=== PATIENT | female | born 1955 | race Caucasian/White ===

== ENCOUNTER → 2017-08-15 | Outpatient (CLI) | payer BC ==
[~2017-08-15] MED LIST: ALBU90OI INH; ALPR.25 PO; CHOLESTEROL MED?; CYCL10 PO; Cleocin HCl150 MG PO; ESOM20 PO; FURO20 PO; GABA100 PO; GABA300 PO; IBUP600 PO; LEVSOD100 PO; LEVSOD125 PO; LISI5 PO; METTREX2.5 PO; MONT10T PO; OMEP20ER PO; OXYACE5T PO; PARO20 PO; POTCHL20ER PO; PRAV20 PO; THEO200ERC PO; TRAM50 PO; VERAMYST NASAL SPRAY; [UNRECOGNIZED DRUG - REMARK]
== END ==
LOC: LAB 14:28
DX: L30.9 Dermatitis, unspecified (principal)
CPT/HCPCS: 87102; 87220

== ENCOUNTER → 2018-03-26 | Outpatient (CLI) | payer BC | END | disposition home or self-care (01) | LOC: LAB SHORT 13:45 → PLD 13:45 | DX: L30.8 Other specified dermatitis (principal) | CPT/HCPCS: 88305; 88312 ==

== ENCOUNTER → 2018-03-26 | Outpatient (CLI) | payer BC | END | disposition home or self-care (01) | LOC: LAB SHORT 10:05 → LAB 10:05 | DX: L08.0 Pyoderma (principal) | CPT/HCPCS: 87070; 87077; 87147; 87186; 87205 ==

== ENCOUNTER → 2019-05-12 | Outpatient (CLI) | payer BC, OTHER | END | disposition home or self-care (01) | LOC: LAB SHORT 15:30 → LAB 15:30 | DX: L08.0 Pyoderma (principal) | CPT/HCPCS: 87070; 87077; 87147; 87186; 87205 ==

== ENCOUNTER → 2019-09-11 | Outpatient (CLI) | payer BC, OTHER | LOC: LAB SHORT 15:15 → LAB EV 15:15 | DX: R32 Unspecified urinary incontinence (principal) | CPT/HCPCS: 87086 ==

== ENCOUNTER 2019-11-08 22:53 | Inpatient (IN) | payer BC, OTHER ==
[~2019-11-08] VITALS: Ht 157.5 cm; Wt 85.5 kg
[2019-11-09] MEDS ORDERED: XANAX0.25 MG PO (02:06)
[2019-11-09 03:09] LABS: BASOPHILS ABSOLUTE AUTO 0.05 K/mm3 (0.00-0.23); BASOPHILS PERCENT AUTO 0 % (0-2); EOSINOPHILS ABSOLUTE AUTO 0.15 K/mm3 (0.00-0.68); EOSINOPHILS PERCENT AUTO 1 % (0-6); Hematocrit 42.5 % (33.0-51.0); Hemoglobin 13.3 g/dL (11.5-16.0); IMMATURE GRAN ABSOLUTE AUTO 0.13 K/mm3 (0.00-0.10); IMMATURE GRAN PERCENT AUTO 1 % (0-1); LYMPHOCYTES ABSOLUTE AUTO 0.94 K/mm3 (0.84-5.20); LYMPHOCYTES PERCENT AUTO 8 % (21-46); MONOCYTES ABSOLUTE AUTO 1.05 K/mm3 (0.16-1.47); MONOCYTES PERCENT AUTO 9 % (4-13); Mean Corpuscular HGB Conc 31.3 g/dL (31.5-36.5); Mean Corpuscular Volume 83 fL (80-100); Mean Platelet Volume 11.2 fL (9.1-12.4); NEUTROPHILS ABSOLUTE AUTO 9.97 K/mm3 (1.96-9.15); NEUTROPHILS PERCENT AUTO 81 % (41-73); Platelet Count 214 K/mm3 (150-400); RDW Coefficient Variation 15.9 % (11.7-14.2); RDW Standard Deviation 47.9 fL (35.1-46.3); Red Blood Cell Count 5.12 M/mm3 (3.80-5.20); White Blood Cell Count 12.29 K/mm3 (4.00-11.30)
[2019-11-09 03:18] LABS: Albumin, Blood 3.9 g/dL (3.4-5.0); Anion Gap 8 mmol/L (6-16); Blood Urea Nitrogen 16 mg/dL (8-24); Bun/Creatinine Ratio 28.7 (12.0-20.0); CO2, Blood 26 mmol/L (21-32); Calcium, Blood 8.8 mg/dL (8.5-10.1); Chloride, Blood 105 mmol/L (98-108); Creatinine, Blood 0.56 mg/dL (0.40-1.00); Glomerular Filtration Rate >60 (60-); Glucose, Blood 139 mg/dL (70-99); Phosphorus, Blood 3.9 mg/dL (2.5-4.9); Potassium, Blood 4.1 mmol/L (3.5-5.5); Sodium, Blood 139 mmol/L (136-145)
--- NOTE | 2019-11-09 04:02 | NUR ---
ARRIVAL TO UNIT. PT ARRIVED TO UNIT VIA GURNEY, SLID TO BED WITH SLIDER SHEET. PT TOLERATED WELL, STATED INCREASE IN PAIN THAT SUBSIDED AFTER MOVING. REPORTS FULL SENSATION IN ALL EXTREMETIES. PPX3, UNABLE TO ASSESS IN R HAND R/T SPLINT. REPORTS PAIN IN R LEG AND HIP, WILL MEDICATE PER EMAR. 2L OR SATS AT 97% PT IS AA0X4, VSS TACHYCARDIC AT 114, PT HAS BEEN MOVING AROUND AND HAD AN INCREASE IN PAIN. CALL LIGHT IN REACH, PT ORIENTED TO UNIT. PT ABLE TO ROLL ONTO BEDPAN WITH ASSIST, TOLERATED WELL. NPO SINCE ARRIVAL TO UNIT. EDUCATED ON CONTINUED NPO STATUS
[2019-11-09 11:12] LABS: Source, Urine Voided
[2019-11-09 11:28] LABS: Bilirubin, Urine Neg (Neg); Blood, Urine Neg (Neg); Glucose Qualitative, Urine Neg (Neg); Ketones, Urine 2+ (Neg); Leukocyte Esterase, Urine Neg (Neg); Nitrite, Urine Neg (Neg); Protein, Urine Neg (Neg); Urobilinogen, Urine NORM (Normal)
[2019-11-09 11:29] LABS: Appearance, Urine Clear (Clear); Color, Urine Yellow (P-Yellow)
--- NOTE | 2019-11-09 17:49 | NUR ---
SHIFT SUMMARY PT A&OX4, VSS, WENT TO OR APPROX 1700 FOR REPAIR OF R HIP FX AND R WRIST FX (SPLINTED). PAIN MANAGED WELL WITH 0.5 MG DILAUDID AND 10 MG OXYCODONE. 18G SHERMAN AND 20G LFA. KWON PATENT & DRAINING YELLOW URINE, STAT LOCK ON, OFF FLOOR. WILL REPORT TO ONCOMING HIEN LÓPEZ.
--- NOTE | 2019-11-09 18:18 | NUR ---
11/09/191817 Mirella Rma IT WAS REPORTED THAT PT WAS ON SCHEDULED ROCEPHIN WHEN I TOOK OVER CASE. AFTER REVIEWING THE PT'S CHART PT HAS NOT RECEIVE, NOR WAS AN ORDER PUT IN FOR PT TO RECIEVE 1GM IV ROCEPHIN. DR. PRINCE ORDED IV 2G ANCEF, GIVEN AT 1746.
[2019-11-10 04:41] LABS: BASOPHILS ABSOLUTE AUTO 0.01 K/mm3 (0.00-0.23); BASOPHILS PERCENT AUTO 0 % (0-2); EOSINOPHILS PERCENT AUTO 0 % (0-6); Hematocrit 37.8 % (33.0-51.0); Hemoglobin 11.4 g/dL (11.5-16.0); IMMATURE GRAN ABSOLUTE AUTO 0.09 K/mm3 (0.00-0.10); IMMATURE GRAN PERCENT AUTO 1 % (0-1); LYMPHOCYTES ABSOLUTE AUTO 0.61 K/mm3 (0.84-5.20); LYMPHOCYTES PERCENT AUTO 6 % (21-46); MONOCYTES ABSOLUTE AUTO 0.82 K/mm3 (0.16-1.47); MONOCYTES PERCENT AUTO 8 % (4-13); Mean Corpuscular HGB 25.1 pg (26.0-34.0); Mean Corpuscular HGB Conc 30.2 g/dL (31.5-36.5); Mean Corpuscular Volume 83 fL (80-100); Mean Platelet Volume 10.2 fL (9.1-12.4); NEUTROPHILS ABSOLUTE AUTO 8.75 K/mm3 (1.96-9.15); NEUTROPHILS PERCENT AUTO 85 % (41-73); Platelet Count 187 K/mm3 (150-400); RDW Standard Deviation 48.6 fL (35.1-46.3); Red Blood Cell Count 4.54 M/mm3 (3.80-5.20); White Blood Cell Count 10.28 K/mm3 (4.00-11.30)
[2019-11-10 04:56] LABS: Anion Gap 5 mmol/L (6-16); Blood Urea Nitrogen 11 mg/dL (8-24); Bun/Creatinine Ratio 21.2 (12.0-20.0); CO2, Blood 28 mmol/L (21-32); Calcium, Blood 7.9 mg/dL (8.5-10.1); Chloride, Blood 102 mmol/L (98-108); Creatinine, Blood 0.52 mg/dL (0.40-1.00); Glomerular Filtration Rate >60 (60-); Glucose, Blood 130 mg/dL (70-99); Potassium, Blood 4.5 mmol/L (3.5-5.5); Sodium, Blood 135 mmol/L (136-145)
--- NOTE | 2019-11-10 06:19 | NUR ---
PATIENT RT HIP IS CLEAN AND DRY. SHE IS ABLE TO HELP US TURN HER TO GET ON THE BEDPAN. PAIN IS TREATED AND CONTROLED WITH PO NARCOTICS. NO NAUSEA. TAKING PO MEDS AND FLUIDS. RT ARM HAS BEEN ELEVATED ON PILLOWS ALL NIGHT. FINGERS ARE WARM WITH < 2SEC CAP REFILL. CALL LIGHT IN REACH.
--- NOTE | 2019-11-10 17:56 | NUR ---
SHIFT SUMMARY PT A&OX4, VSS, POD1 R WRIST ORIF AND R HIP PINNING, AQUACEL. AMBULATES WITH FWW & GB; UP TO CHAIR T/O SHIFT. PAIN MANAGED WITH 10 MG OXYCODONE. MAGNOLIA PO, DENIES N&V. WILL REPORT TO ONCOMING HIEN RN.
[2019-11-11 04:28] LABS: BASOPHILS ABSOLUTE AUTO 0.02 K/mm3 (0.00-0.23); BASOPHILS PERCENT AUTO 0 % (0-2); EOSINOPHILS ABSOLUTE AUTO 0.24 K/mm3 (0.00-0.68); EOSINOPHILS PERCENT AUTO 3 % (0-6); Hematocrit 34.8 % (33.0-51.0); Hemoglobin 10.7 g/dL (11.5-16.0); IMMATURE GRAN ABSOLUTE AUTO 0.03 K/mm3 (0.00-0.10); IMMATURE GRAN PERCENT AUTO 0 % (0-1); LYMPHOCYTES PERCENT AUTO 17 % (21-46); MONOCYTES ABSOLUTE AUTO 1.13 K/mm3 (0.16-1.47); MONOCYTES PERCENT AUTO 13 % (4-13); Mean Corpuscular HGB Conc 30.7 g/dL (31.5-36.5); Mean Corpuscular Volume 85 fL (80-100); Mean Platelet Volume 9.9 fL (9.1-12.4); NEUTROPHILS ABSOLUTE AUTO 5.65 K/mm3 (1.96-9.15); NEUTROPHILS PERCENT AUTO 67 % (41-73); Platelet Count 171 K/mm3 (150-400); RDW Coefficient Variation 16.5 % (11.7-14.2); RDW Standard Deviation 51.2 fL (35.1-46.3); Red Blood Cell Count 4.11 M/mm3 (3.80-5.20); White Blood Cell Count 8.47 K/mm3 (4.00-11.30)
[2019-11-11 04:43] LABS: Anion Gap 4 mmol/L (6-16); Blood Urea Nitrogen 16 mg/dL (8-24); Bun/Creatinine Ratio 27.8 (12.0-20.0); CO2, Blood 31 mmol/L (21-32); Calcium, Blood 7.8 mg/dL (8.5-10.1); Chloride, Blood 103 mmol/L (98-108); Creatinine, Blood 0.58 mg/dL (0.40-1.00); Glomerular Filtration Rate >60 (60-); Glucose, Blood 85 mg/dL (70-99); Sodium, Blood 138 mmol/L (136-145)
--- NOTE | 2019-11-11 04:47 | NUR ---
SHIFT SUMMARY POD 2 RIGHT HIP PINNIN AND RIGHT WRIST ORIF. AQUACEL TO HIP APPEARS C/D/I. CAST/WRAP TO RUE C/D/I. PT A/OX4 W/VSS. PAIN MANAGED WITH REPOSITIONING, ICE THERAPY, AND Q4 PO MEDICATION. TOLERATING REGULAR DIET. VOIDING WITHOUT DIFFICULTY. ABLE TO ASSIST SOME WITH REPOSITIONING. APPEARS TO HAVE SLEPT WELL T/O SHIFT. PLAN TO CONT WORKING WITH THERAPY TODAY. WILL CONT TO MONITOR AND GIVE REPORT TO ONCOMING RN.
--- NOTE | 2019-11-11 10:16 | NUR ---
TURNING OVER CARE TO ARTHUR Schmitz RN
--- NOTE | 2019-11-11 10:40 | NUR ---
assumed care of pt, recvd report from previous RN Abimbola, pt sitting up in chair watching television
--- NOTE | 2019-11-11 11:00 | NUR ---
dr bonds rounding on pt
--- NOTE | 2019-11-11 14:41 | NUR ---
Late Entry. Spiritual care note for 11/10/19. Spiritual care visit conducted. Patient tells me about her fall, her medical issues, her family unit complications, the of her in July of this year and the recent of the 25 year old nephew that she helped raise. Patient tells me about the personal, mental and emotional struggles she has been dealing with. She also explains about how grateful she is for the life that she has been able to have and the love she has been able to give and receive. I listen empathically, establish therapeutic alliance, reinforce helpful attitudes and practices and provide grief support, pastoral care and prayer. Patient responds well and shows signs of restored jv and catharsis. I will continue to remain available to patient and family.
--- NOTE | 2019-11-11 16:20 | NUR ---
Patient is sitting on chair and resting. Patient talks about her personal issues and fears. I listen empathically and provide companionship, pastoral consumer credit counselor and prayer. Patient responds well and voices appreciation for the visit. I will continue to remain available to patient and family.
--- NOTE | 2019-11-11 17:37 | NUR ---
shift summary: vss, no acute changes, pt remained a/o x 4, pleasant/cooperative t/o shift. pt tolerated PO intake with no n/v. Urine output >400 ml this shift, no BM this shift. Pt worked with PT/OT this shift, tolerated well. pt rates pain at 3-5/10, medicated per mar with 2-4/10 on reassessments. pt up in chair for lunch/dinner, able to transfer with michael walker, gait belt and one person assist. lungs remain slightly course upper lobes, occasional congested sounding cough that pt states is just "a little phlegm". 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 good capillary refill R sided extremities, pulses palpable and strong R foot, difficulty palpating R wrist r/t bulky dressing. No draining from dressings.
--- NOTE | 2019-11-11 23:46 | NUR ---
PT WAS UP IN CHAIR FOR BEGINNING OF SHIFT AND SLEEPING. WHEN AWAKE,STEPPED TO BSC THEN BACK TO BED. PT REQUIRED 3 ASSIST AND GAIT BELT WITH FREQ REDIRECT. PT APPEARING WEAK. PT WAS UNABLE TO URINATE. IN/OUT CATH REQUIRED WITH 500 ML RETURN.PT REPORTS PRE EXISTING URINARY ISSUES. REPOSITIONED PT ON R SIDE WHEN CATH COMPLETED.
[2019-11-12 04:28] LABS: BASOPHILS ABSOLUTE AUTO 0.04 K/mm3 (0.00-0.23); BASOPHILS PERCENT AUTO 0 % (0-2); EOSINOPHILS ABSOLUTE AUTO 0.36 K/mm3 (0.00-0.68); EOSINOPHILS PERCENT AUTO 4 % (0-6); Hematocrit 34.3 % (33.0-51.0); Hemoglobin 10.7 g/dL (11.5-16.0); IMMATURE GRAN ABSOLUTE AUTO 0.02 K/mm3 (0.00-0.10); IMMATURE GRAN PERCENT AUTO 0 % (0-1); LYMPHOCYTES ABSOLUTE AUTO 1.59 K/mm3 (0.84-5.20); LYMPHOCYTES PERCENT AUTO 16 % (21-46); MONOCYTES ABSOLUTE AUTO 1.33 K/mm3 (0.16-1.47); MONOCYTES PERCENT AUTO 14 % (4-13); Mean Corpuscular HGB Conc 31.2 g/dL (31.5-36.5); Mean Corpuscular Volume 84 fL (80-100); Mean Platelet Volume 10.3 fL (9.1-12.4); NEUTROPHILS ABSOLUTE AUTO 6.36 K/mm3 (1.96-9.15); NEUTROPHILS PERCENT AUTO 66 % (41-73); Platelet Count 177 K/mm3 (150-400); RDW Coefficient Variation 16.2 % (11.7-14.2); RDW Standard Deviation 49.7 fL (35.1-46.3); Red Blood Cell Count 4.11 M/mm3 (3.80-5.20)
[2019-11-12 04:46] LABS: Anion Gap 5 mmol/L (6-16); Blood Urea Nitrogen 18 mg/dL (8-24); Bun/Creatinine Ratio 34.2 (12.0-20.0); CO2, Blood 31 mmol/L (21-32); Chloride, Blood 101 mmol/L (98-108); Creatinine, Blood 0.53 mg/dL (0.40-1.00); Glomerular Filtration Rate >60 (60-); Glucose, Blood 89 mg/dL (70-99); Sodium, Blood 137 mmol/L (136-145)
--- NOTE | 2019-11-12 07:44 | NUR ---
SUMMARY AFEBRILE TONIGHT, PT REPORTS ADEQUATE PAIN CONTROL.
--- NOTE | 2019-11-12 15:57 | NUR ---
SUMMARY: PT IS POD3 R HIP PINNING AND R WRIST FX REPAIR. NO ACUTE CHANGE TODAY. VSS, PT HAS BEEN SLEEPY, AWAKENS EASILY, ORIENTED. ABLE TO TO WORK WITH PT/OT, SEE ASSESSMENT NOTES. CSM INTACT TO R ARM AND LEG. PT UNABLE TO VOID AND STRAIGHT CATHED AT 1530. DRAINED 600ML. PAIN SEEMS TO BE WELL MANAGED WITH 1-2 ROXICODONE. PLAN IS FOR SNF. NO SAFETY CONCERNS AT THIS TIME, WILL REPORT TO NOC RN
[2019-11-13 04:02] LABS: BASOPHILS ABSOLUTE AUTO 0.04 K/mm3 (0.00-0.23); BASOPHILS PERCENT AUTO 0 % (0-2); EOSINOPHILS ABSOLUTE AUTO 0.42 K/mm3 (0.00-0.68); EOSINOPHILS PERCENT AUTO 5 % (0-6); Hematocrit 34.7 % (33.0-51.0); Hemoglobin 10.8 g/dL (11.5-16.0); IMMATURE GRAN ABSOLUTE AUTO 0.04 K/mm3 (0.00-0.10); IMMATURE GRAN PERCENT AUTO 0 % (0-1); LYMPHOCYTES ABSOLUTE AUTO 1.48 K/mm3 (0.84-5.20); LYMPHOCYTES PERCENT AUTO 16 % (21-46); MONOCYTES ABSOLUTE AUTO 1.29 K/mm3 (0.16-1.47); MONOCYTES PERCENT AUTO 14 % (4-13); Mean Corpuscular HGB 26.7 pg (26.0-34.0); Mean Corpuscular HGB Conc 31.1 g/dL (31.5-36.5); Mean Corpuscular Volume 86 fL (80-100); NEUTROPHILS ABSOLUTE AUTO 5.98 K/mm3 (1.96-9.15); NEUTROPHILS PERCENT AUTO 65 % (41-73); RDW Coefficient Variation 15.9 % (11.7-14.2); RDW Standard Deviation 49.8 fL (35.1-46.3); Red Blood Cell Count 4.05 M/mm3 (3.80-5.20); White Blood Cell Count 9.25 K/mm3 (4.00-11.30)
[2019-11-13 04:58] LABS: Mean Platelet Volume 11.2 fL (9.1-12.4); Platelet Count 154 K/mm3 (150-400)
--- NOTE | 2019-11-13 06:48 | NUR ---
SUMMARY PT WTIH NO VOIDING AND CONTINUES WITH BLADDER SCANS REQUIRING CATH, INSTRUCTOR NURSE MINERVA SPOKE WITH MAXIMINO AND ADVISED ? IF TO LEAVE KWON IN OR U/A? PT HAS NOTED SOME REMOTE HX OF URINARY ISSUES PER HER VERB.MAXIMINO ADVISED FOR THIS TO BE REVISITED THIS AM PER DAY PHYSICIANS.PT HAS BEEN AFEBRIL TONIGHT.
[2019-11-13 13:17] LABS: Source, Urine Catheter
[2019-11-13 14:17] LABS: Bilirubin, Urine Neg (Neg); Blood, Urine 1+ (Neg); Glucose Qualitative, Urine Neg (Neg); Ketones, Urine Neg (Neg); Leukocyte Esterase, Urine Neg (Neg); Nitrite, Urine Neg (Neg); Protein, Urine Neg (Neg); Urobilinogen, Urine NORM (Normal)
[2019-11-13 14:27] LABS: Appearance, Urine Clear (Clear); Color, Urine Yellow (P-Yellow)
[2019-11-13 14:29] LABS: Bacteria Few /hpf; Squamous Epithelial Cells Rare /hpf (Few)
--- NOTE | 2019-11-13 15:16 | NUR ---
PT UNABLE TO VOID, BLADDER SCAN SHOWED OVER 400ML. PT STRAIGHT CATHED AT 1230, 500ML OF URINE DRAINED. DR. SEALS MADE AWARE OF THIS. WILL CTM
--- NOTE | 2019-11-13 17:47 | NUR ---
DISCHARGE/TRANSPORT TO [facility]: REPORT GIVEN TO RN AT [facility]. [facility] HERE FOR PT AT ABOUT 1700. TRANSPORTED OUT VIA WHEELCHAIR
== END 2019-11-13 17:20 | DRG 481 ==
LOC: ER 22:53 → SURS 11-09 03:22
PROVIDERS: Family Medicine; Orthopaedic Surgery; ADMIT Family Medicine
PROC: 0QS634Z Reposition Right Upper Femur with Internal Fixation Device, Percutaneous Approach (ICD-10-PCS; principal; 2019-11-09 19:30)
PROC: 0PSH04Z Reposition Right Radius with Internal Fixation Device, Open Approach (ICD-10-PCS; 2019-11-09 19:30)
DX: S72.091A Other fracture of head and neck of right femur, initial encounter for closed fracture (principal); S52.501A Unspecified fracture of the lower end of right radius, initial encounter for closed fracture; W19.XXXA Unspecified fall, initial encounter; J45.909 Unspecified asthma, uncomplicated; E03.9 Hypothyroidism, unspecified; E78.5 Hyperlipidemia, unspecified; K21.9 Gastro-esophageal reflux disease without esophagitis
CPT/HCPCS: 29125; 36415; 71045; 73100; 73110; 73502; 73610; 73700; 80048; 80069; 81001; 81003; 85025; 96374; 96375; 96376; 97110; 97116; 97162; 97166; 97530; 97535; 99285-25; A9270; A9270-GY; C1713; C1769; J0690; J1100; J1170; J2250; J2405; J2704; J3010; J7030

== ENCOUNTER → 2020-09-05 | Outpatient (CLI) | payer MEDICARE, BC ==
[~2020-09-05] MED LIST changes: +XANAX0.25 MG PO
== END | disposition home or self-care (01) ==
LOC: LAB 11:00 → LAB SHORT 11:00
DX: L08.0 Pyoderma (principal)
CPT/HCPCS: 87070; 87205

== ENCOUNTER → 2020-09-07 | Outpatient (CLI) | payer MEDICARE, BC | END | disposition home or self-care (01) | LOC: LAB 18:24 → LAB SHORT 18:24 | DX: M54.9 Dorsalgia, unspecified (principal) | CPT/HCPCS: 87077; 87086; 87186 ==

== ENCOUNTER → 2020-10-24 | Outpatient (CLI) | payer MEDICARE, BC | END | disposition home or self-care (01) | LOC: LAB SHORT 07:26 | DX: L30.8 Other specified dermatitis (principal) | CPT/HCPCS: 88305; 88312; 88313 ==

== ENCOUNTER → 2020-10-24 | Outpatient (CLI) | payer MEDICARE, BC ==
[2020-10-24 16:39] LABS: Source, Urine Clean Catch
[2020-10-24 18:38] LABS: Appearance, Urine Clear (Clear); Bilirubin, Urine Neg (Neg); Blood, Urine 1+ (Neg); Color, Urine Yellow (P-Yellow); Glucose Qualitative, Urine Neg (Neg); Ketones, Urine 1+ (Neg); Leukocyte Esterase, Urine 3+ (Neg); Nitrite, Urine Neg (Neg); Protein, Urine Neg (Neg); Urobilinogen, Urine NORM (Normal)
[2020-10-24 19:10] LABS: Bacteria Many /hpf; Squamous Epithelial Cells Few /hpf (Few)
[2020-10-24 19:11] LABS: Amorphous Light (0-Heavy); Mucus Light (0-Heavy); Renal Epithelial Rare /hpf (0-Rare); Transitional Epithelial Cells Rare /hpf (0-Rare)
== END | disposition home or self-care (01) ==
LOC: OLS 16:38 → LAB SHORT 16:38 → LAB 16:38
PROVIDERS: Dermatology
DX: L08.0 Pyoderma (principal)
CPT/HCPCS: 81001; 87070; 87077; 87086; 87147; 87186; 87205

== ENCOUNTER → 2020-12-13 | Outpatient (CLI) | payer MEDICARE, BC | END | disposition home or self-care (01) | LOC: LAB 13:43 → LAB SHORT 13:43 | DX: R30.9 Painful micturition, unspecified (principal) | CPT/HCPCS: 87077; 87086; 87186 ==

== ENCOUNTER → 2020-12-22 | Outpatient (CLI) | payer MEDICARE, BC ==
[2020-12-22 15:59] LABS: BASOPHILS ABSOLUTE AUTO 0.02 K/mm3 (0.00-0.23); BASOPHILS PERCENT AUTO 0 % (0-2); EOSINOPHILS ABSOLUTE AUTO 0.25 K/mm3 (0.00-0.68); EOSINOPHILS PERCENT AUTO 4 % (0-6); Hematocrit 37.2 % (33.0-51.0); Hemoglobin 11.9 g/dL (11.5-16.0); IMMATURE GRAN ABSOLUTE AUTO 0.03 K/mm3 (0.00-0.10); IMMATURE GRAN PERCENT AUTO 1 % (0-1); LYMPHOCYTES ABSOLUTE AUTO 0.98 K/mm3 (0.84-5.20); LYMPHOCYTES PERCENT AUTO 17 % (21-46); MONOCYTES ABSOLUTE AUTO 0.71 K/mm3 (0.16-1.47); MONOCYTES PERCENT AUTO 12 % (4-13); Mean Corpuscular HGB 25.9 pg (26.0-34.0); Mean Corpuscular Volume 81 fL (80-100); Mean Platelet Volume 9.8 fL (9.1-12.4); NEUTROPHILS ABSOLUTE AUTO 3.89 K/mm3 (1.96-9.15); NEUTROPHILS PERCENT AUTO 66 % (41-73); Platelet Count 215 K/mm3 (150-400); RDW Coefficient Variation 17.9 % (11.7-14.2); RDW Standard Deviation 51.7 fL (35.1-46.3); Red Blood Cell Count 4.59 M/mm3 (3.80-5.20); White Blood Cell Count 5.88 K/mm3 (4.00-11.30)
[2020-12-22 16:02] LABS: Alanine Aminotransfer (ALT/SGP 25 U/L (12-78); Albumin, Blood 3.4 g/dL (3.4-5.0); Alk Phos 73 U/L (40-126); Anion Gap 7 mmol/L (6-16); Aspartate Aminotrans (AST/SGOT 27 U/L (12-37); Bilirubin, Total 0.3 mg/dL (0.1-1.0); Blood Urea Nitrogen 20 mg/dL (8-24); Bun/Creatinine Ratio 31.3 (12.0-20.0); CO2, Blood 28 mmol/L (21-32); Calcium, Blood 8.4 mg/dL (8.5-10.1); Chloride, Blood 101 mmol/L (98-108); Creatinine, Blood 0.64 mg/dL (0.40-1.00); Globulin, Blood 3.5 g/dL (2.2-4.0); Glomerular Filtration Rate >60 (60-); Glucose, Blood 86 mg/dL (70-99); Potassium, Blood 4.2 mmol/L (3.5-5.5); Sodium, Blood 136 mmol/L (136-145); Total Protein, Blood 6.9 g/dL (6.4-8.2)
== END | disposition home or self-care (01) ==
LOC: LAB SHORT 15:49 → LAB 15:49
PROVIDERS: Physician Assistant
DX: N39.0 Urinary tract infection, site not specified (principal)
CPT/HCPCS: 80053; 85025; 87077; 87086; 87186

== ENCOUNTER → 2021-02-07 | Outpatient (CLI) | payer MEDICARE, BC | END | disposition home or self-care (01) | LOC: LAB SHORT 15:24 → LAB 15:24 | DX: R30.9 Painful micturition, unspecified (principal) | CPT/HCPCS: 87077; 87086; 87186 ==

== ENCOUNTER 2021-08-22 19:45 | Emergency (ER) | payer MEDICARE, BC ==
[~2021-08-22] VITALS: Ht 160 cm; Wt 74.4 kg
[2021-08-22 20:31] LABS: BASOPHILS ABSOLUTE AUTO 0.02 K/mm3 (0.00-0.23); BASOPHILS PERCENT AUTO 0 % (0-2); EOSINOPHILS ABSOLUTE AUTO 0.29 K/mm3 (0.00-0.68); EOSINOPHILS PERCENT AUTO 4 % (0-6); Hematocrit 41.7 % (33.0-51.0); Hemoglobin 12.8 g/dL (11.5-16.0); IMMATURE GRAN ABSOLUTE AUTO 0.01 K/mm3 (0.00-0.10); IMMATURE GRAN PERCENT AUTO 0 % (0-1); LYMPHOCYTES ABSOLUTE AUTO 1.18 K/mm3 (0.84-5.20); LYMPHOCYTES PERCENT AUTO 17 % (21-46); MONOCYTES ABSOLUTE AUTO 0.83 K/mm3 (0.16-1.47); MONOCYTES PERCENT AUTO 12 % (4-13); Mean Corpuscular HGB 24.9 pg (26.0-34.0); Mean Corpuscular HGB Conc 30.7 g/dL (31.5-36.5); Mean Corpuscular Volume 81 fL (80-100); Mean Platelet Volume 9.7 fL (9.1-12.4); NEUTROPHILS ABSOLUTE AUTO 4.82 K/mm3 (1.96-9.15); NEUTROPHILS PERCENT AUTO 67 % (41-73); Platelet Count 250 K/mm3 (150-400); RDW Coefficient Variation 15.8 % (11.7-14.2); RDW Standard Deviation 46.5 fL (35.1-46.3); Red Blood Cell Count 5.14 M/mm3 (3.80-5.20); White Blood Cell Count 7.15 K/mm3 (4.00-11.30)
[2021-08-22 20:34] LABS: Source, Urine Clean Catch
[2021-08-22 20:40] LABS: Bilirubin, Urine Neg (Neg); Blood, Urine 1+ (Neg); Glucose Qualitative, Urine Neg (Neg); Ketones, Urine Neg (Neg); Leukocyte Esterase, Urine 3+ (Neg); Nitrite, Urine Neg (Neg); Protein, Urine 1+ (Neg); Specific Gravity, Urine 1.015 (1.003-1.022); Urobilinogen, Urine NORM (Normal)
[2021-08-22 20:56] LABS: Appearance, Urine Hazy (Clear); Color, Urine Yellow (P-Yellow)
[2021-08-22 20:59] LABS: Bacteria Mod /hpf; Red Blood Cells, Urine 0-2 /hpf (0-2); Squamous Epithelial Cells Rare /hpf (Few); White Blood Cells, Urine 25-50 /hpf (0-5)
[2021-08-22 21:00] LABS: Mucus Light (0-Heavy)
[2021-08-22 21:12] LABS: Alanine Aminotransfer (ALT/SGP 35 U/L (12-78); Albumin, Blood 3.7 g/dL (3.4-5.0); Alk Phos 88 U/L (50-136); Anion Gap 7 mmol/L (6-16); Aspartate Aminotrans (AST/SGOT 26 U/L (12-37); Bilirubin, Total 0.3 mg/dL (0.1-1.0); Blood Urea Nitrogen 19 mg/dL (8-24); Bun/Creatinine Ratio 33.9 (12.0-20.0); CO2, Blood 28 mmol/L (21-32); Calcium, Blood 8.8 mg/dL (8.5-10.1); Chloride, Blood 104 mmol/L (98-108); Creatinine, Blood 0.56 mg/dL (0.40-1.00); Globulin, Blood 3.7 g/dL (2.2-4.0); Glomerular Filtration Rate >60 (60-); Glucose, Blood 74 mg/dL (70-99); Potassium, Blood 4.4 mmol/L (3.5-5.5); Sodium, Blood 139 mmol/L (136-145); Total Protein, Blood 7.4 g/dL (6.4-8.2)
[2021-08-22] MEDS ORDERED: AUGMENTIN XR 11 EACH PO (21:50)
[2021-08-22] MEDS ORDERED: Prozac40 MG PO (22:10)
[2021-08-22] MEDS ORDERED: LAMO100 PO ×2 (22:11)
[2021-08-22] MEDS ORDERED: PROP10 PO (22:13)
[2021-08-22] MEDS ORDERED: HYDPAM25 PO (22:13)
== END 2021-08-22 23:20 | disposition home or self-care (01) ==
LOC: ER 19:45
PROVIDERS: Physician Assistant
DX: K57.32 Diverticulitis of large intestine without perforation or abscess without bleeding (principal); N39.0 Urinary tract infection, site not specified; Z79.2 Long term (current) use of antibiotics; Z79.899 Other long term (current) drug therapy; Z88.5 Allergy status to narcotic agent; Z91.040 Latex allergy status
CPT/HCPCS: 36415; 74177; 80053; 81001; 83690; 85025; 87077; 87086; 87186; 93005; 93010; 99284-25; A9270; J7030; Q9967

== ENCOUNTER 2021-09-14 09:50 | Emergency (ER) | payer MEDICARE, BC ==
[~2021-09-14] VITALS: Ht 157.5 cm; Wt 71.2 kg
[~2021-09-14 09:50] MED LIST changes: +AUGMENTIN XR 11 EACH PO; +HYDPAM25 PO; +LAMO100 PO; +PROP10 PO; +Prozac40 MG PO
[2021-09-14] MEDS ORDERED: AMOX-CLAV 500-1 EAC5 (10:11)
[2021-09-14] MEDS ORDERED: TROSPIUM CHLORI20 M1 PO (10:12)
[2021-09-14 11:00] LABS: Source, Urine Clean Catch
[2021-09-14 11:03] LABS: BASOPHILS ABSOLUTE AUTO 0.03 K/mm3 (0.00-0.23); BASOPHILS PERCENT AUTO 0 % (0-2); EOSINOPHILS ABSOLUTE AUTO 0.23 K/mm3 (0.00-0.68); EOSINOPHILS PERCENT AUTO 3 % (0-6); Hematocrit 41.3 % (33.0-51.0); Hemoglobin 12.7 g/dL (11.5-16.0); IMMATURE GRAN ABSOLUTE AUTO 0.02 K/mm3 (0.00-0.10); IMMATURE GRAN PERCENT AUTO 0 % (0-1); LYMPHOCYTES ABSOLUTE AUTO 0.94 K/mm3 (0.84-5.20); LYMPHOCYTES PERCENT AUTO 14 % (21-46); MONOCYTES ABSOLUTE AUTO 0.69 K/mm3 (0.16-1.47); MONOCYTES PERCENT AUTO 10 % (4-13); Mean Corpuscular HGB 24.6 pg (26.0-34.0); Mean Corpuscular HGB Conc 30.8 g/dL (31.5-36.5); Mean Corpuscular Volume 80 fL (80-100); Mean Platelet Volume 9.8 fL (9.1-12.4); NEUTROPHILS ABSOLUTE AUTO 4.91 K/mm3 (1.96-9.15); NEUTROPHILS PERCENT AUTO 72 % (41-73); Platelet Count 204 K/mm3 (150-400); RDW Coefficient Variation 15.8 % (11.7-14.2); RDW Standard Deviation 45.9 fL (35.1-46.3); Red Blood Cell Count 5.16 M/mm3 (3.80-5.20); White Blood Cell Count 6.82 K/mm3 (4.00-11.30)
[2021-09-14 11:05] LABS: Appearance, Urine Cloudy (Clear); Bilirubin, Urine Neg (Neg); Blood, Urine 4+ (Neg); Color, Urine Yellow (P-Yellow); Glucose Qualitative, Urine Neg (Neg); Ketones, Urine Neg (Neg); Leukocyte Esterase, Urine 3+ (Neg); Nitrite, Urine Pos (Neg); Protein, Urine 2+ (Neg); Urobilinogen, Urine NORM (Normal); pH, Urine 6.5 (5.0-8.0)
[2021-09-14 11:24] LABS: Alanine Aminotransfer (ALT/SGP 33 U/L (12-78); Albumin, Blood 3.5 g/dL (3.4-5.0); Albumin/Globulin Ratio 0.9 (0.8-1.8); Alk Phos 91 U/L (50-136); Anion Gap 6 mmol/L (6-16); Aspartate Aminotrans (AST/SGOT 27 U/L (12-37); Bilirubin, Total 0.3 mg/dL (0.1-1.0); Blood Urea Nitrogen 14 mg/dL (8-24); Bun/Creatinine Ratio 28.2 (12.0-20.0); CO2, Blood 28 mmol/L (21-32); Calcium, Blood 8.9 mg/dL (8.5-10.1); Chloride, Blood 105 mmol/L (98-108); Globulin, Blood 3.8 g/dL (2.2-4.0); Glomerular Filtration Rate >60 (60-); Glucose, Blood 95 mg/dL (70-99); Sodium, Blood 139 mmol/L (136-145); Total Protein, Blood 7.3 g/dL (6.4-8.2)
[2021-09-14 11:27] LABS: Bacteria Many /hpf; Mucus Mod (0-Heavy); Squamous Epithelial Cells Rare /hpf (Few); White Blood Cells, Urine 25-50 /hpf (0-5)
[2021-09-14 11:28] LABS: Amorphous Light (0-Heavy)
[2021-09-14] MEDS ORDERED: Diflucan200 MG PO (13:49)
[2021-09-14] MEDS ORDERED: ONDA4ODT MM (13:50)
[2021-09-14] MEDS ORDERED: CITRATE OF MAG296 M4 PO (13:50)
== END 2021-09-14 14:25 | disposition home or self-care (01) ==
LOC: ER 09:50
PROVIDERS: Student in an Organized Health Care Education/Training Program
DX: K59.00 Constipation, unspecified (principal); B37.9 Candidiasis, unspecified; E03.9 Hypothyroidism, unspecified; K21.9 Gastro-esophageal reflux disease without esophagitis; E78.5 Hyperlipidemia, unspecified; Z79.899 Other long term (current) drug therapy
CPT/HCPCS: 36415; 51702; 74177; 80053; 81001; 83690; 85025; 87086; 93005; 93010; 96374; 96375; 99284-25; A9270; C9113; J2405; J2765; J7030; Q9967

== ENCOUNTER → 2021-09-20 | Outpatient (CLI) | payer MEDICARE, BC ==
[~2021-09-20] MED LIST changes: +AMOX-CLAV 500-1 EAC5; +CITRATE OF MAG296 M4 PO; +Diflucan200 MG PO; +ONDA4ODT MM; +TROSPIUM CHLORI20 M1 PO
== END | disposition home or self-care (01) ==
LOC: LAB SHORT 08:55
DX: R30.9 Painful micturition, unspecified (principal)
CPT/HCPCS: 87086

== ENCOUNTER → 2021-11-02 | Outpatient (CLI) | payer MEDICARE, BC | END | disposition home or self-care (01) | LOC: LAB SHORT 06:30 → LAB 06:30 → LAB FUT 10-25 16:00 | DX: N20.0 Calculus of kidney (principal) | CPT/HCPCS: 81050 ==

== ENCOUNTER → 2021-11-16 | Outpatient (CLI) | payer MEDICARE, BC ==
[2021-11-16 16:55] LABS: Source, Urine Clean Catch
[2021-11-16 19:31] LABS: Appearance, Urine Hazy (Clear); Bilirubin, Urine Neg (Neg); Blood, Urine 1+ (Neg); Glucose Qualitative, Urine Neg (Neg); Ketones, Urine Neg (Neg); Leukocyte Esterase, Urine 1+ (Neg); Nitrite, Urine Neg (Neg); Protein, Urine Neg (Neg); Urobilinogen, Urine NORM (Normal)
[2021-11-16 19:54] LABS: Color, Urine Pale Yellow (P-Yellow)
[2021-11-16 19:57] LABS: Bacteria Many /hpf; Red Blood Cells, Urine Rare /hpf (0-2); Squamous Epithelial Cells Rare /hpf (Few)
== END | disposition home or self-care (01) ==
LOC: LAB 16:50 → LAB SHORT 16:50 → EDSTATUS 11-16 13:05 → LAB FUT 11-16 13:05
PROVIDERS: Urology
DX: N39.0 Urinary tract infection, site not specified (principal)
CPT/HCPCS: 81001

== ENCOUNTER → 2022-06-05 | Outpatient (CLI) | payer MEDICARE, BC ==
[2022-06-05 14:31] LABS: Source, Urine Clean Catch
[2022-06-05 18:09] LABS: Appearance, Urine Hazy (Clear); Bilirubin, Urine Neg (Neg); Blood, Urine 1+ (Neg); Color, Urine Yellow (P-Yellow); Glucose Qualitative, Urine Neg (Neg); Ketones, Urine Neg (Neg); Leukocyte Esterase, Urine 3+ (Neg); Nitrite, Urine Neg (Neg); Protein, Urine 1+ (Neg); Urobilinogen, Urine NORM (Normal)
[2022-06-05 18:32] LABS: White Blood Cells, Urine 25-50 /hpf (0-5)
[2022-06-05 18:33] LABS: Bacteria Mod /hpf; Mucus Light (0-Heavy); Renal Epithelial Few /hpf (0-Rare); Squamous Epithelial Cells Few /hpf (Few); Transitional Epithelial Cells Rare /hpf (0-Rare)
== END | disposition home or self-care (01) ==
LOC: LAB SHORT 14:30 → LAB 14:30
PROVIDERS: Internal Medicine
DX: R30.9 Painful micturition, unspecified (principal)
CPT/HCPCS: 81001; 87077; 87086; 87186

== ENCOUNTER 2022-10-05 15:00 | Emergency (ER) | payer MEDICARE, BC ==
[~2022-10-05] VITALS: Ht 157.5 cm; Wt 83.5 kg
[2022-10-05] MEDS ORDERED: Amitriptyline H10 MG PO (15:25)
[2022-10-05] MEDS ORDERED: HYDROCODONE-AC1 EA19 PO (15:26)
[2022-10-05] MEDS ORDERED: ESOMEPRAZOLE MA20 MG PO (15:26)
[2022-10-05] MEDS ORDERED: DOCUZEN 8.6-501 EACH PO (15:26)
[2022-10-05] MEDS ORDERED: PAXIL2010 PO (15:26)
[2022-10-05 18:42] LABS: Source, Urine Clean Catch
[2022-10-05 18:48] LABS: Bilirubin, Urine Neg (Neg); Blood, Urine Neg (Neg); Glucose Qualitative, Urine Neg (Neg); Ketones, Urine Neg (Neg); Leukocyte Esterase, Urine 2+ (Neg); Nitrite, Urine Neg (Neg); Protein, Urine Neg (Neg); Specific Gravity, Urine 1.015 (1.003-1.022); Urobilinogen, Urine NORM (Normal)
[2022-10-05 18:56] LABS: Color, Urine Pale Yellow (P-Yellow)
[2022-10-05 18:57] LABS: Appearance, Urine Hazy (Clear)
[2022-10-05 18:58] LABS: Red Blood Cells, Urine 0-2 /hpf (0-2)
[2022-10-05 18:59] LABS: Bacteria Many /hpf; Squamous Epithelial Cells Few /hpf (Few)
[2022-10-05 19:12] LABS: BASOPHILS ABSOLUTE AUTO 0.02 K/mm3 (0.00-0.23); BASOPHILS PERCENT AUTO 0 % (0-2); EOSINOPHILS ABSOLUTE AUTO 0.11 K/mm3 (0.00-0.68); EOSINOPHILS PERCENT AUTO 1 % (0-6); Hematocrit 38.9 % (33.0-51.0); Hemoglobin 11.9 g/dL (11.5-16.0); IMMATURE GRAN ABSOLUTE AUTO 0.03 K/mm3 (0.00-0.10); IMMATURE GRAN PERCENT AUTO 0 % (0-1); LYMPHOCYTES PERCENT AUTO 10 % (21-46); MONOCYTES ABSOLUTE AUTO 0.57 K/mm3 (0.16-1.47); MONOCYTES PERCENT AUTO 7 % (4-13); Mean Corpuscular HGB 23.6 pg (26.0-34.0); Mean Corpuscular HGB Conc 30.6 g/dL (31.5-36.5); Mean Corpuscular Volume 77 fL (80-100); Mean Platelet Volume 10.1 fL (9.1-12.4); NEUTROPHILS ABSOLUTE AUTO 6.38 K/mm3 (1.96-9.15); NEUTROPHILS PERCENT AUTO 81 % (41-73); Platelet Count 222 K/mm3 (150-400); RDW Coefficient Variation 15.7 % (11.7-14.2); RDW Standard Deviation 43.2 fL (35.1-46.3); Red Blood Cell Count 5.05 M/mm3 (3.80-5.20); White Blood Cell Count 7.91 K/mm3 (4.00-11.30)
[2022-10-05 19:33] LABS: Bun/Creatinine Ratio 17.5 (12.0-20.0); Calcium, Blood 8.8 mg/dL (8.5-10.1); Creatinine, Blood 0.63 mg/dL (0.40-1.00); Potassium, Blood 4.1 mmol/L (3.5-5.5)
[2022-10-05] MEDS ORDERED: CEFD300 PO (21:05)
== END 2022-10-05 21:51 | disposition home or self-care (01) ==
LOC: ER 15:00
PROVIDERS: Physician Assistant; Student in an Organized Health Care Education/Training Program
DX: N39.0 Urinary tract infection, site not specified (principal); E78.5 Hyperlipidemia, unspecified; K21.9 Gastro-esophageal reflux disease without esophagitis; Z79.899 Other long term (current) drug therapy; Z88.5 Allergy status to narcotic agent; Z91.040 Latex allergy status; Z87.891 Personal history of nicotine dependence
CPT/HCPCS: 36415; 80048; 81001; 85025; 87077; 87086; 87186; 99283; A9270

== ENCOUNTER → 2022-10-17 | Outpatient (CLI) | payer MEDICARE, BC ==
[~2022-10-17] MED LIST changes: +Amitriptyline H10 MG PO; +CEFD300 PO; +DOCUZEN 8.6-501 EACH PO; +ESOMEPRAZOLE MA20 MG PO; +HYDROCODONE-AC1 EA19 PO; +LEVFLO500 PO; +PAXIL2010 PO
[2022-10-19 08:34] LABS: Stool Occult Bld Immuno 1 Negative (NEGATIVE)
== END | disposition home or self-care (01) ==
LOC: LAB SHORT 16:45 → LAB 16:45
PROVIDERS: Internal Medicine
DX: E61.1 Iron deficiency (principal)
CPT/HCPCS: 82274

== ENCOUNTER 2022-10-25 13:19 | Emergency (ER) | payer MEDICARE, BC ==
[~2022-10-25] VITALS: Ht 157.5 cm; Wt 81.7 kg
[~2022-10-25 13:19] MED LIST changes: +AMIT25 PO; -Amitriptyline H10 MG PO; -LEVFLO500 PO
[2022-10-25 14:19] LABS: BASOPHILS ABSOLUTE AUTO 0.04 K/mm3 (0.00-0.23); BASOPHILS PERCENT AUTO 0 % (0-2); EOSINOPHILS ABSOLUTE AUTO 0.19 K/mm3 (0.00-0.68); EOSINOPHILS PERCENT AUTO 2 % (0-6); Hematocrit 41.6 % (33.0-51.0); Hemoglobin 12.8 g/dL (11.5-16.0); IMMATURE GRAN ABSOLUTE AUTO 0.04 K/mm3 (0.00-0.10); IMMATURE GRAN PERCENT AUTO 0 % (0-1); LYMPHOCYTES ABSOLUTE AUTO 0.56 K/mm3 (0.84-5.20); LYMPHOCYTES PERCENT AUTO 6 % (21-46); MONOCYTES ABSOLUTE AUTO 0.69 K/mm3 (0.16-1.47); MONOCYTES PERCENT AUTO 7 % (4-13); Mean Corpuscular HGB 24.1 pg (26.0-34.0); Mean Corpuscular HGB Conc 30.8 g/dL (31.5-36.5); Mean Corpuscular Volume 78 fL (80-100); Mean Platelet Volume 10.4 fL (9.1-12.4); NEUTROPHILS ABSOLUTE AUTO 8.45 K/mm3 (1.96-9.15); NEUTROPHILS PERCENT AUTO 85 % (41-73); Platelet Count 230 K/mm3 (150-400); RDW Coefficient Variation 16.6 % (11.7-14.2); RDW Standard Deviation 46.5 fL (35.1-46.3); Red Blood Cell Count 5.31 M/mm3 (3.80-5.20); White Blood Cell Count 9.97 K/mm3 (4.00-11.30)
[2022-10-25 14:21] LABS: Albumin, Blood 3.6 g/dL (3.4-5.0); Albumin/Globulin Ratio 1.1 (0.8-1.8); Bilirubin, Total 0.2 mg/dL (0.1-1.0); Bun/Creatinine Ratio 29.8 (12.0-20.0); Calcium, Blood 8.8 mg/dL (8.5-10.1); Creatinine, Blood 0.5 mg/dL (0.40-1.00); Globulin, Blood 3.3 g/dL (2.2-4.0); Potassium, Blood 4.2 mmol/L (3.5-5.5); Total Protein, Blood 6.9 g/dL (6.4-8.2)
[2022-10-25 19:10] VITALS: BP 131/70
[2022-10-25 19:37] LABS: Source, Urine Clean Catch
[2022-10-25 19:40] LABS: Appearance, Urine Hazy (Clear); Bilirubin, Urine Neg (Neg); Blood, Urine 3+ (Neg); Glucose Qualitative, Urine Neg (Neg); Ketones, Urine Neg (Neg); Leukocyte Esterase, Urine 2+ (Neg); Nitrite, Urine Pos (Neg); Protein, Urine 1+ (Neg); Urobilinogen, Urine NORM (Normal)
[2022-10-25 19:51] LABS: Color, Urine Pale Yellow (P-Yellow)
[2022-10-25 19:53] LABS: Bacteria Many /hpf; Squamous Epithelial Cells Rare /hpf (Few); White Blood Cells, Urine 25-50 /hpf (0-5)
[2022-10-25] MEDS ORDERED: LEVFLO500 PO (20:10)
== END 2022-10-25 21:15 | disposition home or self-care (01) ==
LOC: ER 13:19
PROVIDERS: Physician Assistant
DX: N39.0 Urinary tract infection, site not specified (principal); B35.4 Tinea corporis; Z88.5 Allergy status to narcotic agent; Z91.040 Latex allergy status; Z79.899 Other long term (current) drug therapy; E03.9 Hypothyroidism, unspecified; K21.9 Gastro-esophageal reflux disease without esophagitis; J45.909 Unspecified asthma, uncomplicated; Z87.891 Personal history of nicotine dependence
CPT/HCPCS: 74177; 80053; 81001; 85025; 87077; 87086; 87186; 96365-59; 96366; 96375; 99284-25; A9270; J1956; J3010; J7030; Q9967

== ENCOUNTER 2022-10-28 20:12 | Inpatient (IN) | payer MEDICARE, BC ==
[~2022-10-28] VITALS: Ht 157.5 cm; Wt 81.7 kg
[~2022-10-28 20:12] MED LIST changes: +LEVFLO500 PO
[2022-10-28] MEDS ORDERED: MONT10T PO (21:32)
[2022-10-28] MEDS ORDERED: PRED5 PO (21:32)
[2022-10-28 21:34] LABS: BASOPHILS ABSOLUTE AUTO 0.03 K/mm3 (0.00-0.23); BASOPHILS PERCENT AUTO 0 % (0-2); EOSINOPHILS ABSOLUTE AUTO 0.24 K/mm3 (0.00-0.68); EOSINOPHILS PERCENT AUTO 3 % (0-6); Hematocrit 36.7 % (33.0-51.0); Hemoglobin 11.2 g/dL (11.5-16.0); IMMATURE GRAN ABSOLUTE AUTO 0.03 K/mm3 (0.00-0.10); IMMATURE GRAN PERCENT AUTO 0 % (0-1); LYMPHOCYTES ABSOLUTE AUTO 0.84 K/mm3 (0.84-5.20); LYMPHOCYTES PERCENT AUTO 9 % (21-46); MONOCYTES ABSOLUTE AUTO 0.85 K/mm3 (0.16-1.47); MONOCYTES PERCENT AUTO 9 % (4-13); Mean Corpuscular HGB 23.7 pg (26.0-34.0); Mean Corpuscular HGB Conc 30.5 g/dL (31.5-36.5); Mean Corpuscular Volume 78 fL (80-100); Mean Platelet Volume 10.8 fL (9.1-12.4); NEUTROPHILS ABSOLUTE AUTO 7.35 K/mm3 (1.96-9.15); NEUTROPHILS PERCENT AUTO 79 % (41-73); Platelet Count 229 K/mm3 (150-400); RDW Coefficient Variation 16.3 % (11.7-14.2); RDW Standard Deviation 45.9 fL (35.1-46.3); Red Blood Cell Count 4.73 M/mm3 (3.80-5.20); White Blood Cell Count 9.34 K/mm3 (4.00-11.30)
[2022-10-28 21:54] LABS: Albumin, Blood 3.3 g/dL (3.4-5.0); Bilirubin, Total 0.3 mg/dL (0.1-1.0); Bun/Creatinine Ratio 38.1 (12.0-20.0); Calcium, Blood 8.4 mg/dL (8.5-10.1); Creatinine, Blood 0.42 mg/dL (0.40-1.00); Globulin, Blood 3.4 g/dL (2.2-4.0); Potassium, Blood 4.9 mmol/L (3.5-5.5); Total Protein, Blood 6.7 g/dL (6.4-8.2)
[2022-10-28 22:52] LABS: Source, Urine Foley catheter
[2022-10-28 22:55] LABS: Bilirubin, Urine Neg (Neg); Blood, Urine 4+ (Neg); Glucose Qualitative, Urine Neg (Neg); Ketones, Urine Neg (Neg); Leukocyte Esterase, Urine 1+ (Neg); Nitrite, Urine Neg (Neg); Protein, Urine 2+ (Neg); Urobilinogen, Urine NORM (Normal)
[2022-10-28 23:01] LABS: Appearance, Urine Clear (Clear); Bacteria Few /hpf; Color, Urine Yellow (P-Yellow); Mucus Light (0-Heavy); Red Blood Cells, Urine 50-100 /hpf (0-2); Squamous Epithelial Cells Not Seen /hpf (Few)
[2022-10-29] MEDS ORDERED: Ventolin/Prove6.7 GM INH (01:00)
[2022-10-29] MEDS ORDERED: PEPCID40 MG PO (01:00)
[2022-10-29] MEDS ORDERED: SYNTHROID150 MC1 PO (01:04)
[2022-10-29] MEDS ORDERED: AUGMENTIN 500-1 EACH PO (01:06)
[2022-10-29] MEDS ORDERED: DOCU100 PO (01:08)
[2022-10-29] MEDS ORDERED: Acetaminophen650 M1 PO (01:08)
[2022-10-29] MEDS ORDERED: MIRALAX17 GM PO (01:09)
[2022-10-29 02:01] VITALS: BP 128/66
--- NOTE | 2022-10-29 03:04 | NUR ---
PT ARRIVED TO THE UNIT. ORIENTED TO THE ROOM. WATER PROVIDED.
[2022-10-29 05:09] LABS: BASOPHILS ABSOLUTE AUTO 0.03 K/mm3 (0.00-0.23); BASOPHILS PERCENT AUTO 0 % (0-2); EOSINOPHILS ABSOLUTE AUTO 0.31 K/mm3 (0.00-0.68); EOSINOPHILS PERCENT AUTO 4 % (0-6); Hematocrit 34.2 % (33.0-51.0); Hemoglobin 10.4 g/dL (11.5-16.0); IMMATURE GRAN ABSOLUTE AUTO 0.02 K/mm3 (0.00-0.10); IMMATURE GRAN PERCENT AUTO 0 % (0-1); LYMPHOCYTES ABSOLUTE AUTO 1.12 K/mm3 (0.84-5.20); LYMPHOCYTES PERCENT AUTO 14 % (21-46); MONOCYTES ABSOLUTE AUTO 0.96 K/mm3 (0.16-1.47); MONOCYTES PERCENT AUTO 12 % (4-13); Mean Corpuscular HGB 24.1 pg (26.0-34.0); Mean Corpuscular HGB Conc 30.4 g/dL (31.5-36.5); Mean Corpuscular Volume 79 fL (80-100); Mean Platelet Volume 10.9 fL (9.1-12.4); NEUTROPHILS PERCENT AUTO 69 % (41-73); Platelet Count 205 K/mm3 (150-400); RDW Coefficient Variation 16.3 % (11.7-14.2); RDW Standard Deviation 46.8 fL (35.1-46.3); Red Blood Cell Count 4.32 M/mm3 (3.80-5.20); White Blood Cell Count 7.94 K/mm3 (4.00-11.30)
[2022-10-29 05:30] LABS: Albumin, Blood 2.9 g/dL (3.4-5.0); Albumin/Globulin Ratio 1.1 (0.8-1.8); Bilirubin, Total 0.2 mg/dL (0.1-1.0); Calcium, Blood 8.3 mg/dL (8.5-10.1); Creatinine, Blood 0.58 mg/dL (0.40-1.00); Globulin, Blood 2.7 g/dL (2.2-4.0); Potassium, Blood 3.9 mmol/L (3.5-5.5); Total Protein, Blood 5.6 g/dL (6.4-8.2)
[2022-10-29 07:41] VITALS: BP 125/58
[2022-10-29 16:36] VITALS: BP 120/66
[2022-10-29 19:05] VITALS: BP 119/69
--- NOTE | 2022-10-29 19:18 | NUR ---
PT QUITE PLEASANT TODAY. SHE 1 SBA ASST TO BATHROOM. WE ARE STILL WAITING FOR HER HOME MED, MICROFINOLATE. SISTER BROUGHT IN A PILL MINDER BOX WITH UNLABLED MEDS. I SENT HER BACK HOME FOR THE ORIGINAL BOTTLE. SHE TO COME IN THIS AFT. NOT HERE YET. PT STILL HAS SOME FLANK BACK PAIN. MED PER EMAR. SETTING HER UP TO BE DISCHARGED TOMORROW AND CONTINUE 5 DAYS ABX THROUGH THE [facility]. SHE STATES THIS SHOULD BE OKAY. FIRST APPT SET SATURDAY, 930. AGRICULTURAL EQUIPMENT TEST ENGINEER NOTIFIED NEED POWERGLIDE. NOT PLACED AT THIS TIME. BED IN LOW POSITIOIN, CALL LITE IN REACH, CALLS APPROP
[2022-10-30 04:42] VITALS: BP 136/60
[2022-10-30 05:15] LABS: BASOPHILS ABSOLUTE AUTO 0.03 K/mm3 (0.00-0.23); BASOPHILS PERCENT AUTO 0 % (0-2); EOSINOPHILS ABSOLUTE AUTO 0.23 K/mm3 (0.00-0.68); EOSINOPHILS PERCENT AUTO 3 % (0-6); Hematocrit 33.6 % (33.0-51.0); Hemoglobin 10.5 g/dL (11.5-16.0); IMMATURE GRAN ABSOLUTE AUTO 0.03 K/mm3 (0.00-0.10); IMMATURE GRAN PERCENT AUTO 0 % (0-1); LYMPHOCYTES ABSOLUTE AUTO 1.33 K/mm3 (0.84-5.20); LYMPHOCYTES PERCENT AUTO 18 % (21-46); MONOCYTES ABSOLUTE AUTO 0.67 K/mm3 (0.16-1.47); MONOCYTES PERCENT AUTO 9 % (4-13); Mean Corpuscular HGB 24.5 pg (26.0-34.0); Mean Corpuscular HGB Conc 31.3 g/dL (31.5-36.5); Mean Corpuscular Volume 78 fL (80-100); Mean Platelet Volume 10.4 fL (9.1-12.4); NEUTROPHILS ABSOLUTE AUTO 5.26 K/mm3 (1.96-9.15); NEUTROPHILS PERCENT AUTO 70 % (41-73); Platelet Count 206 K/mm3 (150-400); RDW Coefficient Variation 16.2 % (11.7-14.2); RDW Standard Deviation 45.9 fL (35.1-46.3); Red Blood Cell Count 4.29 M/mm3 (3.80-5.20); White Blood Cell Count 7.55 K/mm3 (4.00-11.30)
--- NOTE | 2022-10-30 05:23 | NUR ---
SUMMARY: NO ACUTE EVENTS OVERNIGHT. PATIENT AOX4. VSS. IV ABX GIVEN. PATIENT NEEDS POWERGLIDE PLACED TODAY THEN POSSIBLE DC WITH PUT PT IV ANTIBIOTICS. PATIENT HAS VERY EXCORIATED GROIN AND FOLDS. PERFORMED CATH CARE, CLEANED ALL FOLDS. LOOSE STOOL OVERNIGHT. CALL LIGHT IN REACH. PATIENT AMBULATES WITH WALKER SBA.
[2022-10-30 05:48] LABS: Albumin, Blood 2.9 g/dL (3.4-5.0); Bilirubin, Total 0.3 mg/dL (0.1-1.0); Bun/Creatinine Ratio 22.9 (12.0-20.0); Calcium, Blood 8.4 mg/dL (8.5-10.1); Creatinine, Blood 0.57 mg/dL (0.40-1.00); Potassium, Blood 3.5 mmol/L (3.5-5.5); Total Protein, Blood 5.9 g/dL (6.4-8.2)
[2022-10-30 07:28] VITALS: BP 145/72
[2022-10-30] MEDS ORDERED: NALOXONE HCL4 MG (11:33)
[2022-10-30] MEDS ORDERED: MYCO250 PO (11:33)
[2022-10-30] MEDS ORDERED: PRAV20 PO (11:34)
[2022-10-30] MEDS ORDERED: Sanctura20 MG PO (11:34)
[2022-10-30] MEDS ORDERED: LACT PO (11:35)
--- NOTE | 2022-10-30 12:18 | NUR ---
IV ACCESS [facility] NURSE AT BEDSIDE PLACING IV LINE FOR OUTPT ANTIBIOTIC TREATMENT. CONTINUE POC.
[2022-10-30 15:19] VITALS: BP 129/70
--- NOTE | 2022-10-30 18:01 | NUR ---
DISCHARGE HOME PT DISCHARGED HOME. EDUCATION GIVEN TO SISTER. KACEY ALLEN RIGHT UE. DRESSING CD@I. TRANSPORTED TO VEHICLE BY W/C ACCOMPANIED BY RN. CONTINUE POC.
== END 2022-10-30 17:56 | disposition home or self-care (01) | DRG 690 ==
LOC: ER 20:12 → MEDS 20:13 → ENPENDDIS 10-30 14:32 → MEDS 10-30 17:56
PROVIDERS: Emergency Medicine; Internal Medicine; Student in an Organized Health Care Education/Training Program; ADMIT Internal Medicine
PROC: 02HV33Z Insertion of Infusion Device into Superior Vena Cava, Percutaneous Approach (ICD-10-PCS; principal; 2022-10-28)
DX: N39.0 Urinary tract infection, site not specified (principal); M33.20 Polymyositis, organ involvement unspecified; Z16.29 Resistance to other single specified antibiotic; J45.909 Unspecified asthma, uncomplicated; M54.9 Dorsalgia, unspecified; G89.29 Other chronic pain; E78.5 Hyperlipidemia, unspecified; F32.A Depression, unspecified; K21.9 Gastro-esophageal reflux disease without esophagitis; B96.1 Klebsiella pneumoniae [K. pneumoniae] as the cause of diseases classified elsewhere; E03.9 Hypothyroidism, unspecified; I10 Essential (primary) hypertension; R33.9 Retention of urine, unspecified; Z87.891 Personal history of nicotine dependence; Z90.49 Acquired absence of other specified parts of digestive tract; Z98.890 Other specified postprocedural states; Z88.5 Allergy status to narcotic agent; Z91.040 Latex allergy status; Z79.899 Other long term (current) drug therapy; Z79.891 Long term (current) use of opiate analgesic; Z79.52 Long term (current) use of systemic steroids
CPT/HCPCS: 36415; 80053; 81001; 83605; 85025; 87086; 94760; 96365; 96366; 96372; 96375; 99284-25; A9270; G0378; J1170; J1650; J2185; J2405; J7030; J7512

== ENCOUNTER 2022-10-31 02:37 | Day surgery (SDC) | payer MEDICARE, BC ==
[~2022-10-31 02:37] MED LIST changes: +AUGMENTIN 500-1 EACH PO; +Acetaminophen650 M1 PO; +DOCU100 PO; +LACT PO; +MIRALAX17 GM PO; +MYCO250 PO; +NALOXONE HCL4 MG; +PEPCID40 MG PO; +PRED5 PO; +SYNTHROID150 MC1 PO; +Sanctura20 MG PO; +Ventolin/Prove6.7 GM INH
[2022-10-31 09:51] VITALS: BP 123/75
[2022-10-31 10:05] LABS: BASOPHILS ABSOLUTE AUTO 0.04 K/mm3 (0.00-0.23); BASOPHILS PERCENT AUTO 0 % (0-2); EOSINOPHILS ABSOLUTE AUTO 0.29 K/mm3 (0.00-0.68); EOSINOPHILS PERCENT AUTO 3 % (0-6); Hematocrit 40.4 % (33.0-51.0); Hemoglobin 12.3 g/dL (11.5-16.0); IMMATURE GRAN ABSOLUTE AUTO 0.04 K/mm3 (0.00-0.10); IMMATURE GRAN PERCENT AUTO 0 % (0-1); LYMPHOCYTES PERCENT AUTO 11 % (21-46); MONOCYTES PERCENT AUTO 11 % (4-13); Mean Corpuscular HGB 23.7 pg (26.0-34.0); Mean Corpuscular HGB Conc 30.4 g/dL (31.5-36.5); Mean Corpuscular Volume 78 fL (80-100); NEUTROPHILS ABSOLUTE AUTO 7.57 K/mm3 (1.96-9.15); NEUTROPHILS PERCENT AUTO 75 % (41-73); Platelet Count 264 K/mm3 (150-400); RDW Coefficient Variation 16.3 % (11.7-14.2); RDW Standard Deviation 45.2 fL (35.1-46.3); Red Blood Cell Count 5.18 M/mm3 (3.80-5.20); White Blood Cell Count 10.14 K/mm3 (4.00-11.30)
[2022-10-31 10:21] LABS: Albumin, Blood 3.4 g/dL (3.4-5.0); Bilirubin, Total 0.2 mg/dL (0.1-1.0); Bun/Creatinine Ratio 29.7 (12.0-20.0); Calcium, Blood 8.6 mg/dL (8.5-10.1); Creatinine, Blood 0.54 mg/dL (0.40-1.00); Globulin, Blood 3.3 g/dL (2.2-4.0); Potassium, Blood 3.8 mmol/L (3.5-5.5); Total Protein, Blood 6.7 g/dL (6.4-8.2)
== END 2022-10-31 10:30 | disposition home or self-care (01) ==
LOC: ATC 02:37
PROVIDERS: Internal Medicine
DX: N39.0 Urinary tract infection, site not specified (principal); B96.1 Klebsiella pneumoniae [K. pneumoniae] as the cause of diseases classified elsewhere; Z16.12 Extended spectrum beta lactamase (ESBL) resistance; R32 Unspecified urinary incontinence; M54.9 Dorsalgia, unspecified; G89.29 Other chronic pain; E03.9 Hypothyroidism, unspecified; K21.9 Gastro-esophageal reflux disease without esophagitis; E78.5 Hyperlipidemia, unspecified; J45.909 Unspecified asthma, uncomplicated; Z87.891 Personal history of nicotine dependence; Z88.5 Allergy status to narcotic agent; Z91.040 Latex allergy status; Z79.899 Other long term (current) drug therapy
CPT/HCPCS: 80053; 85025; 96365; J1335

== ENCOUNTER 2022-11-01 02:46 | Day surgery (SDC) | payer MEDICARE, BC ==
[2022-11-01 09:44] VITALS: BP 125/70
== END 2022-11-01 10:05 | disposition home or self-care (01) ==
LOC: ATC 02:46
DX: N39.0 Urinary tract infection, site not specified (principal); B96.1 Klebsiella pneumoniae [K. pneumoniae] as the cause of diseases classified elsewhere; Z16.12 Extended spectrum beta lactamase (ESBL) resistance; R32 Unspecified urinary incontinence; G89.29 Other chronic pain; E03.9 Hypothyroidism, unspecified; K21.9 Gastro-esophageal reflux disease without esophagitis; J45.909 Unspecified asthma, uncomplicated; E78.5 Hyperlipidemia, unspecified; Z87.891 Personal history of nicotine dependence; Z88.5 Allergy status to narcotic agent; Z91.040 Latex allergy status; Z79.899 Other long term (current) drug therapy
CPT/HCPCS: 96365; J1335

== ENCOUNTER 2022-11-02 03:42 | Day surgery (SDC) | payer MEDICARE, BC ==
[2022-11-02 09:39] VITALS: BP 119/74
== END 2022-11-02 16:13 | disposition home or self-care (01) ==
LOC: ATC 03:42
DX: N39.0 Urinary tract infection, site not specified (principal); B96.1 Klebsiella pneumoniae [K. pneumoniae] as the cause of diseases classified elsewhere; Z16.12 Extended spectrum beta lactamase (ESBL) resistance; R32 Unspecified urinary incontinence; G89.29 Other chronic pain; E03.9 Hypothyroidism, unspecified; K21.9 Gastro-esophageal reflux disease without esophagitis; E78.5 Hyperlipidemia, unspecified; J45.909 Unspecified asthma, uncomplicated; Z87.891 Personal history of nicotine dependence; Z88.5 Allergy status to narcotic agent; Z91.040 Latex allergy status; Z79.899 Other long term (current) drug therapy
CPT/HCPCS: 96365; J1335

== ENCOUNTER 2022-11-03 00:10 | Day surgery (SDC) | payer MEDICARE, BC ==
[2022-11-03 09:44] VITALS: BP 127/71
== END 2022-11-03 10:00 | disposition home or self-care (01) ==
LOC: ATC 00:10
DX: N39.0 Urinary tract infection, site not specified (principal); B96.1 Klebsiella pneumoniae [K. pneumoniae] as the cause of diseases classified elsewhere; Z16.12 Extended spectrum beta lactamase (ESBL) resistance; R32 Unspecified urinary incontinence; E03.9 Hypothyroidism, unspecified; K21.9 Gastro-esophageal reflux disease without esophagitis; E78.5 Hyperlipidemia, unspecified; J45.909 Unspecified asthma, uncomplicated; F32.9 Major depressive disorder, single episode, unspecified; M54.9 Dorsalgia, unspecified; G89.29 Other chronic pain; Z87.891 Personal history of nicotine dependence; Z88.5 Allergy status to narcotic agent; Z91.040 Latex allergy status; Z79.899 Other long term (current) drug therapy
CPT/HCPCS: 96365; J1335

== ENCOUNTER 2022-11-04 04:08 | Day surgery (SDC) | payer MEDICARE, BC ==
[2022-11-04 09:42] VITALS: BP 111/59
== END 2022-11-04 10:05 | disposition home or self-care (01) ==
LOC: ATC 04:08
DX: N39.0 Urinary tract infection, site not specified (principal); B96.1 Klebsiella pneumoniae [K. pneumoniae] as the cause of diseases classified elsewhere; Z16.12 Extended spectrum beta lactamase (ESBL) resistance; R32 Unspecified urinary incontinence; E03.9 Hypothyroidism, unspecified; K21.9 Gastro-esophageal reflux disease without esophagitis; E78.5 Hyperlipidemia, unspecified; J45.909 Unspecified asthma, uncomplicated; Z87.891 Personal history of nicotine dependence; Z88.5 Allergy status to narcotic agent; Z91.040 Latex allergy status; Z79.899 Other long term (current) drug therapy
CPT/HCPCS: 96365; J1335

== ENCOUNTER → 2023-02-01 | Outpatient (CLI) | payer MEDICARE, BC ==
[~2023-02-01] MED LIST changes: +PRED1
== END | disposition home or self-care (01) ==
LOC: LAB 16:45 → LAB SHORT 16:45
DX: R30.0 Dysuria (principal)
CPT/HCPCS: 87077; 87086; 87186

== ENCOUNTER → 2023-02-01 | Outpatient (CLI) | payer MEDICARE, BC ==
[~2023-02-01] MED LIST changes: -PRED1
== END | disposition home or self-care (01) ==
LOC: LAB SHORT 08:40 → LAB 08:40 → LAB FUT 01-01 15:45
DX: N20.0 Calculus of kidney (principal)
CPT/HCPCS: 81050

== ENCOUNTER 2023-02-07 16:56 | Emergency (ER) | payer MEDICARE, BC ==
[~2023-02-07] VITALS: Ht 157.5 cm; Wt 79.4 kg
[2023-02-07 17:33] LABS: BASOPHILS ABSOLUTE AUTO 0.04 K/mm3 (0.00-0.23); BASOPHILS PERCENT AUTO 1 % (0-2); EOSINOPHILS ABSOLUTE AUTO 0.21 K/mm3 (0.00-0.68); EOSINOPHILS PERCENT AUTO 3 % (0-6); Hematocrit 37.8 % (33.0-51.0); Hemoglobin 11.6 g/dL (11.5-16.0); IMMATURE GRAN ABSOLUTE AUTO 0.02 K/mm3 (0.00-0.10); IMMATURE GRAN PERCENT AUTO 0 % (0-1); LYMPHOCYTES ABSOLUTE AUTO 1.08 K/mm3 (0.84-5.20); LYMPHOCYTES PERCENT AUTO 14 % (21-46); MONOCYTES ABSOLUTE AUTO 0.94 K/mm3 (0.16-1.47); MONOCYTES PERCENT AUTO 13 % (4-13); Mean Corpuscular HGB 24.1 pg (26.0-34.0); Mean Corpuscular HGB Conc 30.7 g/dL (31.5-36.5); Mean Corpuscular Volume 79 fL (80-100); Mean Platelet Volume 10.9 fL (9.1-12.4); NEUTROPHILS ABSOLUTE AUTO 5.22 K/mm3 (1.96-9.15); NEUTROPHILS PERCENT AUTO 70 % (41-73); Platelet Count 264 K/mm3 (150-400); RDW Coefficient Variation 15.4 % (11.7-14.2); RDW Standard Deviation 43.4 fL (35.1-46.3); Red Blood Cell Count 4.81 M/mm3 (3.80-5.20); White Blood Cell Count 7.51 K/mm3 (4.00-11.30)
[2023-02-07 18:44] LABS: Albumin, Blood 3.7 g/dL (3.4-5.0); Albumin/Globulin Ratio 1.3 (0.8-1.8); Bilirubin, Total 0.3 mg/dL (0.1-1.0); Bun/Creatinine Ratio 26.3 (12.0-20.0); Calcium, Blood 8.6 mg/dL (8.5-10.1); Creatinine, Blood 0.49 mg/dL (0.40-1.00); Globulin, Blood 2.8 g/dL (2.2-4.0); Potassium, Blood 4.1 mmol/L (3.5-5.5); Total Protein, Blood 6.5 g/dL (6.4-8.2)
[2023-02-07 18:52] LABS: Source, Urine Straight Cath
[2023-02-07 19:32] LABS: Appearance, Urine Clear (Clear); Bilirubin, Urine Neg (Neg); Blood, Urine 2+ (Neg); Color, Urine Yellow (P-Yellow); Glucose Qualitative, Urine Neg (Neg); Ketones, Urine Neg (Neg); Leukocyte Esterase, Urine Neg (Neg); Nitrite, Urine Neg (Neg); Protein, Urine Neg (Neg); Specific Gravity, Urine 1.015 (1.003-1.022); Urobilinogen, Urine NORM (Normal)
[2023-02-07 19:45] LABS: Bacteria Few /hpf; Squamous Epithelial Cells Rare /hpf (Few)
[2023-02-07] MEDS ORDERED: MONT10T PO (20:24)
[2023-02-07] MEDS ORDERED: PRED1 (20:27)
[2023-02-07 22:00] VITALS: BP 150/83
== END 2023-02-07 22:29 | disposition home or self-care (01) ==
LOC: ER 16:56
PROVIDERS: Physician Assistant
DX: R10.9 Unspecified abdominal pain (principal); E03.9 Hypothyroidism, unspecified; E78.5 Hyperlipidemia, unspecified; J45.909 Unspecified asthma, uncomplicated; K21.9 Gastro-esophageal reflux disease without esophagitis; Z88.5 Allergy status to narcotic agent; Z91.040 Latex allergy status; Z88.6 Allergy status to analgesic agent; Z79.52 Long term (current) use of systemic steroids; Z79.899 Other long term (current) drug therapy; Z87.891 Personal history of nicotine dependence
CPT/HCPCS: 51701; 74177; 80053; 81001; 85025; 96374-59; 96375-59; 99284-25; J2405; J3010; Q9967

== ENCOUNTER 2023-05-20 13:16 | Inpatient (IN) | payer MEDICARE, BC ==
[~2023-05-20] VITALS: Ht 157.5 cm; Wt 73.6 kg
[~2023-05-20 13:16] MED LIST changes: +PRED1
[2023-05-20 13:58] LABS: BASOPHILS ABSOLUTE AUTO 0.03 K/mm3 (0.00-0.23); BASOPHILS PERCENT AUTO 0 % (0-2); EOSINOPHILS ABSOLUTE AUTO 0.31 K/mm3 (0.00-0.68); EOSINOPHILS PERCENT AUTO 4 % (0-6); Hematocrit 40.3 % (33.0-51.0); Hemoglobin 12.5 g/dL (11.5-16.0); IMMATURE GRAN ABSOLUTE AUTO 0.04 K/mm3 (0.00-0.10); IMMATURE GRAN PERCENT AUTO 1 % (0-1); LYMPHOCYTES ABSOLUTE AUTO 1.11 K/mm3 (0.84-5.20); LYMPHOCYTES PERCENT AUTO 16 % (21-46); MONOCYTES ABSOLUTE AUTO 0.88 K/mm3 (0.16-1.47); MONOCYTES PERCENT AUTO 12 % (4-13); Mean Corpuscular HGB 23.6 pg (26.0-34.0); Mean Corpuscular Volume 76 fL (80-100); NEUTROPHILS ABSOLUTE AUTO 4.76 K/mm3 (1.96-9.15); NEUTROPHILS PERCENT AUTO 67 % (41-73); RDW Coefficient Variation 16.4 % (11.7-14.2); RDW Standard Deviation 44.1 fL (35.1-46.3); White Blood Cell Count 7.13 K/mm3 (4.00-11.30)
[2023-05-20 14:11] LABS: Albumin, Blood 3.5 g/dL (3.4-5.0); Albumin/Globulin Ratio 1.1 (0.8-1.8); Bilirubin, Total 0.2 mg/dL (0.1-1.0); Bun/Creatinine Ratio 25.6 (12.0-20.0); Calcium, Blood 8.7 mg/dL (8.5-10.1); Creatinine, Blood 0.55 mg/dL (0.40-1.00); Globulin, Blood 3.1 g/dL (2.2-4.0); Potassium, Blood 4.5 mmol/L (3.5-5.5); Total Protein, Blood 6.6 g/dL (6.4-8.2)
[2023-05-20 14:34] LABS: Mean Platelet Volume 10.9 fL (9.1-12.4); Platelet Count 172 K/mm3 (150-400)
[2023-05-20 17:30] VITALS: BP 121/55
[2023-05-20 19:23] VITALS: BP 131/65
[2023-05-21 03:12] VITALS: BP 111/55
--- NOTE | 2023-05-21 03:50 | NUR ---
SHIFT SUMMARY PATIENT IS ALERT AND ORIENTED. PATIENT HAS HAD NO ACUTE EVENTS THIS SHIFT. VITAL SIGNS REVIEWED. PATIENT HAS COMPLAINED OF PAIN, OF WHICH IS CHRONIC OF NATURE AND MEDICATED PER EMAR. PATIENT HAS NOT COMPLAINED OF SOB, NAUSEA, OR VOMITTING THIS SHIFT. BED IN LOCKED AND LOWEST POSITION. CALL LIGHT IN PLACE. WILL MONITOR UNTIL SHIFT CHANGE.
[2023-05-21 07:44] VITALS: BP 109/53
--- NOTE | 2023-05-21 09:00 | NUR ---
pt laying in bed awake, a/ox4, pleasant and cooperative with care, follows commands well, denies pain, states she feels about the same as when she came in. lungs clear t/o, resp even and unlabored, no cough noted, hrr, murmur noted, no edema noted, ppp+ 1, cap refill <3sec, vs stable, afebrile, iv to right fa, hurt when flushed, will replace, btx4, reports regular bm's, voids without diff via bsc, skin is pink, and very dry, no open areas, maew, hands are very weak, stephany, call light in reach.
[2023-05-21 15:00] VITALS: BP 107/63
--- NOTE | 2023-05-21 18:01 | NUR ---
Pt had an uneventful shift. was having a bit of abd pain this evening, medicated per orders, no acute changes in condition. call light in reach.
[2023-05-21 19:36] VITALS: BP 106/59
[2023-05-22 02:54] VITALS: BP 125/66
--- NOTE | 2023-05-22 04:54 | NUR ---
SHIFT SUMMARY NOC PT A/O X 4. PLEASANT AND COOPERATIVE WITH CARE. NO ACUTE CHANGES TO REPORT. PT HAD C/O OF GENERALIZED PAIN AND WAS MEDICATED PER EMAR. PT HAS HAD 2 BM. USING BSC WITH 1PA FWW. PT RECEIVING MERREM FOR POSSIBLE UTI THAT IS PENDING. IN CONTACT ISOLATION FOR HX OF ESBL IN URINE IN JANUARY. PT IS CURRENTLY RESTING WITH BED IN LOWEST POSITION, AND CALL LIGHT WITHIN REACH.
[2023-05-22 06:44] LABS: Albumin, Blood 3.1 g/dL (3.4-5.0); Anion Gap 3 mmol/L (6-16); Blood Urea Nitrogen 12 mg/dL (8-24); Bun/Creatinine Ratio 20.5 (12.0-20.0); CO2, Blood 30 mmol/L (21-32); Calcium, Blood 8.4 mg/dL (8.5-10.1); Chloride, Blood 108 mmol/L (98-108); Creatinine, Blood 0.59 mg/dL (0.40-1.00); Glomerular Filtration Rate 99 (60-); Glucose, Blood 114 mg/dL (70-99); Phosphorus, Blood 4.1 mg/dL (2.5-4.9); Sodium, Blood 141 mmol/L (136-145)
[2023-05-22 07:25] VITALS: BP 136/64
--- NOTE | 2023-05-22 07:38 | NUR ---
ASSUMED CARE: PT RESTING QUIETLY IN BED. CONCRETE TESTER AT BEDSIDE. NO ACUTE NEEDS OR CONCERNS AT THIS TIME.
[2023-05-22 08:14] LABS: BASOPHILS ABSOLUTE AUTO 0.02 K/mm3 (0.00-0.23); BASOPHILS PERCENT AUTO 0 % (0-2); EOSINOPHILS ABSOLUTE AUTO 0.31 K/mm3 (0.00-0.68); EOSINOPHILS PERCENT AUTO 5 % (0-6); Hematocrit 38.1 % (33.0-51.0); Hemoglobin 11.8 g/dL (11.5-16.0); IMMATURE GRAN ABSOLUTE AUTO 0.02 K/mm3 (0.00-0.10); IMMATURE GRAN PERCENT AUTO 0 % (0-1); LYMPHOCYTES ABSOLUTE AUTO 1.17 K/mm3 (0.84-5.20); LYMPHOCYTES PERCENT AUTO 18 % (21-46); MONOCYTES ABSOLUTE AUTO 1.06 K/mm3 (0.16-1.47); MONOCYTES PERCENT AUTO 16 % (4-13); Mean Corpuscular HGB 23.7 pg (26.0-34.0); Mean Corpuscular Volume 77 fL (80-100); Mean Platelet Volume 10.5 fL (9.1-12.4); NEUTROPHILS ABSOLUTE AUTO 4.06 K/mm3 (1.96-9.15); NEUTROPHILS PERCENT AUTO 61 % (41-73); Platelet Count 206 K/mm3 (150-400); RDW Coefficient Variation 16.3 % (11.7-14.2); RDW Standard Deviation 44.5 fL (35.1-46.3); Red Blood Cell Count 4.97 M/mm3 (3.80-5.20); White Blood Cell Count 6.64 K/mm3 (4.00-11.30)
[2023-05-22 16:00] VITALS: BP 129/64
--- NOTE | 2023-05-22 18:05 | NUR ---
SHIFT SUMMARY: PT HAS BEEN UP IN CHAIR TODAY. VISITORS OFF AND ON T/O DAY. PLAN IS FOR POWER GLIDE PLACEMENT TOMORROW FOR IV ABX AT FACILITY. MEDICATED X1 FOR PAIN. DENIES FURTHER NEEDS OR CONCERNS AT THIS TIME.
[2023-05-22 19:42] VITALS: BP 122/56
[2023-05-23 03:22] VITALS: BP 123/61
--- NOTE | 2023-05-23 05:57 | NUR ---
TEVIN MARTINEZ, PT RESTING IN BED AT THIS TIME. PT APPEARS TO BE SLEEPING WELL AND TO BE COMFORTABLE. PT UP SEVERAL TIMES TO VOID, HEALTH OUTREACH WORKER REPAORTED PT HAD SEVERAL INCONT URINES. PT MEDICATED FOR PAIN X 1. CALL LIGHT IN REACH.
[2023-05-23 07:47] VITALS: BP 117/59
[2023-05-23] MEDS ORDERED: MEROPENEM114 IV (11:57)
[2023-05-23] MEDS ORDERED: MICONAZOLE NITRATE TOP (12:01)
[2023-05-23 13:11] LABS: Influenza A, PCR NEGATIVE (NEGATIVE); Influenza B, PCR NEGATIVE (NEGATIVE); Resp Syncytial Virus, PCR NEGATIVE (NEGATIVE); SARS-Cov-2 (COVID-19) PCR, MMC NEGATIVE (NEGATIVE)
--- NOTE | 2023-05-23 15:59 | NUR ---
PT DISCHARGED TO [facility] VIA GURNY. PT AMBULATED TO SIT ON GURNY. WILL BE GOING TO FACILITY FOR ABX TX OF UTI. BELONGINGS SENT. NICHOLAS CALLED FOR REPORT AT 1530.
== END 2023-05-23 14:50 | DRG 690 ==
LOC: ER 13:16 → MEDS 16:41
PROVIDERS: Physician Assistant; ADMIT Family Medicine
DX: N39.0 Urinary tract infection, site not specified (principal); M54.9 Dorsalgia, unspecified; G89.29 Other chronic pain; E03.9 Hypothyroidism, unspecified; F32.A Depression, unspecified; K21.9 Gastro-esophageal reflux disease without esophagitis; E78.5 Hyperlipidemia, unspecified; B96.1 Klebsiella pneumoniae [K. pneumoniae] as the cause of diseases classified elsewhere; J45.909 Unspecified asthma, uncomplicated; R32 Unspecified urinary incontinence; B37.9 Candidiasis, unspecified; F41.9 Anxiety disorder, unspecified; N20.0 Calculus of kidney; Z90.49 Acquired absence of other specified parts of digestive tract; Z90.89 Acquired absence of other organs; Z88.5 Allergy status to narcotic agent; Z88.8 Allergy status to other drugs, medicaments and biological substances; Z91.040 Latex allergy status; Z79.52 Long term (current) use of systemic steroids; Z79.899 Other long term (current) drug therapy; Z79.891 Long term (current) use of opiate analgesic; Z79.890 Hormone replacement therapy; Z87.81 Personal history of (healed) traumatic fracture; Z91.81 History of falling; Z89.021 Acquired absence of right finger(s); Z87.891 Personal history of nicotine dependence
CPT/HCPCS: 0241U; 36415; 74176; 80053; 80069; 85025; 87086; 94760; 97110; 97116; 97161; 97165; 97530; 97535; 99284; A9270; J1650; J2185; J7050; J7517

== ENCOUNTER 2023-06-07 00:20 | Inpatient (IN) | payer MEDICARE, BC ==
[~2023-06-07] VITALS: Ht 157.5 cm; Wt 76.5 kg
[~2023-06-07 00:20] MED LIST changes: +MEROPENEM114 IV; +MICONAZOLE NITRATE TOP
[2023-06-07 01:12] LABS: BASOPHILS ABSOLUTE AUTO 0.04 K/mm3 (0.00-0.23); BASOPHILS PERCENT AUTO 0 % (0-2); EOSINOPHILS ABSOLUTE AUTO 0.54 K/mm3 (0.00-0.68); EOSINOPHILS PERCENT AUTO 5 % (0-6); Hematocrit 37.6 % (33.0-51.0); Hemoglobin 11.6 g/dL (11.5-16.0); IMMATURE GRAN ABSOLUTE AUTO 0.05 K/mm3 (0.00-0.10); IMMATURE GRAN PERCENT AUTO 1 % (0-1); LYMPHOCYTES ABSOLUTE AUTO 1.14 K/mm3 (0.84-5.20); LYMPHOCYTES PERCENT AUTO 11 % (21-46); MONOCYTES ABSOLUTE AUTO 1.54 K/mm3 (0.16-1.47); MONOCYTES PERCENT AUTO 14 % (4-13); Mean Corpuscular HGB 23.7 pg (26.0-34.0); Mean Corpuscular HGB Conc 30.9 g/dL (31.5-36.5); Mean Corpuscular Volume 77 fL (80-100); Mean Platelet Volume 10.1 fL (9.1-12.4); NEUTROPHILS ABSOLUTE AUTO 7.53 K/mm3 (1.96-9.15); NEUTROPHILS PERCENT AUTO 69 % (41-73); Platelet Count 212 K/mm3 (150-400); RDW Coefficient Variation 15.9 % (11.7-14.2); RDW Standard Deviation 43.6 fL (35.1-46.3); Red Blood Cell Count 4.89 M/mm3 (3.80-5.20); White Blood Cell Count 10.84 K/mm3 (4.00-11.30)
[2023-06-07 01:38] LABS: Albumin, Blood 2.8 g/dL (3.4-5.0); Albumin/Globulin Ratio 0.9 (0.8-1.8); Bilirubin, Total 0.4 mg/dL (0.1-1.0); Bun/Creatinine Ratio 46.4 (12.0-20.0); Calcium, Blood 8.1 mg/dL (8.5-10.1); Creatinine, Blood 0.39 mg/dL (0.40-1.00); Globulin, Blood 3.2 g/dL (2.2-4.0)
[2023-06-07 01:54] LABS: Source, Urine Clean Catch
[2023-06-07 01:56] LABS: Bilirubin, Urine Neg (Neg); Blood, Urine 5+ (Neg); Glucose Qualitative, Urine Neg (Neg); Ketones, Urine Neg (Neg); Leukocyte Esterase, Urine 3+ (Neg); Nitrite, Urine Pos (Neg); Protein, Urine 3+ (Neg); Specific Gravity, Urine 1.015 (1.003-1.022); Urobilinogen, Urine NORM (Normal)
[2023-06-07 02:04] LABS: Appearance, Urine Turbid (Clear); Color, Urine Yellow (P-Yellow)
[2023-06-07 02:05] LABS: Bacteria Many /hpf; Red Blood Cells, Urine 50-100 /hpf (0-2); Squamous Epithelial Cells Few /hpf (Few); White Blood Cells, Urine TNTC /hpf (0-5)
[2023-06-07 03:58] LABS: BASOPHILS ABSOLUTE AUTO 0.04 K/mm3 (0.00-0.23); BASOPHILS PERCENT AUTO 0 % (0-2); EOSINOPHILS PERCENT AUTO 5 % (0-6); Hematocrit 35.2 % (33.0-51.0); Hemoglobin 10.9 g/dL (11.5-16.0); IMMATURE GRAN ABSOLUTE AUTO 0.03 K/mm3 (0.00-0.10); IMMATURE GRAN PERCENT AUTO 0 % (0-1); LYMPHOCYTES ABSOLUTE AUTO 1.21 K/mm3 (0.84-5.20); LYMPHOCYTES PERCENT AUTO 12 % (21-46); MONOCYTES ABSOLUTE AUTO 1.46 K/mm3 (0.16-1.47); MONOCYTES PERCENT AUTO 14 % (4-13); Mean Corpuscular HGB 23.9 pg (26.0-34.0); Mean Corpuscular Volume 77 fL (80-100); Mean Platelet Volume 10.7 fL (9.1-12.4); NEUTROPHILS ABSOLUTE AUTO 7.08 K/mm3 (1.96-9.15); NEUTROPHILS PERCENT AUTO 69 % (41-73); Platelet Count 202 K/mm3 (150-400); RDW Coefficient Variation 16.1 % (11.7-14.2); RDW Standard Deviation 44.6 fL (35.1-46.3); Red Blood Cell Count 4.57 M/mm3 (3.80-5.20); White Blood Cell Count 10.32 K/mm3 (4.00-11.30)
--- NOTE | 2023-06-07 04:05 | NUR ---
NEW ADMIT. PATIENT ADMITTED TO ROOM 306 FROM THE ER. PATIENT TRANSFERED TO FLOOR VIA GURNEY AND ONE PERSON ASSIST. PATIENT TRANSFERED FROM GURNEY TO HOSPITAL BED WITH SLIDE SHEET AND 3 PERSON ASSIST. SHIFT SUMMARY. PATIENT IS A/O X4. RA. PATIENT AMBULATORY WITH FWW AT BASELINE. PATIENT IS ABLE TO MAKE HER NEEDS KNOWN. PATIENT REPORTS SHE LIVES WITH SISTER AND THAT SISTER HELPS TO CARE FOR HER AND MANAGES HER MEDICATIONS. PATIENT IS ABLE TO TAKE PILLS WHOLE WITH WATER WITH OUT DIFFICULTY. TELE IS ON AND LEADS IN PLACE-SINUS RHYTHM AT 76. PATIENT IS USING THE BED PAD AND ATTENDS FOR INCONTINENCE AT THIS TIME. PATIENT HAS NS RUNNING AT 75MLS/HR PER ORDERS. BED IS LOCKED IN THE LOWEST POSITION WITH CALL LIGHT IN REACH.
[2023-06-07 04:14] LABS: International Normalized Ratio 0.97; Prothrombin Time Results 10.2 Sec (9.7-11.5)
[2023-06-07 04:20] LABS: Albumin, Blood 2.7 g/dL (3.4-5.0); Albumin/Globulin Ratio 0.9 (0.8-1.8); Bilirubin, Total 0.4 mg/dL (0.1-1.0); Bun/Creatinine Ratio 36.5 (12.0-20.0); Calcium, Blood 8.1 mg/dL (8.5-10.1); Creatinine, Blood 0.47 mg/dL (0.40-1.00); Potassium, Blood 4.1 mmol/L (3.5-5.5); Total Protein, Blood 5.7 g/dL (6.4-8.2)
[2023-06-07 07:43] VITALS: BP 126/61
[2023-06-07 14:30] VITALS: BP 119/59
--- NOTE | 2023-06-07 16:27 | NUR ---
PATIENT WITH PAIN TODAY IN ABDOMEN / RELIVED TO 6/10 BREIFLY FOR AN HOUR OR -TWO AND THEN INCREASESE TO 7-8 PAIN SHARP AND ACHY WITH SOME NUMBNESS AROUND THE MIDDLE. DR ACOSTA NOTIFIED AND INCREASED FREQUENCY OF FENTANYL. RN TO RN HANDOFF GIVEN AT 1625
--- NOTE | 2023-06-07 18:20 | NUR ---
SHIFT SUMMARY- THIS RN ASSUMED CARE OF PT AROUND 1630. PT ALERT AND ORIENTED SITTING UP IN BED, SHE STATES 7/10 PAIN WITH A GOAL OF 5/10. SPOKE TO DR ACOSTA ABOUT NSAIDS, OR AN ORAL ALTERNATIVE TO THE IV FENTANYL THAT DOES SEEM TO WORK BUT DOES NOT LAST LONG ENOUGH. NEW ORDER FOR TRAMADOL RECIEVED. PT RECIEVED FIRST DOSE AT 1815. ORDER IS FOR Q6. PT IN BED, CALL LIGHT IN REACH MEDS WHOLE IN PUDDING. NO CURRENT S&S OF DISTRESS NOTED.
[2023-06-07 19:23] VITALS: BP 125/60
[2023-06-08 02:52] VITALS: BP 108/52
--- NOTE | 2023-06-08 04:41 | NUR ---
SHIFT SUMMARY. PATIENT SBA W/FWW TO THE BATHROOM. PATIENT C/O PAIN IN THE ABDOMEN-MEDICATED PER EMAR; PATIENT REPORTS THAT TORADOL MAKES HER FEEL OFF. PATIENT IS ABLE TO MAKE HER NEEDS KNOWN AND CALLS APPROPRIATELY. TELE IS ON W/ LEADS IN PLACE. PATIENT UP MOST OF NIGHT. TAKES PILLS WHOLE IN PUDDING OR YOGURT. PATIENT IS ABLE TO MAKE HER NEEDS KNOWN AND CALLS APPROPRIATELY.
--- NOTE | 2023-06-08 06:05 | NUR ---
SHIFT SUMMARY. NO ACUTE CHANGES. PATIENT SBA W/FWW. PATIENT C/O PAIN IN THE ABDOMEN-MEDICATED PER EMAR. PATIENT IS ABLE TO MAKE HER NEEDS KNOWN AND CALLS APPROPRIATELY. TELE IS ON W/LEAD IN PLACE. PATIENT UP MOST OF NIGHT. PATIENT TAKES PILLS WHOLE IN PUDDING OR YOGURT.
[2023-06-08 07:31] VITALS: BP 117/61
[2023-06-08 15:20] VITALS: BP 131/59
--- NOTE | 2023-06-08 18:37 | NUR ---
SHIFT SUMMARY; WORKED WITH PT TODAY. PATIENT IS INDEPENDANT TO THE BATHROOM. SHE IS ENCOURAGED TO USE BATHROOM AND CALL LIGHT TO LET STAFF KNOW WHEN SHE NEEDS TO GO TO BATHROOM. PATIENT IS AO X 4 TODAY. USES CALL LIGHT OFTEN. ASKS FOR SNACKS REPEATEDLY THROUGHOUT THE DAY. HER LUNG SOUNDS ARE CLEAR THROUGHOUT. SHE IS PLEASANT AND COOPERATIVE WITH CARE.
[2023-06-08 19:49] VITALS: BP 127/63
--- NOTE | 2023-06-09 07:20 | NUR ---
SHIFT SUMMARY PT LAYING IN BED DURING BEDSIDE REPORT- PT INCONTIENT OF URINE, PT KNOWS WHEN SHE URINATES- ENCOURAGED PT TO GET UP AND CHANGED BRIEF AND GET CLEANED UP ONCE SHE GOES TO DECREASE CHANCE OF BREAKDOWN , PT AGREES, PT HAS DOUBLE J STENT WITH STRING HANGING OUT OF URETHRA- PT TOOK MEDICATIONS IN PUDDING WITHOT PROBLEMS, BED LOW POSITION, CALL LIGHT WITHIN REACH
[2023-06-09 07:39] VITALS: BP 106/47
[2023-06-09 09:41] VITALS: BP 120/53
[2023-06-09 15:53] VITALS: BP 135/72
--- NOTE | 2023-06-09 16:25 | NUR ---
SHIFT SUMMARY MS CISSE IS OX4, C/O GENERALISED CHRONIC PAIN THAT IS HELPED BY TRAMADOL. UP TO BATHRROM WITH FWW AND STAND-BY ASSISTANCE WITH A STEADY GAIT. IV ABX CONTINUE. UP TO BATHROOM, INCONTINENT OF URINE WITH SOME CONTINENT EPISODES. STRINGS FROM STENTS VISUALISED. SR ON TELEMETRY, NO CALLS FROM DIE TRIPPER. BED LOW, CALL LIGHT IN REACH.
[2023-06-09 19:37] VITALS: BP 140/88
[2023-06-10 04:36] VITALS: BP 117/59
--- NOTE | 2023-06-10 05:15 | NUR ---
SUMMARY: PT A/OX4, CALLS APPROPRIATELY TO SPECIFY NEED AN IS PLEASANT AND COOPERATIVE W/CARE. SHE'S UP W/FWW AND SBA TO BATHROOM AND OCC CONTINENT EPISODES. BILAT URETER STENTS ARE IN PLACE PROVIDIING CONSTANT UO AND INCONTINENCE SO FREQ ATTENDS CHANGES ARE REQUIRED. SHE CAN PERFORM THIS ALONG W/KRYSTIN CARE INDEPENDENTLY BUT STAFF PROVIDED POWDER PER EMAR TO GROIN AND SKIN FOLDS FOR REDNESS/RASH FROM MOISTURE. IV ABX BEING RECIEVED AND PRN ULTRAM WAS PROVIDED FOR TOLERABLE RELIEF OF ABDO, FLANK AND BACK PAIN. NO ACUTE CHANGES, VSS/AFEBRILE. PT IS PROBABLE D/C TODAY TO [facility]. WCTM AND REPORT TO DAY RN.
[2023-06-10 07:45] VITALS: BP 136/67
[2023-06-10 17:08] VITALS: BP 127/65
--- NOTE | 2023-06-10 18:40 | NUR ---
SHIFT SUMMARY: PT A/O X 4, ONE ASSIST, PLEASANT AND COOPERATIVE WITH CARE. PT CONTINUES TO HAVE STENTS IN PLACE. CONTINUES TO LEAK URINE. PT TOLERATING ABX TX. PT SISTER MARTY IN TODAY AND WOULD APPRECIATE A CALL FOR AN UPDATE. PHONE NUMBER IS [phone].
[2023-06-10 19:44] VITALS: BP 114/54
[2023-06-11 05:00] VITALS: BP 143/72
[2023-06-11 05:20] LABS: BASOPHILS ABSOLUTE AUTO 0.03 K/mm3 (0.00-0.23); BASOPHILS PERCENT AUTO 0 % (0-2); EOSINOPHILS ABSOLUTE AUTO 0.79 K/mm3 (0.00-0.68); EOSINOPHILS PERCENT AUTO 11 % (0-6); Hematocrit 36.2 % (33.0-51.0); IMMATURE GRAN ABSOLUTE AUTO 0.03 K/mm3 (0.00-0.10); IMMATURE GRAN PERCENT AUTO 0 % (0-1); LYMPHOCYTES ABSOLUTE AUTO 1.39 K/mm3 (0.84-5.20); LYMPHOCYTES PERCENT AUTO 19 % (21-46); MONOCYTES ABSOLUTE AUTO 1.05 K/mm3 (0.16-1.47); MONOCYTES PERCENT AUTO 14 % (4-13); Mean Corpuscular HGB 23.9 pg (26.0-34.0); Mean Corpuscular HGB Conc 30.4 g/dL (31.5-36.5); Mean Corpuscular Volume 79 fL (80-100); Mean Platelet Volume 10.7 fL (9.1-12.4); NEUTROPHILS ABSOLUTE AUTO 4.16 K/mm3 (1.96-9.15); NEUTROPHILS PERCENT AUTO 56 % (41-73); Platelet Count 236 K/mm3 (150-400); RDW Coefficient Variation 15.9 % (11.7-14.2); RDW Standard Deviation 44.5 fL (35.1-46.3); White Blood Cell Count 7.45 K/mm3 (4.00-11.30)
[2023-06-11 05:39] LABS: Albumin, Blood 2.8 g/dL (3.4-5.0); Albumin/Globulin Ratio 0.9 (0.8-1.8); Bilirubin, Total 0.2 mg/dL (0.1-1.0); Bun/Creatinine Ratio 15.5 (12.0-20.0); Creatinine, Blood 0.52 mg/dL (0.40-1.00); Globulin, Blood 3.1 g/dL (2.2-4.0); Potassium, Blood 3.6 mmol/L (3.5-5.5); Total Protein, Blood 5.9 g/dL (6.4-8.2)
--- NOTE | 2023-06-11 06:06 | NUR ---
SUMMARY: PT A/OX4, IS PLEASANT AND COOPERATIVE W/CARE AND CALLS APPROPRIATE TO SPECIFY NEEDS. BILAT URETER STENTS ARE INTACT/DRAINING W/ATTENDS CHANGED PRN FOR CONSTANT UO AND DRAINAGE. CREAMS AND RX'D POWDER APPLIED TO REDDENED KRYSTIN AREA, SKIN FOLDS AND GROIN FOR SBD PREVENTION FROM FREQ MOISTURE. ULTRAM PROVIDED PRN FOR ABDO, FLANK AND BACK PAIN AND IV ABX RECIEVED PER EMAR. NO ACUTE CHANGES, VSS/AFEBRILE. WCTM AND REPORT TO DAY RN.
[2023-06-11 08:03] VITALS: BP 135/71
[2023-06-11 17:10] VITALS: BP 130/74
--- NOTE | 2023-06-11 18:24 | NUR ---
SHIFT SUMMARY: PT A/O X 4, STANDBY ASSIST TO BATHROOM WITH WALKER. PT CONTINUES TO LEAK URINE CONSTANTLY FROM STENTS. APPEARS TO BE CLEAR LIGHT YELLOW. PT DID REPORT AFTER WORKING WITH PT "I FEEL LIKE THE STRINGS GOT TUGGED AND MAYBE SOMETHING CAME OUT." PT GAVE VERBAL PERMISSION TO COMPLETE A VISUAL. NO SIGNS OF ANYTHING OUT OF VAGINA. BLACK STRINGS STILL ATTACHED AND CLEAR YELLOW URINE WAS STILL DRIBLING FROM AREA. PT DENIES PAIN IN THE AREA, NO REDNESS OR SWELLING NOTED TO VAGINA AREA. PT DID NOT HAVE ANY FURTHER COMPLAINTS. PT HAS GOOD ORAL INTAKE OF FOOD AND FLUIDS.
[2023-06-11 19:51] VITALS: BP 126/52
[2023-06-12 04:35] VITALS: BP 137/66
--- NOTE | 2023-06-12 05:01 | NUR ---
SHIFT SUMMARY 67 YR F ADMITTED ON 06/07/23 FOR UTI. FULL CODE. NO ACUTE CHANGES THIS SHIFT. PT STATES THAT SHE IS CONSTANTLY "DRIBBLING" AND SHE HAS HAD SEVERAL LARGE, INCONTINENT EPISODES OF CLEAR, YELLOW URINE. SHE CALLS FOR ASSISTANCE TO THE BEDSIDE COMMODE WHEN SHE CAN. SHE C/O WIDESPREAD PAIN AND WAS MEDICATED PER EMAR. SHE IS PLEASANT AND COOPERATIVE WITH CARE. BEDIN LOW POSITION AND CALL LIGHT IN REACH.
[2023-06-12 05:06] LABS: BASOPHILS ABSOLUTE AUTO 0.03 K/mm3 (0.00-0.23); BASOPHILS PERCENT AUTO 0 % (0-2); EOSINOPHILS ABSOLUTE AUTO 0.78 K/mm3 (0.00-0.68); EOSINOPHILS PERCENT AUTO 11 % (0-6); Hematocrit 35.3 % (33.0-51.0); IMMATURE GRAN ABSOLUTE AUTO 0.02 K/mm3 (0.00-0.10); IMMATURE GRAN PERCENT AUTO 0 % (0-1); LYMPHOCYTES ABSOLUTE AUTO 1.41 K/mm3 (0.84-5.20); LYMPHOCYTES PERCENT AUTO 19 % (21-46); MONOCYTES ABSOLUTE AUTO 0.93 K/mm3 (0.16-1.47); MONOCYTES PERCENT AUTO 13 % (4-13); Mean Corpuscular HGB 24.2 pg (26.0-34.0); Mean Corpuscular HGB Conc 31.2 g/dL (31.5-36.5); Mean Corpuscular Volume 78 fL (80-100); Mean Platelet Volume 10.4 fL (9.1-12.4); NEUTROPHILS ABSOLUTE AUTO 4.08 K/mm3 (1.96-9.15); NEUTROPHILS PERCENT AUTO 56 % (41-73); Platelet Count 247 K/mm3 (150-400); RDW Coefficient Variation 15.6 % (11.7-14.2); RDW Standard Deviation 43.6 fL (35.1-46.3); Red Blood Cell Count 4.55 M/mm3 (3.80-5.20); White Blood Cell Count 7.25 K/mm3 (4.00-11.30)
[2023-06-12 05:33] LABS: Bun/Creatinine Ratio 18.6 (12.0-20.0); Calcium, Blood 8.2 mg/dL (8.5-10.1); Creatinine, Blood 0.48 mg/dL (0.40-1.00); Potassium, Blood 3.9 mmol/L (3.5-5.5)
[2023-06-12 07:35] VITALS: BP 127/68
--- NOTE | 2023-06-12 16:06 | NUR ---
SHIFT SUMMARY PATIENT MEDICATED FOR PAIN X2. PATIENT DENIES NAUSEA AND SHORTNESS OF BREATH. PATIENT SBA WITH FWW. PATIENT A&O X4. PATIENT TAKES MEDICATIONS WHOLE WITH CHOCOLATE PUDDING. PATIENT HAS BLACK STRINGS FROM URETHRA DUE TO URETER STENTS. PATIENT IS EATING AND DRINKING WELL. PATIENT IS PLEASANT AND COOPERATIVE WITH CARE. PATIENT CALLS APPROPRIATELY. PATIENT IN ISOLATION FOR ESBL IN URINE. ISOLATION PRECAUTIONS MAINTAINED. PATIENT EDUCATED ABOUT FIRE SAFETY AND IGNITION RISK.
[2023-06-12 16:42] VITALS: BP 112/66
[2023-06-12 20:15] VITALS: BP 102/70
[2023-06-13 03:06] VITALS: BP 104/70
--- NOTE | 2023-06-13 05:33 | NUR ---
SHIFT SUMMARY 67 YR F ADMITTED ON 06/07/23 FOR UTI. FULL CODE. NO ACUTE CHANGES THIS SHIFT. PT AGREED TO TRY A PUREWIK AND IT IS WORKING WELL FOR HER. PT MEDICATED FOR PAIN PER EMAR AND HAS HAD NO OTHER C/O. SHE IS VERY PLEASANT AND COOPERATIVE. SHE APPEARS TO HAVE SLEPT WELL FOR MOST OF THIS SHIFT. BED IS IN LOW POSITION AND CALL LIGHT IN REACH.
[2023-06-13 05:35] LABS: BASOPHILS ABSOLUTE AUTO 0.03 K/mm3 (0.00-0.23); BASOPHILS PERCENT AUTO 0 % (0-2); EOSINOPHILS ABSOLUTE AUTO 0.76 K/mm3 (0.00-0.68); EOSINOPHILS PERCENT AUTO 11 % (0-6); Hematocrit 37.5 % (33.0-51.0); Hemoglobin 11.5 g/dL (11.5-16.0); IMMATURE GRAN ABSOLUTE AUTO 0.03 K/mm3 (0.00-0.10); IMMATURE GRAN PERCENT AUTO 0 % (0-1); LYMPHOCYTES PERCENT AUTO 18 % (21-46); MONOCYTES PERCENT AUTO 13 % (4-13); Mean Corpuscular HGB 23.9 pg (26.0-34.0); Mean Corpuscular HGB Conc 30.7 g/dL (31.5-36.5); Mean Corpuscular Volume 78 fL (80-100); Mean Platelet Volume 10.6 fL (9.1-12.4); NEUTROPHILS ABSOLUTE AUTO 4.07 K/mm3 (1.96-9.15); NEUTROPHILS PERCENT AUTO 58 % (41-73); Platelet Count 252 K/mm3 (150-400); RDW Coefficient Variation 15.7 % (11.7-14.2); RDW Standard Deviation 43.8 fL (35.1-46.3); Red Blood Cell Count 4.81 M/mm3 (3.80-5.20); White Blood Cell Count 7.09 K/mm3 (4.00-11.30)
[2023-06-13 06:33] LABS: Bun/Creatinine Ratio 16.1 (12.0-20.0); Calcium, Blood 8.6 mg/dL (8.5-10.1); Creatinine, Blood 0.5 mg/dL (0.40-1.00); Potassium, Blood 3.7 mmol/L (3.5-5.5)
[2023-06-13 08:18] VITALS: BP 127/60
--- NOTE | 2023-06-13 09:38 | NUR ---
DR NICHOLE AT BEDSIDE TO REMOVE STENTS.
[2023-06-13 16:19] VITALS: BP 124/71
[2023-06-13 19:44] VITALS: BP 131/66
[2023-06-14 02:53] VITALS: BP 136/64
--- NOTE | 2023-06-14 04:25 | NUR ---
SHIFT SUMMARY SINCE EMMIE URETAL STENTS WERE REMOVED ON DAY SHIFT, PT HAS BEEN AMBULATING TO THE BATHROOM AND HAS HAD NO EPISODES OF INCONTINENCE. SHE CALLS APPROPRIATELY FOR ASSISTANCE. SHE C/O PAIN IN HER BACK, HIPS, AND GROIN AREA AND WAS GIVEN PAIN MEDS PER EMAR. SHE HAS SLEPT OFF AND ON THROUGHOUT THE NIGHT. SHE IS PLEASANT AND COOPERATIVE WITH CARE. BED IN LOW POSITION AND CALL LIGHT IN REACH.
[2023-06-14 06:17] LABS: BASOPHILS ABSOLUTE AUTO 0.03 K/mm3 (0.00-0.23); BASOPHILS PERCENT AUTO 0 % (0-2); EOSINOPHILS ABSOLUTE AUTO 0.66 K/mm3 (0.00-0.68); EOSINOPHILS PERCENT AUTO 10 % (0-6); Hematocrit 35.8 % (33.0-51.0); Hemoglobin 11.2 g/dL (11.5-16.0); IMMATURE GRAN ABSOLUTE AUTO 0.03 K/mm3 (0.00-0.10); IMMATURE GRAN PERCENT AUTO 0 % (0-1); LYMPHOCYTES ABSOLUTE AUTO 1.23 K/mm3 (0.84-5.20); LYMPHOCYTES PERCENT AUTO 18 % (21-46); MONOCYTES PERCENT AUTO 13 % (4-13); Mean Corpuscular HGB 24.3 pg (26.0-34.0); Mean Corpuscular HGB Conc 31.3 g/dL (31.5-36.5); Mean Corpuscular Volume 78 fL (80-100); Mean Platelet Volume 10.2 fL (9.1-12.4); NEUTROPHILS ABSOLUTE AUTO 4.12 K/mm3 (1.96-9.15); NEUTROPHILS PERCENT AUTO 59 % (41-73); Platelet Count 241 K/mm3 (150-400); RDW Coefficient Variation 15.5 % (11.7-14.2); RDW Standard Deviation 43.1 fL (35.1-46.3); Red Blood Cell Count 4.61 M/mm3 (3.80-5.20); White Blood Cell Count 6.97 K/mm3 (4.00-11.30)
[2023-06-14 06:51] LABS: Albumin, Blood 2.8 g/dL (3.4-5.0); Albumin/Globulin Ratio 0.9 (0.8-1.8); Bilirubin, Total 0.2 mg/dL (0.1-1.0); Bun/Creatinine Ratio 15.2 (12.0-20.0); Calcium, Blood 8.5 mg/dL (8.5-10.1); Creatinine, Blood 0.46 mg/dL (0.40-1.00); Globulin, Blood 3.2 g/dL (2.2-4.0); Potassium, Blood 4.1 mmol/L (3.5-5.5)
[2023-06-14 07:25] VITALS: BP 136/70
--- NOTE | 2023-06-14 16:32 | NUR ---
DAYSHIFT SUMMARY Patient alert & oriented x3, plesant and cooperative with cares. Patient OOB for all meals. Worked with PT today. Tele in place no cardiac events this shift. Patient reports ABD pain d/t constipation. IV ABX adminsitred. VSS. Will continue plan of care.
[2023-06-14 19:38] VITALS: BP 124/71
[2023-06-15 03:21] VITALS: BP 123/62
--- NOTE | 2023-06-15 04:40 | NUR ---
NO ACUTE CHANGES. PATIENT A/O X3, PLEASANT, COOPERATIVE WITH CARE, AND CALLS APPROPRIATELY. PATIENT SBA WITH FWW. TELE IS ON W/LEADS IN PLACE. PATIENT TAKES PILLS WHOLE IN PUDDING. BED IS LCOKED IN THE LOWEST POSITION WITH CALL LIGHT IN REACH.
[2023-06-15 05:22] LABS: BASOPHILS ABSOLUTE AUTO 0.03 K/mm3 (0.00-0.23); BASOPHILS PERCENT AUTO 0 % (0-2); EOSINOPHILS ABSOLUTE AUTO 0.63 K/mm3 (0.00-0.68); EOSINOPHILS PERCENT AUTO 8 % (0-6); Hematocrit 34.7 % (33.0-51.0); Hemoglobin 10.7 g/dL (11.5-16.0); IMMATURE GRAN ABSOLUTE AUTO 0.03 K/mm3 (0.00-0.10); IMMATURE GRAN PERCENT AUTO 0 % (0-1); LYMPHOCYTES ABSOLUTE AUTO 1.44 K/mm3 (0.84-5.20); LYMPHOCYTES PERCENT AUTO 19 % (21-46); MONOCYTES ABSOLUTE AUTO 1.17 K/mm3 (0.16-1.47); MONOCYTES PERCENT AUTO 16 % (4-13); Mean Corpuscular HGB 23.9 pg (26.0-34.0); Mean Corpuscular HGB Conc 30.8 g/dL (31.5-36.5); Mean Corpuscular Volume 78 fL (80-100); NEUTROPHILS ABSOLUTE AUTO 4.22 K/mm3 (1.96-9.15); NEUTROPHILS PERCENT AUTO 56 % (41-73); Platelet Count 236 K/mm3 (150-400); RDW Coefficient Variation 15.5 % (11.7-14.2); RDW Standard Deviation 43.5 fL (35.1-46.3); Red Blood Cell Count 4.47 M/mm3 (3.80-5.20); White Blood Cell Count 7.52 K/mm3 (4.00-11.30)
[2023-06-15 05:43] LABS: Calcium, Blood 8.6 mg/dL (8.5-10.1); Creatinine, Blood 0.5 mg/dL (0.40-1.00); Potassium, Blood 4.1 mmol/L (3.5-5.5)
[2023-06-15 08:29] VITALS: BP 128/65
[2023-06-15 15:11] VITALS: BP 130/60
--- NOTE | 2023-06-15 18:00 | NUR ---
SHIFT SUMMARY PT AOX4, SBA WITH FWW TO THE BR. SHE CALLS WELL AND MAKES HER NEEDS KNOWN. MEDICATED FOR ACID REFULX PER THE EMAR THIS SHIFT. NO OTHER COMPLAINTS. CALL LIGHT WITHIN REACH, BED IN THE LOWEST POSITION. WILL REPORT TO ONCOMING NURSE.
[2023-06-15 19:40] VITALS: BP 131/81
[2023-06-16 02:40] VITALS: BP 128/64
--- NOTE | 2023-06-16 04:11 | NUR ---
SHIFT SUMMARY. NO ACUTE CHANGES. PATIENT IS AO X4, SBA W/FWW, CALLS APPROPRIATELY, AND IS ABLE TO MAKE HER NEEDS KNOWN. PATIENT TAKES PILLS WHOLE IN PUDDING OR YOGURT. PATIENT C/O PAIN-MEDICATED PER EMAR X1. TELE IS ON WITH LEADS IN PLACE NO CARDIAC EVENTS THIS SHIFT. BED IS LOCKED IN THE LOWEST POSITION WITH CALL LIGHT IN REACH.
[2023-06-16 05:34] LABS: BASOPHILS ABSOLUTE AUTO 0.04 K/mm3 (0.00-0.23); BASOPHILS PERCENT AUTO 1 % (0-2); EOSINOPHILS ABSOLUTE AUTO 0.64 K/mm3 (0.00-0.68); EOSINOPHILS PERCENT AUTO 7 % (0-6); Hematocrit 37.5 % (33.0-51.0); Hemoglobin 11.3 g/dL (11.5-16.0); IMMATURE GRAN ABSOLUTE AUTO 0.04 K/mm3 (0.00-0.10); IMMATURE GRAN PERCENT AUTO 1 % (0-1); LYMPHOCYTES ABSOLUTE AUTO 1.44 K/mm3 (0.84-5.20); LYMPHOCYTES PERCENT AUTO 17 % (21-46); MONOCYTES ABSOLUTE AUTO 1.25 K/mm3 (0.16-1.47); MONOCYTES PERCENT AUTO 14 % (4-13); Mean Corpuscular HGB 23.3 pg (26.0-34.0); Mean Corpuscular HGB Conc 30.1 g/dL (31.5-36.5); Mean Corpuscular Volume 78 fL (80-100); NEUTROPHILS ABSOLUTE AUTO 5.29 K/mm3 (1.96-9.15); NEUTROPHILS PERCENT AUTO 61 % (41-73); Platelet Count 241 K/mm3 (150-400); RDW Coefficient Variation 15.9 % (11.7-14.2); Red Blood Cell Count 4.84 M/mm3 (3.80-5.20)
[2023-06-16 05:58] LABS: Bun/Creatinine Ratio 15.7 (12.0-20.0); Calcium, Blood 8.7 mg/dL (8.5-10.1); Creatinine, Blood 0.51 mg/dL (0.40-1.00); Potassium, Blood 4.1 mmol/L (3.5-5.5)
[2023-06-16 08:41] VITALS: BP 123/63
[2023-06-16 12:34] LABS: Source, Urine Straight Cath
[2023-06-16 12:38] LABS: Appearance, Urine Clear (Clear); Bilirubin, Urine Neg (Neg); Blood, Urine Neg (Neg); Color, Urine Yellow (P-Yellow); Glucose Qualitative, Urine Neg (Neg); Ketones, Urine Neg (Neg); Leukocyte Esterase, Urine Neg (Neg); Nitrite, Urine Neg (Neg); Protein, Urine Neg (Neg); Urobilinogen, Urine NORM (Normal)
[2023-06-16 16:22] VITALS: BP 116/62
--- NOTE | 2023-06-16 18:24 | NUR ---
SHIFT SUMMARY PT AOX4, 1 ASSIST FWW TO THE BR/BSC. PT SLEPT MOST OF THE DAY, C/O ABD PAIN. PROVIDER NOTIFIED AND MEDICATED PER THE EMAR. ALSO MEDICATED FOR ACID REFLUX PER THE EMAR. POTENTIAL DC TOMORROW. CALL LIGHT WITHIN REACH, BED IN THE LOWEST POSITION. WILL REPORT TO ONCOMING NURSE.
[2023-06-16 19:53] VITALS: BP 117/62
[2023-06-17 05:19] VITALS: BP 132/74
[2023-06-17 05:53] LABS: BASOPHILS ABSOLUTE AUTO 0.02 K/mm3 (0.00-0.23); BASOPHILS PERCENT AUTO 0 % (0-2); EOSINOPHILS ABSOLUTE AUTO 0.63 K/mm3 (0.00-0.68); EOSINOPHILS PERCENT AUTO 7 % (0-6); Hematocrit 37.5 % (33.0-51.0); Hemoglobin 11.7 g/dL (11.5-16.0); IMMATURE GRAN ABSOLUTE AUTO 0.04 K/mm3 (0.00-0.10); IMMATURE GRAN PERCENT AUTO 0 % (0-1); LYMPHOCYTES ABSOLUTE AUTO 1.66 K/mm3 (0.84-5.20); LYMPHOCYTES PERCENT AUTO 18 % (21-46); MONOCYTES ABSOLUTE AUTO 1.46 K/mm3 (0.16-1.47); MONOCYTES PERCENT AUTO 16 % (4-13); Mean Corpuscular HGB 24.2 pg (26.0-34.0); Mean Corpuscular HGB Conc 31.2 g/dL (31.5-36.5); Mean Corpuscular Volume 78 fL (80-100); Mean Platelet Volume 10.4 fL (9.1-12.4); NEUTROPHILS ABSOLUTE AUTO 5.51 K/mm3 (1.96-9.15); NEUTROPHILS PERCENT AUTO 59 % (41-73); Platelet Count 260 K/mm3 (150-400); RDW Coefficient Variation 15.9 % (11.7-14.2); RDW Standard Deviation 43.9 fL (35.1-46.3); Red Blood Cell Count 4.84 M/mm3 (3.80-5.20); White Blood Cell Count 9.32 K/mm3 (4.00-11.30)
--- NOTE | 2023-06-17 06:11 | NUR ---
SHIFT SUMMARY. PATIENT IS A/O X4. PATIENT IS ABLE TO MAKE HER NEEDS KNOWN AND CALLS APPROPRIATELY. PATIENT C/O ABDOMINAL PAIN-MEDICATED PER EMAR. PATIENT C/O HEARTBURN-MEDICATED PER EMAR. PATIENT UP TO BATHROOM/BSC WITH 1 PERSON ASSIST AND FWW. PATIENT REPOSITIONED SELF IN BED AND ASSISTED WITH MOVING UP IN BED. TELE IS ON W/ LEADS IN PLACE RUNNNING SR IN THE 90'S. BED IS LOCKED IN THE LOWEST POSITION WITH CALL LIGHT IN REACH.
[2023-06-17 06:17] LABS: Albumin/Globulin Ratio 0.9 (0.8-1.8); Bilirubin, Total 0.3 mg/dL (0.1-1.0); Bun/Creatinine Ratio 19.3 (12.0-20.0); Calcium, Blood 9.2 mg/dL (8.5-10.1); Creatinine, Blood 0.47 mg/dL (0.40-1.00); Globulin, Blood 3.2 g/dL (2.2-4.0); Potassium, Blood 4.3 mmol/L (3.5-5.5); Total Protein, Blood 6.2 g/dL (6.4-8.2)
[2023-06-17 07:50] VITALS: BP 109/62
--- NOTE | 2023-06-17 17:45 | NUR ---
SHIFT SUMMARY PT AOX4, 1 ASSIST FWW TO THE BR. PT MEDICATED FOR PAIN THIS SHIFT PER THE EMAR. CT COMPLETED THIS SHIFT. ALSO, MEDICATED FOR ACID REFLUX PER THE EMAR. OTHER THAN THAT, SHE HAS HAD NO COMPLAINTS. BED IN THE LOWEST POSITION, CALL LIGHT WITHIN REACH. WILL REPORT TO ONCOMING NURSE.
[2023-06-17 19:43] VITALS: BP 125/68
[2023-06-18 03:02] VITALS: BP 130/60
--- NOTE | 2023-06-18 03:37 | NUR ---
SHIFT SUMMARY 67 YR F ADMITTED ON 06/07/23 FOR UTI DUE TO ESBL. FULL CODE. NO ACUTE CHANGES THIS SHIFT. PT C/O BACK PAIN AND HEARTBURN AND WAS MEDICATED PER EMAR. CALLS APPROPRIATELY FOR ASSISTANCE TO BATHROOM AND IS STEADY ON HER FEET. SHE IS PLEASANT AND COOPERATIVE WITH CARE.
[2023-06-18 05:16] LABS: BASOPHILS ABSOLUTE AUTO 0.04 K/mm3 (0.00-0.23); BASOPHILS PERCENT AUTO 0 % (0-2); EOSINOPHILS ABSOLUTE AUTO 0.68 K/mm3 (0.00-0.68); EOSINOPHILS PERCENT AUTO 7 % (0-6); Hematocrit 37.5 % (33.0-51.0); Hemoglobin 11.6 g/dL (11.5-16.0); IMMATURE GRAN ABSOLUTE AUTO 0.04 K/mm3 (0.00-0.10); IMMATURE GRAN PERCENT AUTO 0 % (0-1); LYMPHOCYTES ABSOLUTE AUTO 1.62 K/mm3 (0.84-5.20); LYMPHOCYTES PERCENT AUTO 18 % (21-46); MONOCYTES ABSOLUTE AUTO 1.31 K/mm3 (0.16-1.47); MONOCYTES PERCENT AUTO 14 % (4-13); Mean Corpuscular HGB 23.9 pg (26.0-34.0); Mean Corpuscular HGB Conc 30.9 g/dL (31.5-36.5); Mean Corpuscular Volume 77 fL (80-100); Mean Platelet Volume 10.5 fL (9.1-12.4); NEUTROPHILS ABSOLUTE AUTO 5.53 K/mm3 (1.96-9.15); NEUTROPHILS PERCENT AUTO 60 % (41-73); Platelet Count 249 K/mm3 (150-400); RDW Coefficient Variation 15.9 % (11.7-14.2); RDW Standard Deviation 43.7 fL (35.1-46.3); Red Blood Cell Count 4.85 M/mm3 (3.80-5.20); White Blood Cell Count 9.22 K/mm3 (4.00-11.30)
[2023-06-18 05:52] LABS: Bilirubin, Total 0.4 mg/dL (0.1-1.0); Bun/Creatinine Ratio 17.5 (12.0-20.0); Calcium, Blood 8.6 mg/dL (8.5-10.1); Creatinine, Blood 0.57 mg/dL (0.40-1.00); Potassium, Blood 4.3 mmol/L (3.5-5.5)
[2023-06-18 08:00] VITALS: BP 120/71
[2023-06-18] MEDS ORDERED: BISA10S PR (08:55)
--- NOTE | 2023-06-18 12:34 | NUR ---
DISCUSSED DISCHARGE INSTRUCTIONS WITH PT AND HER SISTER. SISTER STATES THAT PT'S HOME DOSE OF CELLCEPT IS 1000 MG AND VOICED FRUSTRATION THAT THE DOSE HAD NOT BEEN CHANGED TO PT'S HOME DOSE DESPITE HER REQUESTS. SHE DID STATE THAT PT HAS AN ACTIVE PRESCRIPTION AT HOME FOR THE CELLCEPT AND DOES NOT NEED A NEW PRESCRIPTION. SHE ALSO STATED THAT PT HAS AN APPOINTMENT WITH THE HRIS MANAGER THIS SATURDAY AND WILL DISCUSS WITH THAT PROVIDER. PT'S SISTER ALSO REQUESTED PT'S CT SCANS FROM THIS VISIT. CALLED IMAGING WHO PROVIDED A COPY ALONG WITH INSTRUCTIONS FOR PT TO STOP AT IMAGING DEPARTMENT AND SIGN FOR DISC. PT AND SISTER VERBALIZED UNDERSTANDING OF DISCHARGE INSTRUCTIONS, WRITTEN COPY PROVIDED. IV REMOVED, CATHETER INTACT. ALL PERSONAL BELONGINGS SENT HOME WITH PT. PT TAKEN OUT TO HER SISTER'S PERSONAL VEHICLE VIA WHEELCHAIR.
== END 2023-06-18 12:10 | disposition home or self-care (01) | DRG 699 ==
LOC: ER 00:20 → MEDS 03:35 → ENPENDDIS 06-18 10:36 → MEDS 06-18 12:10
PROVIDERS: Emergency Medicine; Internal Medicine; ADMIT Internal Medicine
PROC: 0TP9XDZ Removal of Intraluminal Device from Ureter, External Approach (ICD-10-PCS; principal; 2023-06-13)
DX: T83.592A Infection and inflammatory reaction due to indwelling ureteral stent, initial encounter (principal); N13.6 Pyonephrosis; Z16.12 Extended spectrum beta lactamase (ESBL) resistance; B96.20 Unspecified Escherichia coli [E. coli] as the cause of diseases classified elsewhere; K59.00 Constipation, unspecified; F41.9 Anxiety disorder, unspecified; F32.A Depression, unspecified; E78.5 Hyperlipidemia, unspecified; K21.9 Gastro-esophageal reflux disease without esophagitis; G89.4 Chronic pain syndrome; J45.909 Unspecified asthma, uncomplicated; E03.9 Hypothyroidism, unspecified; Z88.5 Allergy status to narcotic agent; Z91.040 Latex allergy status; Z88.8 Allergy status to other drugs, medicaments and biological substances; Z79.890 Hormone replacement therapy; Z87.891 Personal history of nicotine dependence
CPT/HCPCS: 36415; 74018; 74177; 80048; 80053; 81001; 81003; 83605; 83880; 85025; 85610; 87040; 87077; 87086; 87186; 96361; 96365-59; 96375; 97110; 97116; 97161; 97165; 97530; 97535; 99285-25; A9270; J1650; J1885; J2185; J3010; J7030; J7050; J7517; Q9967

== ENCOUNTER 2023-06-28 15:52 | Inpatient (IN) | payer MEDICARE, BC ==
[~2023-06-28] VITALS: Ht 157.5 cm; Wt 75.2 kg
[~2023-06-28 15:52] MED LIST changes: -Diflucan100 MG PO; -MAGCIT300 PO; -ONDA4 PO
[2023-06-28 17:27] LABS: Source, Urine Clean Catch
[2023-06-28 17:40] LABS: Appearance, Urine Hazy (Clear); Bilirubin, Urine Neg (Neg); Blood, Urine 1+ (Neg); Glucose Qualitative, Urine Neg (Neg); Ketones, Urine Neg (Neg); Leukocyte Esterase, Urine 3+ (Neg); Nitrite, Urine Pos (Neg); Protein, Urine 1+ (Neg); Urobilinogen, Urine NORM (Normal)
[2023-06-28 17:47] LABS: Color, Urine Pale Yellow (P-Yellow)
[2023-06-28 17:48] LABS: Bacteria Many /hpf; Squamous Epithelial Cells Few /hpf (Few); White Blood Cells, Urine 50-100 /hpf (0-5)
[2023-06-28 17:55] LABS: BASOPHILS ABSOLUTE AUTO 0.02 K/mm3 (0.00-0.23); BASOPHILS PERCENT AUTO 0 % (0-2); EOSINOPHILS ABSOLUTE AUTO 0.41 K/mm3 (0.00-0.68); EOSINOPHILS PERCENT AUTO 6 % (0-6); Hematocrit 37.2 % (33.0-51.0); Hemoglobin 11.6 g/dL (11.5-16.0); IMMATURE GRAN ABSOLUTE AUTO 0.02 K/mm3 (0.00-0.10); IMMATURE GRAN PERCENT AUTO 0 % (0-1); LYMPHOCYTES ABSOLUTE AUTO 0.99 K/mm3 (0.84-5.20); LYMPHOCYTES PERCENT AUTO 15 % (21-46); MONOCYTES ABSOLUTE AUTO 0.67 K/mm3 (0.16-1.47); MONOCYTES PERCENT AUTO 10 % (4-13); Mean Corpuscular HGB 24.2 pg (26.0-34.0); Mean Corpuscular HGB Conc 31.2 g/dL (31.5-36.5); Mean Corpuscular Volume 78 fL (80-100); Mean Platelet Volume 10.8 fL (9.1-12.4); NEUTROPHILS ABSOLUTE AUTO 4.51 K/mm3 (1.96-9.15); NEUTROPHILS PERCENT AUTO 68 % (41-73); Platelet Count 207 K/mm3 (150-400); RDW Coefficient Variation 16.7 % (11.7-14.2); RDW Standard Deviation 45.6 fL (35.1-46.3); White Blood Cell Count 6.62 K/mm3 (4.00-11.30)
[2023-06-28 18:15] LABS: Albumin, Blood 3.4 g/dL (3.4-5.0); Bilirubin, Total 0.2 mg/dL (0.1-1.0); Bun/Creatinine Ratio 36.5 (12.0-20.0); Calcium, Blood 8.6 mg/dL (8.5-10.1); Creatinine, Blood 0.44 mg/dL (0.40-1.00); Globulin, Blood 3.3 g/dL (2.2-4.0); Potassium, Blood 4.1 mmol/L (3.5-5.5); Total Protein, Blood 6.7 g/dL (6.4-8.2)
[2023-06-28] MEDS ORDERED: MYCO250 PO (19:43)
[2023-06-28] MEDS ORDERED: MAGCIT300 PO (19:45)
[2023-06-28] MEDS ORDERED: Diflucan100 MG PO (19:46)
[2023-06-28] MEDS ORDERED: ALBU90OI INH (19:46)
[2023-06-28] MEDS ORDERED: ONDA4 PO (19:46)
--- NOTE | 2023-06-29 00:05 | NUR ---
NEW ADMIT. PATIENT TRANSFERED TO ROOM 359 FROM THE ER VIA [facility]. PATIENT TRANSFERED TO HOSPITAL BED FROM [facility] WITH SLIDE SHEET AND 3 PERSON ASSIST. PATIENT CAME UP TO FLOOR WITH IV FLUIDS.
[2023-06-29 00:10] VITALS: BP 149/81
[2023-06-29 03:19] VITALS: BP 120/58
[2023-06-29 05:16] LABS: BASOPHILS ABSOLUTE AUTO 0.02 K/mm3 (0.00-0.23); BASOPHILS PERCENT AUTO 0 % (0-2); EOSINOPHILS ABSOLUTE AUTO 0.32 K/mm3 (0.00-0.68); EOSINOPHILS PERCENT AUTO 4 % (0-6); Hematocrit 32.6 % (33.0-51.0); Hemoglobin 10.4 g/dL (11.5-16.0); IMMATURE GRAN ABSOLUTE AUTO 0.02 K/mm3 (0.00-0.10); IMMATURE GRAN PERCENT AUTO 0 % (0-1); LYMPHOCYTES ABSOLUTE AUTO 1.19 K/mm3 (0.84-5.20); LYMPHOCYTES PERCENT AUTO 14 % (21-46); MONOCYTES ABSOLUTE AUTO 1.09 K/mm3 (0.16-1.47); MONOCYTES PERCENT AUTO 13 % (4-13); Mean Corpuscular HGB 24.7 pg (26.0-34.0); Mean Corpuscular HGB Conc 31.9 g/dL (31.5-36.5); Mean Corpuscular Volume 77 fL (80-100); Mean Platelet Volume 10.6 fL (9.1-12.4); NEUTROPHILS ABSOLUTE AUTO 5.79 K/mm3 (1.96-9.15); NEUTROPHILS PERCENT AUTO 69 % (41-73); Platelet Count 175 K/mm3 (150-400); RDW Coefficient Variation 16.6 % (11.7-14.2); RDW Standard Deviation 45.5 fL (35.1-46.3); Red Blood Cell Count 4.21 M/mm3 (3.80-5.20); White Blood Cell Count 8.43 K/mm3 (4.00-11.30)
[2023-06-29 05:49] LABS: Albumin, Blood 2.8 g/dL (3.4-5.0); Bilirubin, Total 0.2 mg/dL (0.1-1.0); Bun/Creatinine Ratio 29.9 (12.0-20.0); Calcium, Blood 7.9 mg/dL (8.5-10.1); Creatinine, Blood 0.47 mg/dL (0.40-1.00); Globulin, Blood 2.9 g/dL (2.2-4.0); Potassium, Blood 3.8 mmol/L (3.5-5.5); Total Protein, Blood 5.7 g/dL (6.4-8.2)
[2023-06-29 07:24] VITALS: BP 124/52
--- NOTE | 2023-06-29 07:32 | NUR ---
SHIFT SUMMARY. PATIENT IS A/OX4. PATIENT HAS WEAKNESS TO BLE. PATIENT IS ABLE TO MAKE HER NEEDS KNOWN. PATIENT IS 1P ASSIST W/FWW AND GAIT BELT TO BSC. PATIENT HAS RED RASH SCATTERED T/O. PATIENT IN ISOLATION FOR ESBL IN URINE. PATIENT CALLS APPROPRIATELY AND IS ABLE TO MAKE HER NEEDS KNOWN. BED IS LOCKED IN THE LOWEST POSITION WITH CALL LIGHT IN REACH. NO S/S OF DISTRESS NOTED AT THIS TIME.
[2023-06-29 16:04] VITALS: BP 124/69
--- NOTE | 2023-06-29 18:23 | NUR ---
SHIFT SUMMARY PATIENT PARTICIPATING WITH PHYSICAL THERAPY THIS SHIFT. INCONTINENT OF URINE SEVERAL TIMES. C/O GENERALIZED CHRONIC PAIN, GOOD RELIEF WITH NORCO. DIFFUSE RED RASH, TREATED WITH ANTIFUNGAL CREAM PER ORDER. TOLERATING ABX WELL. WILL CONTINUE TO MONITOR
[2023-06-29 20:11] VITALS: BP 112/60
[2023-06-30 04:07] VITALS: BP 115/61
--- NOTE | 2023-06-30 07:17 | NUR ---
REPORT RECEIVED VERIFIED, PT QUIETLY LAYING IN BED, DID VERY WELL LAST NIGHT AND STAYED UP UNTIL 4AM. PT CALLS APPROPRIATLY AND IS ABLE TO MAKE NEEDS KNOWN. ISOLATION CONT, C/O MINIMAL PAIN.
[2023-06-30 07:35] VITALS: BP 127/59
[2023-06-30 16:09] VITALS: BP 116/57
--- NOTE | 2023-06-30 18:39 | NUR ---
ALERT AND ORIENTED X4, MAKES NEEDS KNOWN, CALLS FOR ASSISTANCE, DR OSBORNE ROUNDED EARLIER, BS CAME BACK +ESBL, PYRIDIUM STARTED, MEDICATED WITH HYDROCODONE PER EMAR, PATIENT VISITED WITH FAMILY ON THE PHONE TODAY, CALL LIGHT WITH IN REACH, WILL RELAY TO PM RN
[2023-06-30 19:42] VITALS: BP 107/57
--- NOTE | 2023-06-30 22:56 | NUR ---
REPORT RECEIVED VERIFIED, A/O NO COMPLAINTS TODAY, SITTING UP IN BED CALLS APPROPRIATLY AND MAKES NEEDS KNOWN, STILL ON ISOLATON, VSS. WILL CONT MONITORING
[2023-07-01 03:22] VITALS: BP 128/64
[2023-07-01 08:27] VITALS: BP 115/64
[2023-07-01 09:34] LABS: BASOPHILS ABSOLUTE AUTO 0.02 K/mm3 (0.00-0.23); BASOPHILS PERCENT AUTO 0 % (0-2); EOSINOPHILS ABSOLUTE AUTO 0.48 K/mm3 (0.00-0.68); EOSINOPHILS PERCENT AUTO 8 % (0-6); Hematocrit 36.9 % (33.0-51.0); Hemoglobin 11.5 g/dL (11.5-16.0); IMMATURE GRAN ABSOLUTE AUTO 0.01 K/mm3 (0.00-0.10); IMMATURE GRAN PERCENT AUTO 0 % (0-1); LYMPHOCYTES PERCENT AUTO 17 % (21-46); MONOCYTES ABSOLUTE AUTO 0.71 K/mm3 (0.16-1.47); MONOCYTES PERCENT AUTO 12 % (4-13); Mean Corpuscular HGB 24.5 pg (26.0-34.0); Mean Corpuscular HGB Conc 31.2 g/dL (31.5-36.5); Mean Corpuscular Volume 79 fL (80-100); Mean Platelet Volume 10.3 fL (9.1-12.4); NEUTROPHILS ABSOLUTE AUTO 3.76 K/mm3 (1.96-9.15); NEUTROPHILS PERCENT AUTO 63 % (41-73); Platelet Count 198 K/mm3 (150-400); RDW Coefficient Variation 16.7 % (11.7-14.2); RDW Standard Deviation 46.9 fL (35.1-46.3); White Blood Cell Count 5.98 K/mm3 (4.00-11.30)
[2023-07-01 09:53] LABS: Albumin/Globulin Ratio 0.9 (0.8-1.8); Bilirubin, Total 0.2 mg/dL (0.1-1.0); Bun/Creatinine Ratio 21.5 (12.0-20.0); Calcium, Blood 8.6 mg/dL (8.5-10.1); Creatinine, Blood 0.51 mg/dL (0.40-1.00); Globulin, Blood 3.2 g/dL (2.2-4.0); Total Protein, Blood 6.2 g/dL (6.4-8.2)
[2023-07-01 14:29] VITALS: BP 127/55
[2023-07-01 19:20] VITALS: BP 148/68
--- NOTE | 2023-07-01 19:32 | NUR ---
SHIFT SUMMARY PATIENT ALERT AND INTERACTIVE. PATIENT UP TO CHAIR X2 AND AMBULATED TO BR TODAY. PATIENT MEDICATED WITH SOLUMEDROL TODAY FOR AUTOIMMUNE DISORDER. PATIENT NOTED TO HAVE AN IMPROVEMENT IN RASH ON SKIN FOR ABOUT 6 HOURS THEN NOTED TO HAVE RASH SLOWLY RETURNING TO HER FACE AND EXTREMETIES. PATIENT STATED THAT IT DID HELP WITH DISCOMFORT ON HER FACE AND AROUND HER EYES. ABDOMIN CONTINUES TO BE TENDER TO PALPATION PATIENT PASSING CLEAR MUCOUS FOR STOOL WHEN UP TO BR. LUNGS DECREASED THROUGHOUT. PATIENT CONTINUES TO REPORT SORE THROAT AND TENDERNESS WHEN SWALLOWS. PATIENT VERBALIZING FRUSTRATION WITH REPEATED UTI. VAGINAL AREA VISUALIZED WITH DR. OSBORNE FOR MUCUS, REDNESS OR OPEN WOUNDS. NO OPEN WOUNDS OR MUCUS SEEN. NEW IV PLACED. PATIENT CONTINUES ON ANTIBIOTIC THERAPY. SISTER INVOLVED VIA PHONE WITH UPDATE FROM DR. OSBORNE AND PATIENT.
[2023-07-02 03:16] VITALS: BP 124/67
--- NOTE | 2023-07-02 05:01 | NUR ---
1900: ASSUMED CARE OF PT, REPORT RECEIVED FROM DAY SHIFT RN. PT IS FOUND TO BE SITTING UP IN THE CHAIR FINISHING HER MEAL. ASSITED BACK TO BED BY THE BREAKER OPERATOR. PT IS A/O X4, SBA. VSS, MEDICAITONS PROVIDED PER ORDERS. PT TOLERATED WELL WITH PUDDING. MEDICATED FOR PAIN. CALL TO PROVIDER TO REQUEST HOME MEDICATION PT HAS NOT BEEN TAKING SINCE ADMIT, NEW ORDERS RECEIVED. STAND BY ASSIST TO THE BATHROOM. PT HAD LARGE BM AND VOID. NO ACUTE DISTRESS THROUGHOUT SHIFT. PT SNACKED UNTIL ABOUT MIDNIGHT. NEEDS WERE MET. CALL LIGHT WITHIN REACH, BED IN THE LOWEST POSITION, BED ALARM IN PLACE.
[2023-07-02 07:45] VITALS: BP 109/53
[2023-07-02 09:13] LABS: BASOPHILS ABSOLUTE AUTO 0.01 K/mm3 (0.00-0.23); BASOPHILS PERCENT AUTO 0 % (0-2); EOSINOPHILS PERCENT AUTO 0 % (0-6); Hematocrit 36.8 % (33.0-51.0); Hemoglobin 11.4 g/dL (11.5-16.0); IMMATURE GRAN ABSOLUTE AUTO 0.07 K/mm3 (0.00-0.10); IMMATURE GRAN PERCENT AUTO 1 % (0-1); LYMPHOCYTES PERCENT AUTO 7 % (21-46); MONOCYTES ABSOLUTE AUTO 0.76 K/mm3 (0.16-1.47); MONOCYTES PERCENT AUTO 8 % (4-13); Mean Corpuscular HGB 23.9 pg (26.0-34.0); Mean Corpuscular Volume 77 fL (80-100); Mean Platelet Volume 10.6 fL (9.1-12.4); NEUTROPHILS ABSOLUTE AUTO 8.19 K/mm3 (1.96-9.15); NEUTROPHILS PERCENT AUTO 84 % (41-73); Platelet Count 221 K/mm3 (150-400); RDW Standard Deviation 44.2 fL (35.1-46.3); Red Blood Cell Count 4.76 M/mm3 (3.80-5.20); White Blood Cell Count 9.73 K/mm3 (4.00-11.30)
[2023-07-02 09:36] LABS: Albumin, Blood 3.1 g/dL (3.4-5.0); Bilirubin, Total 0.1 mg/dL (0.1-1.0); Bun/Creatinine Ratio 27.4 (12.0-20.0); Calcium, Blood 8.6 mg/dL (8.5-10.1); Creatinine, Blood 0.44 mg/dL (0.40-1.00); Globulin, Blood 3.2 g/dL (2.2-4.0); Potassium, Blood 3.8 mmol/L (3.5-5.5); Total Protein, Blood 6.3 g/dL (6.4-8.2)
[2023-07-02 14:18] VITALS: BP 137/72
--- NOTE | 2023-07-02 18:10 | NUR ---
PATIENT A/OX4, UP WITH FWW AND SBA. C/O ABDMINIMAL PAIN AND HEADACHE THROUGHOUT THE DAY. NORCO AND ONE TIME DOSE OF TRAMADOL USED TO TREAT. PATIENT ALSO HAD ACID INDIGESTION AND PROTONIX GIVEN X1 WITH STATED RELIEF. PT WORKED WITH OT TODAY AND WAS UP IN CHAIR FOR LUNCH. NYSTATIN APPLIED TO REDNESS TO GROIN AND THIGHS. PATIENT IS CALM AND COOPERATIVE WITH CARE AND ABLE TO MAKE NEEDS KNOWN. NO NEW CONCERNS THIS SHIFT.
[2023-07-02 21:01] VITALS: BP 124/63
[2023-07-03 05:05] VITALS: BP 131/65
--- NOTE | 2023-07-03 06:05 | NUR ---
SHIFT SUMMARY PATIENT ALERT AND ORIENTED X4. MEDICATED PER EMAR FOR PAIN, NAUSEA, AND HEART BURN. PATIENT REPORTS THAT PAIN MEDICATION HAS NOT HELPED WITH HER BELLY PAIN, HOWEVER IT DOES FEEL LESS TENDER THAN IT DID WHEN SHE GOT HERE. ON ROOM AIR. DENIES SHORTNESS OF BREATH AND CHEST PAIN. VITAL SIGNS STABLE. WILL CONTINUE TO MONITOR. CALL LIGHT WITHIN REACH.
[2023-07-03 07:34] VITALS: BP 136/67
[2023-07-03 09:21] LABS: BASOPHILS ABSOLUTE AUTO 0.05 K/mm3 (0.00-0.23); BASOPHILS PERCENT AUTO 1 % (0-2); EOSINOPHILS ABSOLUTE AUTO 0.16 K/mm3 (0.00-0.68); EOSINOPHILS PERCENT AUTO 2 % (0-6); Hemoglobin 11.5 g/dL (11.5-16.0); IMMATURE GRAN ABSOLUTE AUTO 0.06 K/mm3 (0.00-0.10); IMMATURE GRAN PERCENT AUTO 1 % (0-1); LYMPHOCYTES ABSOLUTE AUTO 2.39 K/mm3 (0.84-5.20); LYMPHOCYTES PERCENT AUTO 24 % (21-46); MONOCYTES ABSOLUTE AUTO 0.96 K/mm3 (0.16-1.47); MONOCYTES PERCENT AUTO 10 % (4-13); Mean Corpuscular HGB Conc 31.1 g/dL (31.5-36.5); Mean Corpuscular Volume 77 fL (80-100); Mean Platelet Volume 10.3 fL (9.1-12.4); NEUTROPHILS ABSOLUTE AUTO 6.44 K/mm3 (1.96-9.15); NEUTROPHILS PERCENT AUTO 64 % (41-73); Platelet Count 246 K/mm3 (150-400); RDW Coefficient Variation 16.4 % (11.7-14.2); RDW Standard Deviation 45.1 fL (35.1-46.3); Red Blood Cell Count 4.79 M/mm3 (3.80-5.20); White Blood Cell Count 10.06 K/mm3 (4.00-11.30)
--- NOTE | 2023-07-03 15:13 | NUR ---
PATIENT A/OX4, CALMAND COOPERATIVE WITH CARE. CALLS APPROPRIATELY FOR ASSISTANCE. STATES SHE FEELS MUCH BETTER TODAY. CONTINUES TO HAVE SOME PAIN IN ABDOMEN AND A MILD HEADACHE, BUT REPORTS IT IS MUCH IMPROVED. AMBULATING WITH FWW, GB AND SBA. WORKING WITH PT/OT. TOLERATING REGULAR DIET. VSS, ON RA. SR ON TELEMETRY, NO EVENTS THIS SHIFT. NO ACUTE CHANGES THIS SHIFT.
[2023-07-03 15:49] VITALS: BP 115/60
--- NOTE | 2023-07-03 16:24 | NUR ---
ASSUMED CARE OF PT. REPORT RECIEVED. DURING INTRODUCTION, PT ALERT AND ORIENTED X4. ABLE TO MAKE NEEDS KNOWN. DENIES PAIN AT THIS TIME. NO OTHER NEEDS CURRENTLY.
[2023-07-03 20:19] VITALS: BP 123/69
[2023-07-04 03:50] VITALS: BP 120/66
[2023-07-04 07:17] VITALS: BP 127/79
--- NOTE | 2023-07-04 07:44 | NUR ---
SHIFT SUMMARY: RUBI IS A&OX4. VSS, NO ACUTE EVENTS THIS SHIFT. SHE IS TOLERATING PO INTAKE WELL, URINATING WITHOUT DIFFICULTY, AND HAD A BM THIS SHIFT. ATTENDS IN PLACE, SHE USES THE CALL LIGHT APPROPRIATELY. IV TO R AC PATENT. SHE IS LYING IN BED WTIH THE CALL LIGHT IN REACH. REPORT WAS GIVEN TO ONCOMING SHIFT.
[2023-07-04 16:48] VITALS: BP 121/76
--- NOTE | 2023-07-04 17:19 | NUR ---
SHIFT SUMMARY PATIENT IS ALERT AND ORIENTED. PATIENT HAS HAD NO ACUTE EVENTS THIS SHIFT. IV ABX INFUSED ORDERED. PATIENT HAS BEEN MEDICATED ONCE FOR PAIN AND ONCE FOR ABD DISCOMFORT. PATIENT HAS HAD NO COMPLAINTS OF SOB, NAUSEA OR VOMITTING. POWERGLIDE HAS BEEN PLACED FOR SNF ABX AT SNF DISCHARGE TOMORROW. BED IN LOWEST AND LOCKED POSITION. CALL LIGHT IN PLACE.
[2023-07-04 20:08] VITALS: BP 126/66
--- NOTE | 2023-07-05 04:43 | NUR ---
END OF SHIFT SUMMARY PT A&O x4, VSS, PT ON RA, AFEBRILE. PT CALM AND COOPERATIVE WITH CARE PROVIDED. PT 1P SBA WITH FWW TO THE BSC/BATHROOM. PT C/O PAIN TO ABDOMEN/LEGS. PAIN MANAGED WITH PRN NORCO, WHICH WAS EFFECTIVE. PT SLEPT ON AND OFF. CARESTAFF CLUSTERED CARE, HEALTHY BOUNDARIES SET. PT ENCOURAGED TO DRINK MORE WATER AND GET SOME REST AFTER FREQUENTLY ASKING FOR PEPSI AFTER 2200. PT ABLE TO MAKE NEEDS KNOWN, CALL LIGHT WITHIN REACH, WCTM.
[2023-07-05 05:03] VITALS: BP 124/67
[2023-07-05 07:37] VITALS: BP 149/64
--- NOTE | 2023-07-05 09:00 | NUR ---
PT QUITE PLEASANT COOP A/O X4, TALKATIVE, STATES PAIN GENERALIZED. TAKES NORCO AND TYLENOL. MED PER EMAR. STATES HOPING TO GO TO REHAB TODAY IN [place]. H/R REG, NO MURMUR NOTED. 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 LUNGS CLEAR BUT DIM T/O. RESP EASY, UNLABORED, ON R.A. DENIES SOB. ABD SOFT NONTENDER. STATES LAST BM YEST. VOIDS SBA TO BATHROOM WITH FWW. BED IN LOW POSITION, CALL LITE IN REACH, PRESENTLY EATING BREAKFAST IN CHAIR,
[2023-07-05] MEDS ORDERED: MEROPENEM1 G1 IV (12:18)
[2023-07-05] MEDS ORDERED: NYSTRIT TOP (12:20)
[2023-07-05] MEDS ORDERED: Prednisone10 MG (12:25)
[2023-07-05] MEDS ORDERED: SULTRIDS PO (12:25)
--- NOTE | 2023-07-05 13:03 | NUR ---
CALLED REPORT TO IN [place]. RN TO EXPECT PT IN ABOUT 2 HRS. EXPLAINED WILL HAVE [employer] ([employer] ABX Q8. ALSO WILL HAVE A [employer] SCRIPT IN [place]. SISTER TO DELIVER PT.
--- NOTE | 2023-07-05 14:06 | NUR ---
1322 pt discharging to snf in [place]. sister transferring pt. pt out door with care [facility] pkt. left at 1322
== END 2023-07-05 13:22 | DRG 690 ==
LOC: ER 15:52 → MEDS 06-29 00:22
PROVIDERS: Family Medicine; Physician Assistant; ADMIT Internal Medicine
DX: N39.0 Urinary tract infection, site not specified (principal); D84.821 Immunodeficiency due to drugs; M33.22 Polymyositis with myopathy; B37.89 Other sites of candidiasis; G89.29 Other chronic pain; N20.9 Urinary calculus, unspecified; K21.9 Gastro-esophageal reflux disease without esophagitis; E03.9 Hypothyroidism, unspecified; E78.5 Hyperlipidemia, unspecified; G47.33 Obstructive sleep apnea (adult) (pediatric); I10 Essential (primary) hypertension; T50.995A Adverse effect of other drugs, medicaments and biological substances, initial encounter; B96.1 Klebsiella pneumoniae [K. pneumoniae] as the cause of diseases classified elsewhere; M54.9 Dorsalgia, unspecified; F32.A Depression, unspecified; J45.909 Unspecified asthma, uncomplicated; F41.9 Anxiety disorder, unspecified; M19.90 Unspecified osteoarthritis, unspecified site; B95.62 Methicillin resistant Staphylococcus aureus infection as the cause of diseases classified elsewhere; Z90.89 Acquired absence of other organs; Z98.890 Other specified postprocedural states; Z89.021 Acquired absence of right finger(s); Z88.5 Allergy status to narcotic agent; Z90.49 Acquired absence of other specified parts of digestive tract; Z88.8 Allergy status to other drugs, medicaments and biological substances; Z91.040 Latex allergy status; Z79.51 Long term (current) use of inhaled steroids; Z79.899 Other long term (current) drug therapy; Z79.891 Long term (current) use of opiate analgesic; Z87.891 Personal history of nicotine dependence; Z79.890 Hormone replacement therapy; Z87.442 Personal history of urinary calculi
CPT/HCPCS: 36415; 76770; 80053; 81001; 83880; 85025; 87040; 87077; 87086; 87147; 87186; 94760; 96360; 97110; 97161; 97165; 97530; 97535; 99285-25; A9270; J1650; J2185; J2405; J2930; J7030; J7050; J7512; J7517

== ENCOUNTER → 2023-06-28 | Outpatient (CLI) | payer MEDICARE, BC ==
[~2023-06-28] MED LIST changes: +BISA10S PR; +Diflucan100 MG PO; +MAGCIT300 PO; +ONDA4 PO
== END ==
LOC: LAB SHORT 14:40 → LAB 14:40
DX: Z87.440 Personal history of urinary (tract) infections (principal)
CPT/HCPCS: 87077; 87086; 87147; 87186

== ENCOUNTER → 2023-08-07 | Outpatient (CLI) | payer MEDICARE, BC ==
[~2023-08-07] MED LIST changes: +Diflucan100 MG PO; +MAGCIT300 PO; +MEROPENEM1 G1 IV; +NYSTRIT TOP; +ONDA4 PO; +Prednisone10 MG; +SULTRIDS PO
[2023-08-07 14:26] LABS: Source, Urine Clean Catch
[2023-08-07 15:24] LABS: Appearance, Urine Hazy (Clear); Bilirubin, Urine Neg (Neg); Blood, Urine 2+ (Neg); Color, Urine Yellow (P-Yellow); Glucose Qualitative, Urine Neg (Neg); Ketones, Urine Neg (Neg); Leukocyte Esterase, Urine 3+ (Neg); Nitrite, Urine Pos (Neg); Protein, Urine 1+ (Neg); Urobilinogen, Urine NORM (Normal)
[2023-08-07 15:37] LABS: Bacteria Many /hpf; Squamous Epithelial Cells Few /hpf (Few); White Blood Cells, Urine TNTC /hpf (0-5)
[2023-08-07 15:38] LABS: Amorphous Light (0-Heavy); Transitional Epithelial Cells Rare /hpf (0-Rare)
== END | disposition home or self-care (01) ==
LOC: LAB 14:24 → LAB SHORT 14:24
PROVIDERS: Internal Medicine Infectious Disease
DX: N39.0 Urinary tract infection, site not specified (principal)
CPT/HCPCS: 81001; 87077; 87086; 87186

== ENCOUNTER → 2023-08-09 | Outpatient (CLI) | payer MEDICARE, BC ==
[~2023-08-09] MED LIST changes: +CLOTRIMAZOLE10 M2 PO; +ESOMEPRAZOLE MA40 MG PO
[2023-08-09 14:55] LABS: BASOPHILS ABSOLUTE AUTO 0.05 K/mm3 (0.00-0.23); BASOPHILS PERCENT AUTO 0 % (0-2); EOSINOPHILS ABSOLUTE AUTO 0.22 K/mm3 (0.00-0.68); EOSINOPHILS PERCENT AUTO 2 % (0-6); Hematocrit 40.4 % (33.0-51.0); Hemoglobin 12.8 g/dL (11.5-16.0); IMMATURE GRAN ABSOLUTE AUTO 0.26 K/mm3 (0.00-0.10); IMMATURE GRAN PERCENT AUTO 2 % (0-1); LYMPHOCYTES ABSOLUTE AUTO 3.13 K/mm3 (0.84-5.20); LYMPHOCYTES PERCENT AUTO 22 % (21-46); MONOCYTES ABSOLUTE AUTO 1.51 K/mm3 (0.16-1.47); MONOCYTES PERCENT AUTO 10 % (4-13); Mean Corpuscular HGB 24.7 pg (26.0-34.0); Mean Corpuscular HGB Conc 31.7 g/dL (31.5-36.5); Mean Corpuscular Volume 78 fL (80-100); Mean Platelet Volume 9.5 fL (9.1-12.4); NEUTROPHILS ABSOLUTE AUTO 9.41 K/mm3 (1.96-9.15); NEUTROPHILS PERCENT AUTO 65 % (41-73); Platelet Count 273 K/mm3 (150-400); RDW Coefficient Variation 18.8 % (11.7-14.2); RDW Standard Deviation 49.7 fL (35.1-46.3); Red Blood Cell Count 5.19 M/mm3 (3.80-5.20); White Blood Cell Count 14.58 K/mm3 (4.00-11.30)
[2023-08-09 15:03] LABS: Albumin, Blood 3.3 g/dL (3.4-5.0); Albumin/Globulin Ratio 0.9 (0.8-1.8); Bilirubin, Total 0.3 mg/dL (0.1-1.0); Bun/Creatinine Ratio 24.7 (12.0-20.0); Creatinine, Blood 0.73 mg/dL (0.40-1.00); Globulin, Blood 3.7 g/dL (2.2-4.0)
== END ==
LOC: LAB SHORT 14:49 → LAB 14:49
PROVIDERS: Physician Assistant
DX: R53.83 Other fatigue (principal)
CPT/HCPCS: 80053; 85025

== ENCOUNTER 2023-08-11 02:11 | Inpatient (IN) | payer MEDICARE, BC ==
[~2023-08-11] VITALS: Ht 149.9 cm; Wt 82.2 kg
[~2023-08-11 02:11] MED LIST changes: -CLOTRIMAZOLE10 M2 PO; -ESOMEPRAZOLE MA40 MG PO
[2023-08-11 03:43] LABS: BASOPHILS ABSOLUTE AUTO 0.05 K/mm3 (0.00-0.23); BASOPHILS PERCENT AUTO 0 % (0-2); EOSINOPHILS ABSOLUTE AUTO 0.07 K/mm3 (0.00-0.68); EOSINOPHILS PERCENT AUTO 1 % (0-6); Hematocrit 38.7 % (33.0-51.0); Hemoglobin 12.3 g/dL (11.5-16.0); IMMATURE GRAN ABSOLUTE AUTO 0.26 K/mm3 (0.00-0.10); IMMATURE GRAN PERCENT AUTO 2 % (0-1); LYMPHOCYTES ABSOLUTE AUTO 1.03 K/mm3 (0.84-5.20); LYMPHOCYTES PERCENT AUTO 8 % (21-46); MONOCYTES ABSOLUTE AUTO 0.71 K/mm3 (0.16-1.47); MONOCYTES PERCENT AUTO 5 % (4-13); Mean Corpuscular HGB 24.6 pg (26.0-34.0); Mean Corpuscular HGB Conc 31.8 g/dL (31.5-36.5); Mean Corpuscular Volume 78 fL (80-100); Mean Platelet Volume 9.8 fL (9.1-12.4); NEUTROPHILS ABSOLUTE AUTO 11.09 K/mm3 (1.96-9.15); NEUTROPHILS PERCENT AUTO 84 % (41-73); Platelet Count 252 K/mm3 (150-400); RDW Coefficient Variation 18.4 % (11.7-14.2); RDW Standard Deviation 49.4 fL (35.1-46.3); Red Blood Cell Count 4.99 M/mm3 (3.80-5.20); White Blood Cell Count 13.21 K/mm3 (4.00-11.30)
[2023-08-11 04:04] LABS: Albumin, Blood 3.4 g/dL (3.4-5.0); Bilirubin, Total 0.2 mg/dL (0.1-1.0); Bun/Creatinine Ratio 32.8 (12.0-20.0); Calcium, Blood 8.8 mg/dL (8.5-10.1); Creatinine, Blood 0.52 mg/dL (0.40-1.00); Globulin, Blood 3.5 g/dL (2.2-4.0); Magnesium, Blood 2.3 mg/dL (1.6-2.4); Potassium, Blood 4.7 mmol/L (3.5-5.5); Total Protein, Blood 6.9 g/dL (6.4-8.2)
[2023-08-11] MEDS ORDERED: NS 1,000 ML IV SCH ×2 (04:15→05:30)
[2023-08-11] MEDS ORDERED: HYDROmorphone HCl/Pf 1MG SYR IV ONE (04:20)
[2023-08-11] MEDS ORDERED: Ondansetron HCl 2 MG / ML 2ML Vial IV ONE (04:20)
[2023-08-11 04:46] LABS: Bilirubin, Urine Neg (Neg); Blood, Urine 1+ (Neg); Glucose Qualitative, Urine Neg (Neg); Ketones, Urine Neg (Neg); Leukocyte Esterase, Urine 3+ (Neg); Nitrite, Urine Neg (Neg); Protein, Urine 1+ (Neg); Urobilinogen, Urine NORM (Normal)
[2023-08-11 04:48] LABS: Appearance, Urine Hazy (Clear); Color, Urine Yellow (P-Yellow)
[2023-08-11] MEDS ORDERED: FLU VACC QS2023-24(6MOS UP)/PF 60 MCG/0.5 ML SYRINGE IM ONE (05:10)
[2023-08-11 05:15] LABS: Red Blood Cells, Urine 0-2 /hpf (0-2); Squamous Epithelial Cells Not Seen /hpf (Few); White Blood Cells, Urine TNTC /hpf (0-5)
[2023-08-11 05:16] LABS: Bacteria Many /hpf
[2023-08-11] MEDS ORDERED: Acetaminophen 325 MG TABLET PO PRN (05:25)
[2023-08-11] MEDS ORDERED: Ondansetron 4 MG SoluTab MM PRN (05:30)
[2023-08-11] MEDS ORDERED: HYDROmorphone HCl/Pf 1MG SYR IV PRN (05:30)
[2023-08-11] MEDS ORDERED: OxyCODONE HCL 5 MG TAB PO PRN (05:30)
[2023-08-11 06:36] VITALS: BP 141/74
[2023-08-11 07:33] VITALS: BP 118/61
[2023-08-11] MEDS ORDERED: Lactobacil 2-S.Thermo-Bifido 1 1 Cap PO SCH (09:00)
[2023-08-11] MEDS ORDERED: Bisacodyl 10 MG Supp PR PRN (11:40)
[2023-08-11] MEDS ORDERED: Albuterol HFA200 ACT/6.7 GM INH INH PRN (11:45)
[2023-08-11] MEDS ORDERED: Docusate Sodium/Senna 1 Tab PO PRN (11:45)
[2023-08-11] MEDS ORDERED: NS 50 ML IV ONE (14:40)
[2023-08-11] MEDS ORDERED: Trospium Chloride 20 MG Tab PO SCH (16:30)
[2023-08-11 17:16] VITALS: BP 147/76
--- NOTE | 2023-08-11 18:04 | NUR ---
SUMMARY- PT MEDICATED X1 THIS SHIFT FOR ABD PAIN WITH OXY, WHICH HELPED PT'S PAIN. X1 ASSIST TO THE BATHROOM. AAOX4. PT HAS URINATED MULTIPLE TIMES THIS SHIFT AND COMPLAINS OF SLIGHT BURNING WHEN URINATING.
[2023-08-11] MEDS ORDERED: Famotidine 20 MG Tab PO SCH (21:00)
[2023-08-11] MEDS ORDERED: Amitriptyline HCl 10 MG Tab PO SCH (21:00)
[2023-08-11] MEDS ORDERED: PARoxetine HCl 10 MG Tab PO SCH (21:00)
[2023-08-11] MEDS ORDERED: Miconazole Nitrate 2% 85 GM PWD TOP SCH (21:00)
[2023-08-11 22:24] VITALS: BP 113/53
[2023-08-12 02:07] VITALS: BP 147/82
[2023-08-12 05:10] LABS: BASOPHILS ABSOLUTE AUTO 0.05 K/mm3 (0.00-0.23); BASOPHILS PERCENT AUTO 1 % (0-2); EOSINOPHILS ABSOLUTE AUTO 0.18 K/mm3 (0.00-0.68); EOSINOPHILS PERCENT AUTO 2 % (0-6); Hematocrit 33.4 % (33.0-51.0); Hemoglobin 10.5 g/dL (11.5-16.0); IMMATURE GRAN ABSOLUTE AUTO 0.23 K/mm3 (0.00-0.10); IMMATURE GRAN PERCENT AUTO 2 % (0-1); LYMPHOCYTES ABSOLUTE AUTO 2.13 K/mm3 (0.84-5.20); LYMPHOCYTES PERCENT AUTO 20 % (21-46); MONOCYTES ABSOLUTE AUTO 1.11 K/mm3 (0.16-1.47); MONOCYTES PERCENT AUTO 11 % (4-13); Mean Corpuscular HGB 25.1 pg (26.0-34.0); Mean Corpuscular HGB Conc 31.4 g/dL (31.5-36.5); Mean Corpuscular Volume 80 fL (80-100); Mean Platelet Volume 10.3 fL (9.1-12.4); NEUTROPHILS ABSOLUTE AUTO 6.77 K/mm3 (1.96-9.15); NEUTROPHILS PERCENT AUTO 65 % (41-73); Platelet Count 211 K/mm3 (150-400); RDW Coefficient Variation 18.6 % (11.7-14.2); RDW Standard Deviation 52.7 fL (35.1-46.3); Red Blood Cell Count 4.18 M/mm3 (3.80-5.20); White Blood Cell Count 10.47 K/mm3 (4.00-11.30)
--- NOTE | 2023-08-12 05:54 | NUR ---
HOSPITALIST CONTACTED. PATIENT REPORTS THAT SHE TAKES OMEPRAZOLE AND PROTONIX AT HOME. CALLED AND TALKED TO DR. ARENAS REGARDING PATIENTS HOME MEDICATIONS. DR. ARENAS ORDERED TO RESTART HOME MEDS.
[2023-08-12 05:57] LABS: Bun/Creatinine Ratio 18.4 (12.0-20.0); Calcium, Blood 8.2 mg/dL (8.5-10.1); Creatinine, Blood 0.6 mg/dL (0.40-1.00); Potassium, Blood 3.6 mmol/L (3.5-5.5)
[2023-08-12] MEDS ORDERED: Levothyroxine Sodium 0.15 MG Tab PO SCH (06:00)
[2023-08-12] MEDS ORDERED: Pantoprazole Sodium 40 MG Tab PO SCH (06:00)
[2023-08-12] MEDS ORDERED: Omeprazole 20 MG CapCR PO SCH (06:00)
[2023-08-12 07:33] VITALS: BP 130/75
--- NOTE | 2023-08-12 07:45 | NUR ---
SHIFT SUMMARY. PATIENT ALERT AND ORIENTED X4. 1 PERSON SBA WITH FWW AND GB. PATIENT IS PLEASANT AND COOPERATIVE WITH CARE. NO ACUTE EVENTS OVER NIGHT. PATIENT CALLS APPROPRIATELY AND IS ABLE TO MAKE HER NEEDS KNOWN. BED IS LOCKED IN THE LOWEST POSITION WITH CALL LIGHT IN REACH. REPORT GIVEN TO DAY SHIFT NURSE.
[2023-08-12] MEDS ORDERED: Clotrimazole 10 MG Troche MT SCH (09:00)
[2023-08-12] MEDS ORDERED: PredniSONE 20 MG Tab PO SCH (09:00)
[2023-08-12] MEDS ORDERED: Polyethylene Glycol 3350 17 gm PO SCH (09:00)
[2023-08-12] MEDS ORDERED: Non-Formulary Drug UD SCH (09:00)
[2023-08-12] MEDS ORDERED: Enoxaparin 40 MG/0.4 ML SYR SC SCH (09:00)
[2023-08-12 15:26] VITALS: BP 134/72
--- NOTE | 2023-08-12 17:53 | NUR ---
SUMMARY- NO CHANGES THIS SHIFT. NO ACUTE EVENTS. PT STILL HAVING FREQUENT BURING URINATION. PT AAOX4. X1 ASSIST TO BATHROOM WITH WALKER.
[2023-08-12 19:51] VITALS: BP 137/82
[2023-08-12] MEDS ORDERED: Estradiol Vag Cream 0.1 MG/G 42.5 GM Tube VAG SCH (21:00)
[2023-08-13 04:15] VITALS: BP 132/69
[2023-08-13 07:10] LABS: Albumin, Blood 2.7 g/dL (3.4-5.0); Anion Gap 2 mmol/L (6-16); Blood Urea Nitrogen 12 mg/dL (8-24); Bun/Creatinine Ratio 18.4 (12.0-20.0); CO2, Blood 31 mmol/L (21-32); Calcium, Blood 8.3 mg/dL (8.5-10.1); Chloride, Blood 104 mmol/L (98-108); Creatinine, Blood 0.65 mg/dL (0.40-1.00); Glomerular Filtration Rate 96 (60-); Glucose, Blood 106 mg/dL (70-99); Phosphorus, Blood 3.4 mg/dL (2.5-4.9); Sodium, Blood 137 mmol/L (136-145)
[2023-08-13 07:24] VITALS: BP 143/75
[2023-08-13 15:18] VITALS: BP 116/64
--- NOTE | 2023-08-13 18:33 | NUR ---
PT PLEASANT TODAY. AMBULATED TO BATHROOM SBA WITH FWW. NO BM YET. STATES FLANK PAIN, FEELS IS KIDNEY STONE PAIN. ALONG WITH UTI. ABX ADMIN. NO OTHER NEW CONCERNS NOTED. BED IN LOW POSITION, [facility], CALLS APPROP
[2023-08-13 19:25] VITALS: BP 129/59
[2023-08-14 02:58] VITALS: BP 123/61
--- NOTE | 2023-08-14 05:04 | NUR ---
SHIFT SUMMARY: RESTING IN BED THIS SHIFT, A&O X4, C/O PAIN AND DISCOMFORT AND MEDICATED PER EMAR, ABX INFUSED ORDERED, UP TO RESTROOM WITH ASSISTANCE AND FWW, BM THIS SHIFT.
[2023-08-14 07:32] VITALS: BP 110/66
[2023-08-14 15:35] VITALS: BP 118/60
--- NOTE | 2023-08-14 17:18 | NUR ---
SHIFT SUMMARY PT AWAKE DURING SHIFT REPORT, RESTING QUIETLY IN BED WATCHING TV. PT CALLED FOR ASSIST TO BTHRM; 1P SBA USING FWW. PT MORBIDLY OBESE, MOVING SLOWLY. UNABLE TO BED OVER TO PUT ON SOCKS AND UNWILLING TO DO MUCH OF ANYTHING FOR HERSELF. PT UNWILLING TO SET UP TO EOB TO EAT MEALS. NO C/O PAIN. RECEIVING IV ABX FOR RECURRENT UTI'S. DENIES FURTHER NEEDS AT THIS TIME. CALL LT IN REACH.
[2023-08-14 19:19] VITALS: BP 125/75
[2023-08-14] MEDS ORDERED: CLOTRIMAZOLE10 M2 PO (19:33)
[2023-08-14] MEDS ORDERED: ESOMEPRAZOLE MA40 MG PO (19:34)
[2023-08-14] MEDS ORDERED: MONT10T PO (19:36)
[2023-08-15 05:07] VITALS: BP 111/78
[2023-08-15 07:54] VITALS: BP 119/65
[2023-08-15 16:23] VITALS: BP 118/68
--- NOTE | 2023-08-15 18:15 | NUR ---
SHIFT SUMMARY PATIENT ALERT AND INTERACTIVE. PATIENT UP TO CHAIR X 1 AND UP TO BR FOR SHOWER USING WALKER AND STAND BY ASSIST. PATIENT CONTINUES TO HAVE SORENESS IN THROAT AND USING TROCHES. POWDER APPLIED TO REDNESS UNDER BREASTS AND SKIN FOLDS. PATIENT STATES IT IS GETTING BETTER. PATIENT HAD SOME NAUSEA THIS AM AFTER EATING BREAKFAST THAT WAS RESOLVED AFTER ZOFRAN. PATIENT DOSING WHEN NOT DISTURBED. PATIENT CONTINUES ON IV ANTIBIOTICS AT THIS TIME.
[2023-08-15 19:28] VITALS: BP 117/53
[2023-08-16] MEDS ORDERED: Fluconazole 100 MG Tab PO ONE (02:35)
[2023-08-16 04:22] VITALS: BP 117/72
[2023-08-16 04:46] LABS: Source, Urine Clean Catch
[2023-08-16 04:48] LABS: Bilirubin, Urine Neg (Neg); Blood, Urine Neg (Neg); Glucose Qualitative, Urine Neg (Neg); Ketones, Urine Neg (Neg); Leukocyte Esterase, Urine 2+ (Neg); Nitrite, Urine Neg (Neg); Protein, Urine 1+ (Neg); Urobilinogen, Urine NORM (Normal); pH, Urine 6.5 (5.0-8.0)
[2023-08-16 05:35] LABS: Color, Urine Yellow (P-Yellow)
[2023-08-16 05:36] LABS: Appearance, Urine Clear (Clear)
[2023-08-16 05:37] LABS: Bacteria Mod /hpf; Red Blood Cells, Urine 0-2 /hpf (0-2); Squamous Epithelial Cells Few /hpf (Few)
[2023-08-16 07:36] VITALS: BP 122/69
[2023-08-16] MEDS ORDERED: Fluconazole 100 MG Tab PO SCH (09:00)
[2023-08-16 15:52] VITALS: BP 120/71
--- NOTE | 2023-08-16 17:58 | NUR ---
SHIFT SUMMARY: PT A&O X4. PLEASANT AND COOPERATIVE WITH CARE. PT C/O PAIN ONCE THIS SHIFT. PLAN FOR PT TO CONTINUE 7 DAY COURSE OF ABX. RECEIVED CALL FROM PT SISTER THIS AM. SISTER STATES SHE CALLED [facility] FOR TELECOMMUNICATION OPERATOR. ALSO INSISTED THAT THIS STAFF REQUEST CONSULT FOR DR. Eric DUE TO "FREQUENT ADMISSIONS, SEPSIS, UTI, AND KIDNEY STONES." SPOKE WITH DR. PADRON REGARDING SISTER REQUEST. PT HAS BEEN C/O ITCHINESS THROUGHOUT BODY. MICONAZOLE POWDER AND LOTION APPLIED. RECEIVED IV ABX W/O COMPLICATIONS. CALL LIGHT IN REACH. IN RECLINER W/O COMPLAINTS. WILL REPORT TO ONCOMING RN.
[2023-08-16 20:58] VITALS: BP 119/56
[2023-08-17 02:57] VITALS: BP 144/61
--- NOTE | 2023-08-17 05:06 | NUR ---
CHARGE ENTRY CLERK SUMMARY VSS - SLIGHT FEVER (99.1), OTHERWISE, WNL. ISOLAATION PRECAUTIONS MAINTAINED - ESBL IN URINE. ALERT TO QUESTIONS ASKED. ANTIBIOTICS INFUSING ORDERED - SEE MAR FOR DETAILS OF PAIN MEDS, ETC. UP WITH ASSIST AND WALKER. HAS BEEN RESTING QUIETLY WITH FEW INTERRUPTIONS. CALL LIGHT IN REACH. RAILS UP X 2 FOR SAFETY. WILL CONTINUE TO MONITOR
[2023-08-17 07:58] VITALS: BP 109/59
[2023-08-17] MEDS ORDERED: DiphenhydrAMINE HCL 25 MG Cap PO PRN (11:55)
[2023-08-17 15:41] VITALS: BP 120/62
--- NOTE | 2023-08-17 17:24 | NUR ---
SHIFT SUMMARY: PT A&O X4. PLEASANT AND COOPERATIVE WITH CARE. NO ACUTE EVENTS OCCURED THIS SHIFT. BENEDRYL ADDED TO PT EMAR FOR ITCHING. MICONAZOLE POWDER APPLIED UNDER BILAT BREASTS AND KRYSTIN AREA. C/O 8/ PAIN ONCE THIS SHIFT. MEDICATED PER EMAR. CALL LIGHT IN REACH. BED IN LOWEST POSITION. WILL REPORT TO ONCOMING RN.
[2023-08-17 20:56] VITALS: BP 129/65
--- NOTE | 2023-08-18 04:39 | NUR ---
LOAN ASSOCIATE SUMMARY VSS. ALERT AND ORIENTED. ANTIBIOTICS AND PAIN MEDS ADMINISTERED ORDERED - SEE MAR FOR DETAILS. WAS WATCHING TV EARLIER IN THE SHIFT, HAS BEEN RESTING QUIETLY WITH FEW INTERRUPTIONS SINCE. COOPERATIVE WITH CARE. CALL LIGHT IN REACH. RSEPS EVEN, NO NOTED S/S ACUTE DISTRESS. RAILS UP X 2 FOR SAFETY. ISOLATION PRECAUTIONS MAINTAINED. WILL CONTINUE TO MONITOR
[2023-08-18 04:50] VITALS: BP 117/64
[2023-08-18 06:19] LABS: BASOPHILS ABSOLUTE AUTO 0.03 K/mm3 (0.00-0.23); BASOPHILS PERCENT AUTO 0 % (0-2); EOSINOPHILS ABSOLUTE AUTO 0.23 K/mm3 (0.00-0.68); EOSINOPHILS PERCENT AUTO 3 % (0-6); Hematocrit 32.9 % (33.0-51.0); Hemoglobin 10.2 g/dL (11.5-16.0); IMMATURE GRAN ABSOLUTE AUTO 0.11 K/mm3 (0.00-0.10); IMMATURE GRAN PERCENT AUTO 1 % (0-1); LYMPHOCYTES ABSOLUTE AUTO 1.23 K/mm3 (0.84-5.20); LYMPHOCYTES PERCENT AUTO 15 % (21-46); MONOCYTES ABSOLUTE AUTO 0.96 K/mm3 (0.16-1.47); MONOCYTES PERCENT AUTO 12 % (4-13); Mean Corpuscular HGB 25.2 pg (26.0-34.0); Mean Corpuscular Volume 81 fL (80-100); NEUTROPHILS ABSOLUTE AUTO 5.54 K/mm3 (1.96-9.15); NEUTROPHILS PERCENT AUTO 68 % (41-73); Platelet Count 174 K/mm3 (150-400); RDW Coefficient Variation 19.5 % (11.7-14.2); Red Blood Cell Count 4.04 M/mm3 (3.80-5.20)
[2023-08-18 06:58] LABS: Albumin, Blood 2.7 g/dL (3.4-5.0); Anion Gap 0 mmol/L (6-16); Blood Urea Nitrogen 9 mg/dL (8-24); Bun/Creatinine Ratio 17.4 (12.0-20.0); CO2, Blood 34 mmol/L (21-32); Calcium, Blood 8.4 mg/dL (8.5-10.1); Chloride, Blood 103 mmol/L (98-108); Creatinine, Blood 0.52 mg/dL (0.40-1.00); Glomerular Filtration Rate 102 (60-); Glucose, Blood 137 mg/dL (70-99); Phosphorus, Blood 3.1 mg/dL (2.5-4.9); Potassium, Blood 4.2 mmol/L (3.5-5.5); Sodium, Blood 137 mmol/L (136-145)
[2023-08-18 07:36] VITALS: BP 132/66
[2023-08-18] MEDS ORDERED: VISBIOME 112.51 EACH PO (10:22)
--- NOTE | 2023-08-18 15:07 | NUR ---
DISCHARGE SUMMARY: A&Ox4. PLEASANT AND COOPERATIVE WITH CARE. VSS. LAST BM TODAY. NO CONCERNS. Rx SENT TO [facility] PER HER REQUEST. PATIENT LEFT THE FLOOR VIA WHEELCHAIR ESCORT ACCOMPANIED BY HER SISTER/CAREGIVER/GUARDIAN VIA PRIVATE VEHICLE WITH ALL BELONGINGS AND DISCHARGE PACKET.
== END 2023-08-18 14:55 | disposition home health service (06) | DRG 690 ==
LOC: ER 02:11 → MEDS 05:06 → ENPENDDIS 08-18 11:05 → MEDS 08-18 14:55
PROVIDERS: Family Medicine; Internal Medicine; Physician Assistant; ADMIT Internal Medicine
DX: N39.0 Urinary tract infection, site not specified (principal); M33.20 Polymyositis, organ involvement unspecified; Z16.12 Extended spectrum beta lactamase (ESBL) resistance; G89.29 Other chronic pain; E03.9 Hypothyroidism, unspecified; K21.9 Gastro-esophageal reflux disease without esophagitis; E78.5 Hyperlipidemia, unspecified; J45.909 Unspecified asthma, uncomplicated; N20.0 Calculus of kidney; B96.1 Klebsiella pneumoniae [K. pneumoniae] as the cause of diseases classified elsewhere; F32.A Depression, unspecified; R53.83 Other fatigue; Z79.890 Hormone replacement therapy; Z87.891 Personal history of nicotine dependence; Z86.16 Personal history of COVID-19; Z79.891 Long term (current) use of opiate analgesic; Z28.21 Immunization not carried out because of patient refusal
CPT/HCPCS: 36415; 71046; 80048; 80053; 80069; 81001; 83605; 83735; 84145; 84484; 85025; 87040; 87077; 87086; 87186; 93005; 93010; 94760; 96361; 96365; 96375; 99285-25; A9270; J1170; J1650; J2185; J2405; J7030

== ENCOUNTER → 2023-08-23 | Outpatient (CLI) | payer MEDICARE, BC ==
[~2023-08-23] MED LIST changes: +CLOTRIMAZOLE10 M2 PO; +ESOMEPRAZOLE MA40 MG PO; +IMURAN50 MG PO; +NITR100CA PO; +PHENA200 PO; +VISBIOME 112.51 EACH PO
== END | disposition home or self-care (01) ==
LOC: LAB 17:43 → LAB SHORT 17:43
DX: N39.0 Urinary tract infection, site not specified (principal)
CPT/HCPCS: 87077; 87086; 87186

== ENCOUNTER 2023-08-27 13:41 | Emergency (ER) | payer MEDICARE, BC ==
[~2023-08-27] VITALS: Ht 149.9 cm; Wt 82.5 kg
[~2023-08-27 13:41] MED LIST changes: -IMURAN50 MG PO; -NITR100CA PO; -PHENA200 PO
[2023-08-27 15:33] LABS: Albumin, Blood 3.4 g/dL (3.4-5.0); Albumin/Globulin Ratio 1.1 (0.8-1.8); Bilirubin, Total 0.3 mg/dL (0.1-1.0); Bun/Creatinine Ratio 18.8 (12.0-20.0); Calcium, Blood 8.5 mg/dL (8.5-10.1); Creatinine, Blood 0.53 mg/dL (0.40-1.00); Globulin, Blood 3.2 g/dL (2.2-4.0); Potassium, Blood 4.9 mmol/L (3.5-5.5); Total Protein, Blood 6.6 g/dL (6.4-8.2)
[2023-08-27] MEDS ORDERED: IMURAN50 MG PO (15:53)
[2023-08-27 17:29] LABS: Source, Urine Voided
[2023-08-27 17:30] VITALS: BP 129/70
[2023-08-27 17:34] LABS: Appearance, Urine Cloudy (Clear); Bilirubin, Urine Neg (Neg); Blood, Urine 2+ (Neg); Color, Urine Yellow (P-Yellow); Glucose Qualitative, Urine Neg (Neg); Ketones, Urine Neg (Neg); Leukocyte Esterase, Urine 3+ (Neg); Nitrite, Urine Pos (Neg); Protein, Urine 2+ (Neg); Specific Gravity, Urine 1.025 (1.003-1.022); Urobilinogen, Urine NORM (Normal)
[2023-08-27 17:43] LABS: Bacteria Many /hpf; Red Blood Cells, Urine 0-2 /hpf (0-2); Squamous Epithelial Cells Few /hpf (Few); White Blood Cells, Urine TNTC /hpf (0-5)
[2023-08-27 18:08] LABS: BASOPHILS ABSOLUTE AUTO 0.04 K/mm3 (0.00-0.23); BASOPHILS PERCENT AUTO 1 % (0-2); EOSINOPHILS ABSOLUTE AUTO 0.27 K/mm3 (0.00-0.68); EOSINOPHILS PERCENT AUTO 4 % (0-6); Hemoglobin 10.6 g/dL (11.5-16.0); IMMATURE GRAN ABSOLUTE AUTO 0.03 K/mm3 (0.00-0.10); IMMATURE GRAN PERCENT AUTO 1 % (0-1); LYMPHOCYTES ABSOLUTE AUTO 1.19 K/mm3 (0.84-5.20); LYMPHOCYTES PERCENT AUTO 18 % (21-46); MONOCYTES ABSOLUTE AUTO 0.83 K/mm3 (0.16-1.47); MONOCYTES PERCENT AUTO 13 % (4-13); Mean Corpuscular HGB 25.8 pg (26.0-34.0); Mean Corpuscular HGB Conc 31.2 g/dL (31.5-36.5); Mean Corpuscular Volume 83 fL (80-100); Mean Platelet Volume 9.4 fL (9.1-12.4); NEUTROPHILS ABSOLUTE AUTO 4.17 K/mm3 (1.96-9.15); NEUTROPHILS PERCENT AUTO 64 % (41-73); Platelet Count 266 K/mm3 (150-400); RDW Standard Deviation 60.6 fL (35.1-46.3); Red Blood Cell Count 4.11 M/mm3 (3.80-5.20); White Blood Cell Count 6.53 K/mm3 (4.00-11.30)
[2023-08-27] MEDS ORDERED: NITR100CA PO (19:04)
[2023-08-27] MEDS ORDERED: PHENA200 PO (19:04)
[2023-08-27] MEDS ORDERED: Nitrofurantoin/Nitrofuran Mac 100 MG Cap PO ONE (19:05)
== END 2023-08-27 19:21 | disposition home or self-care (01) ==
LOC: ER 13:41
PROVIDERS: Emergency Medicine; Physician Assistant
DX: N39.0 Urinary tract infection, site not specified (principal); Z87.891 Personal history of nicotine dependence; Z79.890 Hormone replacement therapy; Z79.899 Other long term (current) drug therapy
CPT/HCPCS: 36415; 80053; 81001; 83605; 85025; 87040; 87077; 87086; 87186; 93005; 93010; 99283-25; A9270

== ENCOUNTER → 2023-10-26 | Outpatient (CLI) | payer MEDICARE, BC ==
[~2023-10-26] MED LIST changes: +Amitriptyline H10 MG PO; +FOLI1 PO; +IMURAN50 MG PO; +METHOTREXATE2.5 M6 PO; +NITR100CA PO; +PHENA200 PO
[2023-10-28 19:05] LABS: Calcium, Urine 14.8 mg/dL (< 17.5); Calcium, Urine Calculation 118.4 mg/24hrs (42.0-353.0); Phosphorus, Urine 45.2 mg/dL (20.0-60.0)
[2023-10-28 19:06] LABS: Protein, Urine Quantitative 29.5 mg/dL (0.0-11.9); Uric Acid, Urine 36.9 mg/dL (7.5-49.5)
== END | disposition home or self-care (01) ==
LOC: LAB 05:30 → LAB SHORT 05:30 → LAB FUT 10-22 08:05
PROVIDERS: Internal Medicine Nephrology
DX: N18.2 Chronic kidney disease, stage 2 (mild) (principal); D63.1 Anemia in chronic kidney disease; N25.81 Secondary hyperparathyroidism of renal origin; E55.9 Vitamin D deficiency, unspecified; E78.00 Pure hypercholesterolemia, unspecified; R76.9 Abnormal immunological finding in serum, unspecified; R94.5 Abnormal results of liver function studies; R94.6 Abnormal results of thyroid function studies
CPT/HCPCS: 81050; 82043; 82340; 82507; 82570; 84105; 84133; 84156; 84300; 84560

== ENCOUNTER → 2023-11-04 | Outpatient (CLI) | payer MEDICARE, BC ==
[~2023-11-04] MED LIST changes: +Ketoconazole15 GM TOP
== END | disposition home or self-care (01) ==
LOC: LAB SHORT 16:56 → LAB 16:56
DX: N39.0 Urinary tract infection, site not specified (principal)
CPT/HCPCS: 87077; 87086; 87186

== ENCOUNTER 2023-11-09 02:33 | Day surgery (SDC) | payer MEDICARE, BC ==
[~2023-11-09 02:33] MED LIST changes: -Ketoconazole15 GM TOP
[2023-11-09 14:01] VITALS: BP 112/64
[2023-11-15] MEDS ORDERED: Estrace Vagin42.5 GM TOP (14:01)
== END 2023-11-09 14:30 | disposition home or self-care (01) ==
LOC: ATC 02:33
DX: N39.0 Urinary tract infection, site not specified (principal); I12.9 Hypertensive chronic kidney disease with stage 1 through stage 4 chronic kidney disease, or unspecified chronic kidney disease; N18.1 Chronic kidney disease, stage 1; E87.70 Fluid overload, unspecified; D63.1 Anemia in chronic kidney disease; N25.81 Secondary hyperparathyroidism of renal origin; D50.9 Iron deficiency anemia, unspecified; R80.9 Proteinuria, unspecified; E55.9 Vitamin D deficiency, unspecified; N20.0 Calculus of kidney; Z88.8 Allergy status to other drugs, medicaments and biological substances; Z91.040 Latex allergy status
CPT/HCPCS: 96374; J1335

== ENCOUNTER 2023-11-10 02:59 | Day surgery (SDC) | payer MEDICARE, BC ==
[2023-11-10 13:45] VITALS: BP 116/64
[2023-11-15] MEDS ORDERED: Estrace Vagin42.5 GM TOP (14:01)
== END 2023-11-10 14:00 | disposition home or self-care (01) ==
LOC: ATC 02:59
DX: N39.0 Urinary tract infection, site not specified (principal); I12.9 Hypertensive chronic kidney disease with stage 1 through stage 4 chronic kidney disease, or unspecified chronic kidney disease; N18.1 Chronic kidney disease, stage 1; E87.70 Fluid overload, unspecified; D63.1 Anemia in chronic kidney disease; N25.81 Secondary hyperparathyroidism of renal origin; D50.9 Iron deficiency anemia, unspecified; R80.9 Proteinuria, unspecified; E55.9 Vitamin D deficiency, unspecified; N20.0 Calculus of kidney; Z79.899 Other long term (current) drug therapy
CPT/HCPCS: 96365; J1335

== ENCOUNTER 2023-11-11 00:33 | Day surgery (SDC) | payer MEDICARE, BC ==
[2023-11-11 10:35] VITALS: BP 133/67
== END 2023-11-11 10:55 | disposition home or self-care (01) ==
LOC: ATC 00:33
DX: M33.22 Polymyositis with myopathy (principal)

== ENCOUNTER 2023-11-12 00:51 | Day surgery (SDC) | payer MEDICARE, BC ==
[2023-11-12 13:45] VITALS: BP 116/69
== END 2023-11-12 14:02 | disposition home or self-care (01) ==
LOC: ATC 00:51
DX: N39.0 Urinary tract infection, site not specified (principal); G89.4 Chronic pain syndrome

== ENCOUNTER 2023-11-13 04:30 | Day surgery (SDC) | payer MEDICARE, BC ==
[2023-11-13 13:52] VITALS: BP 129/80
--- NOTE | 2023-11-13 13:56 | NUR ---
PT'S CAREGIVER STATES THAT PT IS STARTING TO FEEL WORSE. PAINFULL URINATION. DR. BLOCK STATES TO GO TO ER PER PT'S CAREGIVER.
[2023-11-13] MEDS ORDERED: IMURAN50 MG PO (22:54)
[2023-11-13] MEDS ORDERED: Ketoconazole15 GM TOP (22:55)
[2023-11-15] MEDS ORDERED: Estrace Vagin42.5 GM TOP (14:01)
== END 2023-11-13 14:00 | disposition home or self-care (01) ==
LOC: ATC 04:30
DX: N39.0 Urinary tract infection, site not specified (principal)
CPT/HCPCS: 96374; J1335

== ENCOUNTER 2023-11-13 14:21 | Inpatient (IN) | payer MEDICARE, BC ==
[~2023-11-13] VITALS: Ht 157.5 cm; Wt 79.4 kg
[2023-11-18 07:29] VITALS: BP 143/65
== END 2023-11-18 14:04 | disposition home or self-care (01) | DRG 690 ==
LOC: ER 14:21 → MEDS 14:22 → ENPENDDIS 11-18 11:05 → MEDS 11-18 14:04
PROVIDERS: ADMIT Internal Medicine
DX: N39.0 Urinary tract infection, site not specified (principal); M33.20 Polymyositis, organ involvement unspecified; N20.0 Calculus of kidney; E03.9 Hypothyroidism, unspecified; F32.A Depression, unspecified; G89.29 Other chronic pain; M54.9 Dorsalgia, unspecified; K21.9 Gastro-esophageal reflux disease without esophagitis; J45.909 Unspecified asthma, uncomplicated; F41.9 Anxiety disorder, unspecified; Z87.891 Personal history of nicotine dependence; Z88.8 Allergy status to other drugs, medicaments and biological substances; Z88.5 Allergy status to narcotic agent; Z91.040 Latex allergy status; Z79.890 Hormone replacement therapy

== ENCOUNTER 2023-12-15 17:32 | Inpatient (IN) | payer MEDICARE, BC ==
[~2023-12-15] VITALS: Ht 149.9 cm; Wt 76.5 kg
[~2023-12-15 17:32] MED LIST changes: +Estrace Vagin42.5 GM TOP; +Ketoconazole15 GM TOP; +NYAMYC15 G1 TOP; -NYSTRIT TOP
[2023-12-15 18:02] LABS: BASOPHILS ABSOLUTE AUTO 0.02 K/mm3 (0.00-0.23); BASOPHILS PERCENT AUTO 0 % (0-2); EOSINOPHILS ABSOLUTE AUTO 0.07 K/mm3 (0.00-0.68); EOSINOPHILS PERCENT AUTO 2 % (0-6); Hematocrit 39.7 % (33.0-51.0); Hemoglobin 12.5 g/dL (11.5-16.0); IMMATURE GRAN ABSOLUTE AUTO 0.01 K/mm3 (0.00-0.10); IMMATURE GRAN PERCENT AUTO 0 % (0-1); LYMPHOCYTES PERCENT AUTO 19 % (21-46); MONOCYTES ABSOLUTE AUTO 0.53 K/mm3 (0.16-1.47); MONOCYTES PERCENT AUTO 11 % (4-13); Mean Corpuscular HGB Conc 31.5 g/dL (31.5-36.5); Mean Corpuscular Volume 76 fL (80-100); Mean Platelet Volume 10.1 fL (9.1-12.4); NEUTROPHILS ABSOLUTE AUTO 3.27 K/mm3 (1.96-9.15); NEUTROPHILS PERCENT AUTO 68 % (41-73); Platelet Count 169 K/mm3 (150-400); RDW Coefficient Variation 17.6 % (11.7-14.2); RDW Standard Deviation 47.2 fL (35.1-46.3); Red Blood Cell Count 5.21 M/mm3 (3.80-5.20)
[2023-12-15 18:21] LABS: Albumin, Blood 3.6 g/dL (3.4-5.0); Albumin/Globulin Ratio 0.8 (0.8-1.8); Bilirubin, Total 0.3 mg/dL (0.1-1.0); Bun/Creatinine Ratio 21.6 (12.0-20.0); Calcium, Blood 8.8 mg/dL (8.5-10.1); Creatinine, Blood 0.56 mg/dL (0.40-1.00); Globulin, Blood 4.8 g/dL (2.2-4.0); Total Protein, Blood 8.4 g/dL (6.4-8.2)
[2023-12-15] MEDS ORDERED: Ketorolac Tromethamine 30mg Vial IV ONE (21:20)
[2023-12-15] MEDS ORDERED: NS 1,000 ML IV SCH (21:25)
[2023-12-15 22:11] LABS: Source, Urine Clean Catch
[2023-12-15 22:15] LABS: Bilirubin, Urine Neg (Neg); Blood, Urine 3+ (Neg); Glucose Qualitative, Urine Neg (Neg); Ketones, Urine Neg (Neg); Leukocyte Esterase, Urine 3+ (Neg); Nitrite, Urine Pos (Neg); Protein, Urine 2+ (Neg); Urobilinogen, Urine NORM (Normal)
[2023-12-15 22:19] LABS: Appearance, Urine Cloudy (Clear); Color, Urine Yellow (P-Yellow)
[2023-12-15 22:22] LABS: Bacteria Many /hpf; Red Blood Cells, Urine 0-2 /hpf (0-2); Squamous Epithelial Cells Not Seen /hpf (Few); White Blood Cells, Urine TNTC /hpf (0-5)
[2023-12-15] MEDS ORDERED: Meropenem 1,000 MG in NS 100 ML IV ONE (23:10)
[2023-12-15] MEDS ORDERED: DiphenhydrAMINE HCl 50 MG/ML 1ML Vial IV ONE (23:45)
[2023-12-15] MEDS ORDERED: Metoclopramide HCl 5MG / ML 2ML Vial IV ONE (23:45)
[2023-12-16] MEDS ORDERED: Acetaminophen 325 MG TABLET PO PRN (00:30)
[2023-12-16] MEDS ORDERED: Ondansetron 4 MG TAB PO PRN (00:30)
[2023-12-16 00:37] VITALS: BP 141/97
[2023-12-16] MEDS ORDERED: Polyethylene Glycol 3350 17 gm PO PRN (04:45)
[2023-12-16] MEDS ORDERED: Bisacodyl 10 MG Supp PR PRN (04:45)
[2023-12-16] MEDS ORDERED: Ketoconazole 2% Cream 15 GM TOP PRN (04:45)
[2023-12-16] MEDS ORDERED: Docusate Sodium/Senna 1 Tab PO PRN (05:05)
[2023-12-16] MEDS ORDERED: Levothyroxine Sodium 0.15 MG Tab PO SCH (06:00)
[2023-12-16 06:34] LABS: BASOPHILS ABSOLUTE AUTO 0.02 K/mm3 (0.00-0.23); BASOPHILS PERCENT AUTO 0 % (0-2); EOSINOPHILS ABSOLUTE AUTO 0.11 K/mm3 (0.00-0.68); EOSINOPHILS PERCENT AUTO 2 % (0-6); Hematocrit 34.8 % (33.0-51.0); Hemoglobin 10.7 g/dL (11.5-16.0); IMMATURE GRAN ABSOLUTE AUTO 0.02 K/mm3 (0.00-0.10); IMMATURE GRAN PERCENT AUTO 0 % (0-1); LYMPHOCYTES ABSOLUTE AUTO 1.03 K/mm3 (0.84-5.20); LYMPHOCYTES PERCENT AUTO 15 % (21-46); MONOCYTES ABSOLUTE AUTO 0.59 K/mm3 (0.16-1.47); MONOCYTES PERCENT AUTO 8 % (4-13); Mean Corpuscular HGB 23.9 pg (26.0-34.0); Mean Corpuscular HGB Conc 30.7 g/dL (31.5-36.5); Mean Corpuscular Volume 78 fL (80-100); Mean Platelet Volume 11.1 fL (9.1-12.4); NEUTROPHILS ABSOLUTE AUTO 5.28 K/mm3 (1.96-9.15); NEUTROPHILS PERCENT AUTO 75 % (41-73); Platelet Count 148 K/mm3 (150-400); RDW Coefficient Variation 17.5 % (11.7-14.2); RDW Standard Deviation 48.2 fL (35.1-46.3); Red Blood Cell Count 4.47 M/mm3 (3.80-5.20); White Blood Cell Count 7.05 K/mm3 (4.00-11.30)
[2023-12-16 07:06] LABS: Albumin, Blood 2.9 g/dL (3.4-5.0); Albumin/Globulin Ratio 0.7 (0.8-1.8); Bilirubin, Total 0.2 mg/dL (0.1-1.0); Bun/Creatinine Ratio 25.6 (12.0-20.0); Calcium, Blood 8.4 mg/dL (8.5-10.1); Creatinine, Blood 0.59 mg/dL (0.40-1.00); Globulin, Blood 4.1 g/dL (2.2-4.0); Potassium, Blood 3.7 mmol/L (3.5-5.5)
[2023-12-16 07:32] VITALS: BP 142/65
[2023-12-16] MEDS ORDERED: Nystatin/Triamcinolone Ointment 15 GM TOP SCH (08:00)
[2023-12-16] MEDS ORDERED: Folic Acid 1 MG TAB PO SCH (09:00)
[2023-12-16] MEDS ORDERED: Enoxaparin 40 MG/0.4 ML SYR SC SCH (09:00)
[2023-12-16] MEDS ORDERED: Lactobacil 2-S.Thermo-Bifido 1 1 Cap PO SCH (09:00)
[2023-12-16] MEDS ORDERED: Famotidine 20 MG Tab PO SCH (09:00)
[2023-12-16] MEDS ORDERED: Cranberry Extract 250MG W/30 MG Vitamin C Tab PO SCH (09:00)
[2023-12-16] MEDS ORDERED: Docusate Sodium 100 MG Cap PO SCH (09:00)
[2023-12-16] MEDS ORDERED: NS 250 ML IV PRN (11:45)
[2023-12-16] MEDS ORDERED: Meropenem 1,000 MG in NS 100 ML IV SCH (12:00)
[2023-12-16 15:52] VITALS: BP 133/59
--- NOTE | 2023-12-16 17:54 | NUR ---
SUMMARY- AAOX4. SBA TO BSC. COMPLAINTS OF BRISENO. TREATED WITH TYLENOL, WHICH PT VERBALIZED HELPED HER PAIN. NO ACUTE EVENTS THIS SHIFT.
[2023-12-16 19:42] VITALS: BP 132/76
[2023-12-16] MEDS ORDERED: PARoxetine HCl 10 MG Tab PO SCH (21:00)
[2023-12-16] MEDS ORDERED: HYDROcodone 5-APAP 325 TAB PO SCH (21:00)
[2023-12-17 02:51] VITALS: BP 124/54
[2023-12-17 04:50] LABS: BASOPHILS ABSOLUTE AUTO 0.02 K/mm3 (0.00-0.23); BASOPHILS PERCENT AUTO 0 % (0-2); EOSINOPHILS ABSOLUTE AUTO 0.12 K/mm3 (0.00-0.68); EOSINOPHILS PERCENT AUTO 3 % (0-6); Hemoglobin 11.1 g/dL (11.5-16.0); IMMATURE GRAN PERCENT AUTO 0 % (0-1); LYMPHOCYTES ABSOLUTE AUTO 0.95 K/mm3 (0.84-5.20); LYMPHOCYTES PERCENT AUTO 21 % (21-46); MONOCYTES PERCENT AUTO 15 % (4-13); Mean Corpuscular HGB 24.3 pg (26.0-34.0); Mean Corpuscular HGB Conc 31.7 g/dL (31.5-36.5); Mean Corpuscular Volume 77 fL (80-100); Mean Platelet Volume 11.3 fL (9.1-12.4); NEUTROPHILS ABSOLUTE AUTO 2.79 K/mm3 (1.96-9.15); NEUTROPHILS PERCENT AUTO 61 % (41-73); Platelet Count 149 K/mm3 (150-400); RDW Coefficient Variation 17.6 % (11.7-14.2); RDW Standard Deviation 47.8 fL (35.1-46.3); Red Blood Cell Count 4.56 M/mm3 (3.80-5.20); White Blood Cell Count 4.58 K/mm3 (4.00-11.30)
--- NOTE | 2023-12-17 05:04 | NUR ---
SHIFT SUMMARY PT PLEASANT AND COOPERATIVE WITH CARE. PT GIVEN IV ANTIBIOTICS X 2. BED IN LOW POSITION AND PT HAS CALL LIGHT WITHIN HER REACH. WILL CONTINUE TO MONITOR.
[2023-12-17 05:20] LABS: Albumin/Globulin Ratio 0.7 (0.8-1.8); Bilirubin, Total 0.3 mg/dL (0.1-1.0); Bun/Creatinine Ratio 22.4 (12.0-20.0); Calcium, Blood 8.6 mg/dL (8.5-10.1); Creatinine, Blood 0.49 mg/dL (0.40-1.00); Globulin, Blood 4.1 g/dL (2.2-4.0); Potassium, Blood 3.8 mmol/L (3.5-5.5); Total Protein, Blood 7.1 g/dL (6.4-8.2)
[2023-12-17 07:24] VITALS: BP 147/69
[2023-12-17 15:22] VITALS: BP 132/69
[2023-12-17] MEDS ORDERED: Vitamin D1000 UNI1 PO (16:14)
--- NOTE | 2023-12-17 18:42 | NUR ---
SUMMARY- NO ACUTE EVENTS THIS SHIFT. AAOX4. X1 BSC. PT COMPLAINED OF BRISENO AND FEET ACHE-TYLENOL USED FOR PAIN CONTROL.
[2023-12-17 19:48] VITALS: BP 131/63
[2023-12-18 03:28] VITALS: BP 133/73
--- NOTE | 2023-12-18 04:34 | NUR ---
SHIFT SUMMARY 68 YR F ADMITTED ON 12/16/23. FULL CODE. NO ACUTE CHANGES THIS SHIFT. PT IS A&O AND CALLS APPROPRIATELY FOR ASSISTANCE. SHE HAS BEEN UP TO THE BATHROOM SEVERAL TIMES THIS SHIFT. SHE C/O NAUSEA AND WAS GIVEN ZOFRAN TWICE. SHE ALSO C/O BRISENO. SHE IS VERY PLEASANT AND COOPERATIVE WITH CARE. BED IN LOW POSITION AND CALL LIGHT IN REACH.
[2023-12-18 04:59] LABS: BASOPHILS ABSOLUTE AUTO 0.01 K/mm3 (0.00-0.23); BASOPHILS PERCENT AUTO 0 % (0-2); EOSINOPHILS ABSOLUTE AUTO 0.16 K/mm3 (0.00-0.68); EOSINOPHILS PERCENT AUTO 4 % (0-6); Hematocrit 35.1 % (33.0-51.0); Hemoglobin 10.7 g/dL (11.5-16.0); IMMATURE GRAN ABSOLUTE AUTO 0.01 K/mm3 (0.00-0.10); IMMATURE GRAN PERCENT AUTO 0 % (0-1); LYMPHOCYTES ABSOLUTE AUTO 1.18 K/mm3 (0.84-5.20); LYMPHOCYTES PERCENT AUTO 30 % (21-46); MONOCYTES ABSOLUTE AUTO 0.58 K/mm3 (0.16-1.47); MONOCYTES PERCENT AUTO 15 % (4-13); Mean Corpuscular HGB 23.8 pg (26.0-34.0); Mean Corpuscular HGB Conc 30.5 g/dL (31.5-36.5); Mean Corpuscular Volume 78 fL (80-100); Mean Platelet Volume 11.3 fL (9.1-12.4); NEUTROPHILS ABSOLUTE AUTO 1.94 K/mm3 (1.96-9.15); NEUTROPHILS PERCENT AUTO 50 % (41-73); Platelet Count 149 K/mm3 (150-400); RDW Coefficient Variation 17.8 % (11.7-14.2); RDW Standard Deviation 49.1 fL (35.1-46.3); Red Blood Cell Count 4.49 M/mm3 (3.80-5.20); White Blood Cell Count 3.88 K/mm3 (4.00-11.30)
[2023-12-18 05:31] LABS: Albumin, Blood 2.8 g/dL (3.4-5.0); Albumin/Globulin Ratio 0.7 (0.8-1.8); Bilirubin, Total 0.2 mg/dL (0.1-1.0); Bun/Creatinine Ratio 18.4 (12.0-20.0); Calcium, Blood 8.4 mg/dL (8.5-10.1); Creatinine, Blood 0.43 mg/dL (0.40-1.00); Globulin, Blood 4.1 g/dL (2.2-4.0); Potassium, Blood 3.6 mmol/L (3.5-5.5); Total Protein, Blood 6.9 g/dL (6.4-8.2)
[2023-12-18 08:16] VITALS: BP 123/58
--- NOTE | 2023-12-18 09:49 | NUR ---
0900- VERBAL FROM DR. PHAM TO ORDER MAALOX 30ML Q 6 PRN FOR GI UPSET.
[2023-12-18] MEDS ORDERED: Mag Hydrox/AL Hydrox/Simeth 30 ML UDC PO PRN (09:50)
[2023-12-18 15:30] VITALS: BP 127/65
--- NOTE | 2023-12-18 18:13 | NUR ---
SUMMARY- AAOX4. SBA-X1 TO THE BSC. PT COMPLAINED OF BRISENO PAIN AND ACID REFLUX, WHICH WAS MODERATELY RELIEVED BY TYLENOL AND MAALOX. NO ACUTE EVENTS THIS SHIFT.
[2023-12-18 19:41] VITALS: BP 133/68
--- NOTE | 2023-12-18 23:36 | NUR ---
HOSPITALIST CONTACTED. PATIENT REQUESTED FOR NYSTATIN POWDER IN PLACE OF NYSTATIN CREAM FOR REDNESS TO FOLDS. HOSPITALIST LILIANA CONTACTED AND CHANGED CREAM TO POWDER-SEE ORDERS.
--- NOTE | 2023-12-18 23:55 | NUR ---
HOSPITALIST CONTACTED. \ HOSPITALIST LILIANA CONTACTED FOR PATIENT COMPLAINT OF ACID REFLUX-LILIANA ORDERED FOR 1 GRAM TUMS PO Q4H PRN. PATIENT REQUESTED TO RESTART SINGULAIR PER HER HOME MEDS-LILIANA ORDERED FOR SINGULAIR 10MG DAILY AT BEDTIME TO BE STARTED 12/19/2023.
[2023-12-19] MEDS ORDERED: Miconazole Nitrate 2% 85 GM PWD TOP SCH
[2023-12-19 04:33] VITALS: BP 118/57
[2023-12-19 05:32] LABS: BASOPHILS ABSOLUTE AUTO 0.02 K/mm3 (0.00-0.23); BASOPHILS PERCENT AUTO 1 % (0-2); EOSINOPHILS ABSOLUTE AUTO 0.15 K/mm3 (0.00-0.68); EOSINOPHILS PERCENT AUTO 4 % (0-6); Hematocrit 36.3 % (33.0-51.0); Hemoglobin 11.1 g/dL (11.5-16.0); IMMATURE GRAN PERCENT AUTO 0 % (0-1); LYMPHOCYTES ABSOLUTE AUTO 1.25 K/mm3 (0.84-5.20); LYMPHOCYTES PERCENT AUTO 30 % (21-46); MONOCYTES ABSOLUTE AUTO 0.71 K/mm3 (0.16-1.47); MONOCYTES PERCENT AUTO 17 % (4-13); Mean Corpuscular HGB 23.8 pg (26.0-34.0); Mean Corpuscular HGB Conc 30.6 g/dL (31.5-36.5); Mean Corpuscular Volume 78 fL (80-100); Mean Platelet Volume 10.7 fL (9.1-12.4); NEUTROPHILS PERCENT AUTO 50 % (41-73); Platelet Count 170 K/mm3 (150-400); RDW Coefficient Variation 17.4 % (11.7-14.2); RDW Standard Deviation 48.2 fL (35.1-46.3); Red Blood Cell Count 4.67 M/mm3 (3.80-5.20); White Blood Cell Count 4.23 K/mm3 (4.00-11.30)
--- NOTE | 2023-12-19 05:51 | NUR ---
PATIENT IS A&OX4. PATIENT IS A SBAX1 WITH FWW TO THE BSC. PATIENT CALLS APPROPRIATELY AND IS ABLE TO MAKE HER NEEDS KNOWN. PATIENT UP MOST OF THE NIGHT. PATIENT HAD A BM THIS SHIFT. PATIENT IS C/O ACID REFLUX AND REQUESTED FOR TUMS-SEE PREVIOUS NOTES. SINGULAIR ORDERED TO BE STARTED TODAY PER PATIENTS HOME REC-SEE EMAR OR ORDERS. PATIENT REPORTS THATS SHE WOULD RATHER USE THE POWDER NYSTATIN INSTEAD OF THE CREAM-SEE PREVIOUS NOTES. NO ACUTE CHANGES OVERNIGHT. BED IS LOCKED IN THE LOWEST POSITION WITH CALL LIGHT IN REACH. CARE IS ONGOING.
[2023-12-19 05:53] LABS: Albumin, Blood 2.8 g/dL (3.4-5.0); Albumin/Globulin Ratio 0.7 (0.8-1.8); Bilirubin, Total 0.2 mg/dL (0.1-1.0); Bun/Creatinine Ratio 20.5 (12.0-20.0); Calcium, Blood 8.5 mg/dL (8.5-10.1); Creatinine, Blood 0.44 mg/dL (0.40-1.00); Globulin, Blood 4.1 g/dL (2.2-4.0); Potassium, Blood 3.9 mmol/L (3.5-5.5); Total Protein, Blood 6.9 g/dL (6.4-8.2)
[2023-12-19 07:27] VITALS: BP 119/64
[2023-12-19] MEDS ORDERED: Calcium Carbonate 500 MG Tab Chew PO PRN ×2 (09:25→23:55)
[2023-12-19] MEDS ORDERED: Ertapenem Sodium 1,000 MG in NS 50 ML IV ONE (12:00)
--- NOTE | 2023-12-19 12:10 | NUR ---
1100- THIS RN CONTACTED DR. BARRERA AND EXPLAINED TO HER IN DETAIL THE PT'S CONCERNS FOR NOT WANTING TO LEAVE THE HOSPITAL. PT IS STATING SHE IS "TOO WEAK" AND FEELS "TOO SICK TO GO HOME." PT WAS TOLD SHE IS FREE TO "APPEAL" HER DC ORDER IF SHE WISHES. PT IS CALLING HER SISTER TO DISCUSS DC OPTIONS.
[2023-12-19] MEDS ORDERED: CRAN-MAX500 MG PO (12:32)
--- NOTE | 2023-12-19 15:47 | NUR ---
DC-1510 PT LEFT IN STABLE CONDITION WITH SISTER. 1100 AM [facility] APPT MADE FOR TOMORROW. PG PLACED FOR USP ABX AT [facility] PRIOR TO DC BY RENE REGALADO. PT LEFT WITH ALL BELONGINGS. ALL DC PAPERWORK DISCUSSED WITH PT AND SISTER AT LENGTH.
[2023-12-19] MEDS ORDERED: Montelukast Sodium 10 MG Tab PO SCH (21:00)
== END 2023-12-19 15:10 | disposition home or self-care (01) | DRG 690 ==
LOC: ER 17:32 → MEDS 17:33
PROVIDERS: Family Medicine; Family Medicine Adult Medicine; Physician Assistant; ADMIT Internal Medicine
DX: N39.0 Urinary tract infection, site not specified (principal); M33.22 Polymyositis with myopathy; E03.9 Hypothyroidism, unspecified; F32.A Depression, unspecified; R12 Heartburn; B96.1 Klebsiella pneumoniae [K. pneumoniae] as the cause of diseases classified elsewhere; M54.9 Dorsalgia, unspecified; G89.29 Other chronic pain; F41.9 Anxiety disorder, unspecified; K59.09 Other constipation; R13.10 Dysphagia, unspecified; K21.9 Gastro-esophageal reflux disease without esophagitis; E78.5 Hyperlipidemia, unspecified; J45.909 Unspecified asthma, uncomplicated; E86.0 Dehydration; R51.9 Headache, unspecified; Z88.5 Allergy status to narcotic agent; Z88.8 Allergy status to other drugs, medicaments and biological substances; Z91.040 Latex allergy status; Z79.899 Other long term (current) drug therapy; Z79.891 Long term (current) use of opiate analgesic; Z79.890 Hormone replacement therapy; Z90.49 Acquired absence of other specified parts of digestive tract; Z90.89 Acquired absence of other organs; Z98.890 Other specified postprocedural states; Z87.442 Personal history of urinary calculi; Z87.891 Personal history of nicotine dependence; Z79.51 Long term (current) use of inhaled steroids
CPT/HCPCS: 36415; 51701; 74176; 76705; 80053; 81001; 83735; 84484; 85025; 87077; 87086; 87186; 93005; 93010; 93306; 96361-59; 96372; 96374-59; 96375-59; 96376; 99285-25; A9270; C1751; G0378; J1200; J1335; J1650; J1885; J2185; J2765; J7030; J7050

== ENCOUNTER 2023-12-20 06:17 | Day surgery (SDC) | payer MEDICARE, BC ==
[~2023-12-20 06:17] MED LIST changes: +CRAN-MAX500 MG PO; +Ertapenem Sodium 1,000 MG in NS 50 ML IV SCH; +Vitamin D1000 UNI1 PO
[2023-12-20 11:25] VITALS: BP 109/66
== END 2023-12-20 11:38 | disposition home or self-care (01) ==
LOC: ATC 06:17
DX: N39.0 Urinary tract infection, site not specified (principal); Z16.12 Extended spectrum beta lactamase (ESBL) resistance
CPT/HCPCS: 96365; J1335

== ENCOUNTER 2023-12-21 01:22 | Day surgery (SDC) | payer MEDICARE, BC ==
[2023-12-21 13:22] VITALS: BP 131/72
== END 2023-12-21 13:35 | disposition home or self-care (01) ==
LOC: ATC 01:22
DX: N39.0 Urinary tract infection, site not specified (principal); I12.9 Hypertensive chronic kidney disease with stage 1 through stage 4 chronic kidney disease, or unspecified chronic kidney disease; N18.1 Chronic kidney disease, stage 1; N25.81 Secondary hyperparathyroidism of renal origin; E55.9 Vitamin D deficiency, unspecified; Z16.12 Extended spectrum beta lactamase (ESBL) resistance; Z79.899 Other long term (current) drug therapy; Z91.040 Latex allergy status; Z88.8 Allergy status to other drugs, medicaments and biological substances
CPT/HCPCS: 96365; J1335

== ENCOUNTER 2023-12-22 13:08 | Day surgery (SDC) | payer MEDICARE, BC ==
[2023-12-22 13:18] VITALS: BP 130/73
== END 2023-12-22 13:35 | disposition home or self-care (01) ==
LOC: ATC 13:08
DX: N39.0 Urinary tract infection, site not specified (principal); I12.9 Hypertensive chronic kidney disease with stage 1 through stage 4 chronic kidney disease, or unspecified chronic kidney disease; N18.1 Chronic kidney disease, stage 1; N25.81 Secondary hyperparathyroidism of renal origin; E55.9 Vitamin D deficiency, unspecified; Z16.12 Extended spectrum beta lactamase (ESBL) resistance; Z79.899 Other long term (current) drug therapy; Z91.040 Latex allergy status; Z88.8 Allergy status to other drugs, medicaments and biological substances
CPT/HCPCS: 96374; J1335

== ENCOUNTER 2023-12-23 02:12 | Day surgery (SDC) | payer MEDICARE, BC ==
[2023-12-23] MEDS ORDERED: IMMUN GLOB G(IGG)/PRO/IGA 0-50 100 ML IV SCH (07:20)
[2023-12-23 07:56] VITALS: BP 125/56
[2023-12-23 08:46] VITALS: BP 127/70
[2023-12-23 09:02] VITALS: BP 130/68
[2023-12-23 09:15] VITALS: BP 128/76
[2023-12-23 09:33] VITALS: BP 112/61
[2023-12-23 09:47] VITALS: BP 125/69
== END 2023-12-23 10:32 | disposition home or self-care (01) ==
LOC: ATC 02:12
DX: M33.22 Polymyositis with myopathy (principal); I12.9 Hypertensive chronic kidney disease with stage 1 through stage 4 chronic kidney disease, or unspecified chronic kidney disease; N18.1 Chronic kidney disease, stage 1; D63.1 Anemia in chronic kidney disease; E87.70 Fluid overload, unspecified; N25.81 Secondary hyperparathyroidism of renal origin; D50.9 Iron deficiency anemia, unspecified; E55.9 Vitamin D deficiency, unspecified; Z79.899 Other long term (current) drug therapy
CPT/HCPCS: 96365; 96367; J1335; J1459

== ENCOUNTER 2023-12-24 05:23 | Day surgery (SDC) | payer MEDICARE, BC ==
[2023-12-24 13:57] VITALS: BP 123/68
== END 2023-12-24 14:30 | disposition home or self-care (01) ==
LOC: ATC 05:23
DX: N39.0 Urinary tract infection, site not specified (principal); I12.9 Hypertensive chronic kidney disease with stage 1 through stage 4 chronic kidney disease, or unspecified chronic kidney disease; N18.1 Chronic kidney disease, stage 1; D63.1 Anemia in chronic kidney disease; N25.81 Secondary hyperparathyroidism of renal origin; D50.9 Iron deficiency anemia, unspecified; E55.9 Vitamin D deficiency, unspecified; Z16.12 Extended spectrum beta lactamase (ESBL) resistance; Z79.899 Other long term (current) drug therapy; Z88.8 Allergy status to other drugs, medicaments and biological substances; Z91.040 Latex allergy status
CPT/HCPCS: 96365; J1335

== ENCOUNTER 2023-12-26 02:19 | Day surgery (SDC) | payer MEDICARE, BC ==
[2023-12-26 13:58] VITALS: BP 118/72
== END 2023-12-26 14:18 | disposition home or self-care (01) ==
LOC: ATC 02:19
DX: N39.0 Urinary tract infection, site not specified (principal); Z16.12 Extended spectrum beta lactamase (ESBL) resistance; I12.9 Hypertensive chronic kidney disease with stage 1 through stage 4 chronic kidney disease, or unspecified chronic kidney disease; N18.1 Chronic kidney disease, stage 1; N25.81 Secondary hyperparathyroidism of renal origin; D63.1 Anemia in chronic kidney disease; Z88.8 Allergy status to other drugs, medicaments and biological substances; Z79.899 Other long term (current) drug therapy
CPT/HCPCS: 96365; J1335

== ENCOUNTER 2023-12-27 02:04 | Day surgery (SDC) | payer MEDICARE, BC ==
[2023-12-27 07:49] VITALS: BP 132/71
== END 2023-12-27 08:04 | disposition home or self-care (01) ==
LOC: ATC 02:04
DX: N39.0 Urinary tract infection, site not specified (principal); I12.9 Hypertensive chronic kidney disease with stage 1 through stage 4 chronic kidney disease, or unspecified chronic kidney disease; N18.1 Chronic kidney disease, stage 1; N25.81 Secondary hyperparathyroidism of renal origin; E55.9 Vitamin D deficiency, unspecified; Z16.12 Extended spectrum beta lactamase (ESBL) resistance
CPT/HCPCS: 96374; J1335

== ENCOUNTER 2023-12-28 05:11 | Day surgery (SDC) | payer MEDICARE, BC ==
[2023-12-28 13:29] VITALS: BP 126/75
== END 2023-12-28 13:44 | disposition home or self-care (01) ==
LOC: ATC 05:11
DX: N39.0 Urinary tract infection, site not specified (principal); Z16.12 Extended spectrum beta lactamase (ESBL) resistance; I12.9 Hypertensive chronic kidney disease with stage 1 through stage 4 chronic kidney disease, or unspecified chronic kidney disease; N18.1 Chronic kidney disease, stage 1; D63.1 Anemia in chronic kidney disease; N25.81 Secondary hyperparathyroidism of renal origin; Z88.8 Allergy status to other drugs, medicaments and biological substances; Z79.899 Other long term (current) drug therapy
CPT/HCPCS: 96365; J1335

== ENCOUNTER 2023-12-29 04:33 | Day surgery (SDC) | payer MEDICARE, BC ==
[2023-12-29 14:19] LABS: Alanine Aminotransfer (ALT/SGP 17 U/L (12-78); Albumin, Blood 3.2 g/dL (3.4-5.0); Albumin/Globulin Ratio 0.7 (0.8-1.8); Alk Phos 114 U/L (50-136); Anion Gap 7 mmol/L (3-11); Aspartate Aminotrans (AST/SGOT 27 U/L (12-37); BASOPHILS ABSOLUTE AUTO 0.03 K/mm3 (0.00-0.23); BASOPHILS PERCENT AUTO 1 % (0-2); Bilirubin, Total 0.2 mg/dL (0.1-1.0); Blood Urea Nitrogen 16 mg/dL (8-24); Bun/Creatinine Ratio 32.1 (12.0-20.0); C-REACTIVE PROTEIN, EXT RANGE <0.290 mg/dL (0.000-0.300); CO2, Blood 29 mmol/L (21-32); Chloride, Blood 107 mmol/L (98-108); EOSINOPHILS ABSOLUTE AUTO 0.13 K/mm3 (0.00-0.68); EOSINOPHILS PERCENT AUTO 3 % (0-6); Globulin, Blood 4.7 g/dL (2.2-4.0); Glomerular Filtration Rate 103 (60-); Glucose, Blood 92 mg/dL (70-99); Hematocrit 36.9 % (33.0-51.0); Hemoglobin 11.9 g/dL (11.5-16.0); IMMATURE GRAN ABSOLUTE AUTO 0.02 K/mm3 (0.00-0.10); IMMATURE GRAN PERCENT AUTO 1 % (0-1); LYMPHOCYTES ABSOLUTE AUTO 0.97 K/mm3 (0.84-5.20); LYMPHOCYTES PERCENT AUTO 24 % (21-46); MONOCYTES ABSOLUTE AUTO 0.32 K/mm3 (0.16-1.47); MONOCYTES PERCENT AUTO 8 % (4-13); Mean Corpuscular HGB 23.7 pg (26.0-34.0); Mean Corpuscular HGB Conc 32.2 g/dL (31.5-36.5); Mean Corpuscular Volume 73 fL (80-100); NEUTROPHILS ABSOLUTE AUTO 2.62 K/mm3 (1.96-9.15); NEUTROPHILS PERCENT AUTO 64 % (41-73); Potassium, Blood 4.4 mmol/L (3.5-5.5); RDW Coefficient Variation 17.8 % (11.7-14.2); RDW Standard Deviation 46.3 fL (35.1-46.3); Red Blood Cell Count 5.03 M/mm3 (3.80-5.20); Sodium, Blood 139 mmol/L (136-145); Total Protein, Blood 7.9 g/dL (6.4-8.2); White Blood Cell Count 4.09 K/mm3 (4.00-11.30)
[2023-12-29 14:45] LABS: Mean Platelet Volume 11.3 fL (9.1-12.4); Platelet Count 113 K/mm3 (150-400)
[2023-12-30 19:53] LABS: ALDOLASE 4.6 U/L (1.2-7.6)
== END 2023-12-29 13:50 | disposition home or self-care (01) ==
LOC: ATC 04:33
PROVIDERS: Internal Medicine
DX: N39.0 Urinary tract infection, site not specified (principal); Z16.12 Extended spectrum beta lactamase (ESBL) resistance; I12.9 Hypertensive chronic kidney disease with stage 1 through stage 4 chronic kidney disease, or unspecified chronic kidney disease; N18.1 Chronic kidney disease, stage 1; D63.1 Anemia in chronic kidney disease; N25.81 Secondary hyperparathyroidism of renal origin; Z88.8 Allergy status to other drugs, medicaments and biological substances; Z79.899 Other long term (current) drug therapy
CPT/HCPCS: 36415; 80053; 82085; 82550; 85025; 85651; 86140; 96365; J1335

== ENCOUNTER 2024-01-07 00:57 | Day surgery (SDC) | payer MEDICARE, BC ==
[~2024-01-07] VITALS: Ht 160 cm; Wt 76.3 kg
[~2024-01-07 00:57] MED LIST changes: -Ertapenem Sodium 1,000 MG in NS 50 ML IV SCH
[2024-01-07 08:33] VITALS: BP 126/59
[2024-01-07] MEDS ORDERED: IMMUN GLOB G(IGG)/PRO/IGA 0-50 100 ML IV SCH (08:55)
[2024-01-07 10:02] VITALS: BP 129/61
[2024-01-07 10:20] VITALS: BP 115/69
== END 2024-01-07 11:45 | disposition home or self-care (01) ==
LOC: ATC 00:57
DX: M33.22 Polymyositis with myopathy (principal); G89.4 Chronic pain syndrome; Z88.5 Allergy status to narcotic agent; Z88.8 Allergy status to other drugs, medicaments and biological substances; Z79.890 Hormone replacement therapy; Z79.899 Other long term (current) drug therapy
CPT/HCPCS: 96365; 96366; J1459

== ENCOUNTER 2024-01-21 03:02 | Day surgery (SDC) | payer MEDICARE, BC ==
[~2024-01-21] VITALS: Ht 157.5 cm; Wt 75.9 kg
[2024-01-21 09:21] VITALS: BP 113/64
[2024-01-21] MEDS ORDERED: IMMUN GLOB G(IGG)/PRO/IGA 0-50 100 ML IV SCH (09:30)
[2024-01-21 10:04] VITALS: BP 117/66
[2024-01-21 10:47] VITALS: BP 116/63
[2024-01-21 11:07] VITALS: BP 117/68
== END 2024-01-21 12:05 | disposition home or self-care (01) ==
LOC: ATC 03:02
DX: M33.22 Polymyositis with myopathy (principal)
CPT/HCPCS: 96365; 96366; J1459

== ENCOUNTER → 2024-02-03 | Outpatient (CLI) | payer MEDICARE, BC ==
[~2024-02-03] MED LIST changes: +SENNA LAXATIVE8.6 MG PO
== END ==
LOC: LAB SHORT 12:10 → LAB 12:10
DX: R39.9 Unspecified symptoms and signs involving the genitourinary system (principal)
CPT/HCPCS: 87077; 87086; 87186

== ENCOUNTER 2024-02-21 03:39 | Day surgery (SDC) | payer MEDICARE, BC ==
--- NOTE | 2024-02-18 16:05 | NUR ---
Pt did not show for her appointment in the [facility] today.
[2024-02-21] MEDS ORDERED: IMMUN GLOB G(IGG)/PRO/IGA 0-50 100 ML IV SCH (06:00)
[2024-02-21 08:00] VITALS: BP 131/74
[2024-02-21 08:31] VITALS: BP 118/72
[2024-02-21 09:13] VITALS: BP 122/64
[2024-03-07] MEDS ORDERED: FAMO40 PO (19:59)
[2024-03-07] MEDS ORDERED: Desowen60 GM TP ×2 (23:02)
[2024-03-07] MEDS ORDERED: PARO10 PO ×2 (23:03)
[2024-03-07] MEDS ORDERED: Amitriptyline H10 MG PO (23:04)
[2024-03-12] MEDS ORDERED: MEROPENEM1 G1 IV ×2 (07:50)
== END 2024-02-21 10:20 | disposition home or self-care (01) ==
LOC: ATC 03:39
DX: M33.22 Polymyositis with myopathy (principal); K21.9 Gastro-esophageal reflux disease without esophagitis; Z79.899 Other long term (current) drug therapy
CPT/HCPCS: 96365; 96366; J1459

== ENCOUNTER 2024-03-04 00:37 | Day surgery (SDC) | payer MEDICARE, BC ==
[~2024-03-04] VITALS: Ht 157.5 cm; Wt 75.5 kg
[2024-03-04 13:44] VITALS: BP 139/77
[2024-03-04] MEDS ORDERED: FOSFOMYCIN TROME3 G2 PO (13:58)
[2024-03-04] MEDS ORDERED: IMMUN GLOB G(IGG)/PRO/IGA 0-50 100 ML IV SCH (14:15)
[2024-03-04 15:01] VITALS: BP 132/67
[2024-03-04 15:15] VITALS: BP 114/58
[2024-03-04 15:30] VITALS: BP 119/63
[2024-03-04 15:46] VITALS: BP 123/83
== END 2024-03-04 17:02 | disposition home or self-care (01) ==
LOC: ATC 00:37
DX: M33.22 Polymyositis with myopathy (principal)
CPT/HCPCS: 96365; 96366; J1459

== ENCOUNTER 2024-03-19 01:08 | Day surgery (SDC) | payer MEDICARE, BC ==
[~2024-03-19 01:08] MED LIST changes: +Desowen60 GM TP; +FAMO40 PO; +FOSFOMYCIN TROME3 G2 PO; +IMMUN GLOB G(IGG)/PRO/IGA 0-50 100 ML IV SCH; +PARO10 PO
[2024-03-19] MEDS ORDERED: IMMUN GLOB G(IGG)/PRO/IGA 0-50 100 ML IV SCH (06:00)
[2024-03-19 14:27] VITALS: BP 122/64
[2024-03-19 14:43] VITALS: BP 126/60
[2024-03-19 14:59] VITALS: BP 126/69
[2024-03-19 15:16] VITALS: BP 121/77
== END 2024-03-19 16:38 | disposition home or self-care (01) ==
LOC: ATC 01:08
DX: M33.22 Polymyositis with myopathy (principal); G89.4 Chronic pain syndrome; Z79.899 Other long term (current) drug therapy
CPT/HCPCS: 96365; 96366; J1459

== ENCOUNTER 2024-04-14 03:35 | Day surgery (SDC) | payer MEDICARE, BC ==
[~2024-04-14 03:35] MED LIST changes: -IMMUN GLOB G(IGG)/PRO/IGA 0-50 100 ML IV SCH
[2024-04-14] MEDS ORDERED: IMMUN GLOB G(IGG)/PRO/IGA 0-50 100 ML IV SCH (06:00)
[2024-04-14 13:31] VITALS: BP 131/94
[2024-04-14 14:43] VITALS: BP 135/81
[2024-04-14 15:34] VITALS: BP 133/77
== END 2024-04-14 16:52 | disposition home or self-care (01) ==
LOC: ATC 03:35
DX: M33.22 Polymyositis with myopathy (principal); G89.4 Chronic pain syndrome; K21.9 Gastro-esophageal reflux disease without esophagitis; Z79.899 Other long term (current) drug therapy; Z88.0 Allergy status to penicillin; Z88.5 Allergy status to narcotic agent
CPT/HCPCS: 96365; 96366; J1459

== ENCOUNTER 2024-04-24 12:42 | Inpatient (IN) | payer MEDICARE, BC ==
[~2024-04-24] VITALS: Ht 149.9 cm; Wt 79.6 kg
[2024-04-24] MEDS ORDERED: Mag Hydrox/AL Hydrox/Simeth 30 ML UDC PO ONE (13:00)
[2024-04-24 13:27] LABS: BASOPHILS ABSOLUTE AUTO 0.04 K/mm3 (0.00-0.23); BASOPHILS PERCENT AUTO 1 % (0-2); EOSINOPHILS ABSOLUTE AUTO 0.22 K/mm3 (0.00-0.68); EOSINOPHILS PERCENT AUTO 3 % (0-6); Hemoglobin 12.3 g/dL (11.5-16.0); IMMATURE GRAN ABSOLUTE AUTO 0.01 K/mm3 (0.00-0.10); IMMATURE GRAN PERCENT AUTO 0 % (0-1); LYMPHOCYTES ABSOLUTE AUTO 0.96 K/mm3 (0.84-5.20); LYMPHOCYTES PERCENT AUTO 15 % (21-46); MONOCYTES ABSOLUTE AUTO 0.71 K/mm3 (0.16-1.47); MONOCYTES PERCENT AUTO 11 % (4-13); Mean Corpuscular HGB 24.9 pg (26.0-34.0); Mean Corpuscular HGB Conc 31.5 g/dL (31.5-36.5); Mean Corpuscular Volume 79 fL (80-100); Mean Platelet Volume 10.3 fL (9.1-12.4); NEUTROPHILS ABSOLUTE AUTO 4.48 K/mm3 (1.96-9.15); NEUTROPHILS PERCENT AUTO 70 % (41-73); Platelet Count 195 K/mm3 (150-400); RDW Coefficient Variation 19.5 % (11.7-14.2); RDW Standard Deviation 53.7 fL (35.1-46.3); Red Blood Cell Count 4.94 M/mm3 (3.80-5.20); White Blood Cell Count 6.42 K/mm3 (4.00-11.30)
[2024-04-24 13:42] LABS: Albumin, Blood 3.3 g/dL (3.4-5.0); Albumin/Globulin Ratio 0.7 (0.8-1.8); Bilirubin, Total 0.3 mg/dL (0.1-1.0); Bun/Creatinine Ratio 31.4 (12.0-20.0); Calcium, Blood 9.2 mg/dL (8.5-10.1); Creatinine, Blood 0.54 mg/dL (0.40-1.00); Globulin, Blood 4.8 g/dL (2.2-4.0); Potassium, Blood 4.6 mmol/L (3.5-5.5); Total Protein, Blood 8.1 g/dL (6.4-8.2)
[2024-04-24 16:43] LABS: Source, Urine Clean Catch
[2024-04-24 16:49] LABS: Appearance, Urine Hazy (Clear); Bilirubin, Urine Neg (Neg); Blood, Urine 1+ (Neg); Glucose Qualitative, Urine Neg (Neg); Ketones, Urine Neg (Neg); Leukocyte Esterase, Urine 3+ (Neg); Nitrite, Urine Neg (Neg); Protein, Urine 2+ (Neg); Urobilinogen, Urine NORM (Normal)
[2024-04-24 16:51] LABS: Color, Urine Pale Yellow (P-Yellow)
[2024-04-24 16:56] LABS: Bacteria Many /hpf; Squamous Epithelial Cells Few /hpf (Few); White Blood Cells, Urine 25-50 /hpf (0-5)
[2024-04-24] MEDS ORDERED: Meropenem 1,000 MG in NS 100 ML IV ONE (17:20)
[2024-04-24] MEDS ORDERED: Ondansetron HCl 2 MG / ML 2ML Vial IV ONE (17:25)
[2024-04-24] MEDS ORDERED: HYDROcodone 5-APAP 325 TAB PO PRN (18:45)
[2024-04-24] MEDS ORDERED: Amitriptyline HCl 50 MG Tab PO SCH (21:00)
[2024-04-24] MEDS ORDERED: Lactobacil 2-S.Thermo-Bifido 1 1 Cap PO SCH (21:00)
[2024-04-24 21:43] VITALS: BP 153/67
[2024-04-24] MEDS ORDERED: Montelukast Sodium 10 MG Tab PO SCH (22:45)
[2024-04-24] MEDS ORDERED: NS 250 ML IV PRN (23:55)
[2024-04-25] MEDS ORDERED: CefOXitin Sodium 2,000 MG in NS 50 ML IV SCH
--- NOTE | 2024-04-25 03:14 | NUR ---
ADMIT NOTE: PT WAS ADMITTED FROM ER AT 2135. REPORT WAS RECEIVED AND PT WAS BROUGHT UP TO ROOM 328 ON A [address]. SHE WAS TRANSFERRED ONTO HER BED FROM [facility]. SHE WAS ORIENTED TO ROOM AND EQUIPMENT. ALERT ORIENTED X 4 ABLE TO CALL FOR ASSIST. BED ALARM ON R/T SHE WILL TRY TO GET UP ALONE DUE TO FORGETTING TO CALL TO USE BATHROOM. HAS DRY CRACKED BILAT FEET, REDNESS WITH RASH TO ABD FOLDS, KRYSTIN AREA, BREASTS, BUTTOCKS AND BILAT ELBOWS. VSS ON RA. C/O GENERALIZED PAIN MEDICATED WITH NORCO WITH GOOD PAIN RELIEF. REMAINS ON CONTACT PRECAUTIONS R/T ESBL IN URINE. REQUIRES SBA WITH WALKER TO AMBULATE TO THE TOILET. RESTING IN BED AT THIS TIME.
--- NOTE | 2024-04-25 03:36 | NUR ---
SHIFT SUMMARY: PT ALERT ORIENTED X 4 ABLE TO VERBALIZE NEEDS BUT SOMTIMES FORGETS TO CALL FOR ASSIST TO GET UP TO THE TOILET SO BED ALARM IS ONE. VSS ON RA SATTING AT 100%. AMBULATES WITH SBA AND WALKER TO THE BATHROOM WEARS ATTENDS AND IS INCONTINENT AT TIMES.C/O GENERALIZED PAIN MEDICATED WITH NORCO WITH GOOD PAIN RELIEF. REMAINS ON CONTACT PRECAUTIONS R/T ESBL IN URINE. RESTING IM BED AT THIS TIME.
[2024-04-25 06:25] VITALS: BP 135/76
[2024-04-25 07:36] VITALS: BP 124/65
[2024-04-25] MEDS ORDERED: Enoxaparin 40 MG/0.4 ML SYR SC SCH (09:00)
[2024-04-25 16:14] VITALS: BP 119/71
--- NOTE | 2024-04-25 17:35 | NUR ---
SHIFT SUMMARY PT CONT LEVEL OF CARE WITH NO ACUTE CHANGES NOTED. PT IS A&OX4 AND SBA WITH WALKER AND GAITBELT. PT NOTED TO BE INCONT OF BLADDER THIS SHIFT WITH A ATTENDS IN PLACE. PT CONT TO REMAIN IN ISOLATION. PT NOTED TO VOICE C/O PAIN THIS SHIFT AND PRN MEDICATION GIVEN WITH EFFECTIVENESS.
[2024-04-25 20:27] VITALS: BP 123/63
[2024-04-26 05:10] VITALS: BP 121/73
--- NOTE | 2024-04-26 07:05 | NUR ---
AAOX3.FULL CODE. CONTACT PRECAUTIONS FOR ESBL IN URINE. AMBULTES TO BR WITH WALKER AND SBA. BRIEFS ON D/T STRESS INCONTINENCE. PT CAN HAVE NORCO FOR GENERALIZED PAIN.
[2024-04-26 07:27] VITALS: BP 107/61
--- NOTE | 2024-04-26 16:08 | NUR ---
SHIFT SUMMARY: PATIENTB A/OX4, PLEASANT AND COOPERATIVE c CARE. PATIENT REPORTS GENERALIZED PAIN, MEDICATED FOR PAIN PER EMAR c GOOD EFFECT. PATIENT DENIES CP/PRESSURE, SOB, N/V AND DIZZINESS. PATIENT HAS GREAT APPETITE, CONTINENT OF BLADDER AND AMBULATES TO BATHROOM c SBA/FWW. PATIENT SAT UP IN THE RECLINER CHAIR FOR ABOUT 5 HRS THIS SHIFT. PATIENT RECEIVED IV ABX/SCHEDULED MED PER EMAR. VITAL SIGNS REVIEWED. BED/CHAIR ALARM ON FOR SAFETY. CALL LIGHT BEAN REACH.
[2024-04-26 20:03] VITALS: BP 143/74
[2024-04-27 04:04] VITALS: BP 114/63
--- NOTE | 2024-04-27 05:19 | NUR ---
PT ADMITTED ON 04/24/24 WITH ESBL IN URINE, CONTACT PRECAUTIONS. AAOX4. RA. AMULATES WITH WALKER, SLOW STEADY GAIT. INCT/CONT. OF URINE. REDNESS TO FOLDS, COCCYX AND ELBOW. NO BM NOTED FOR 2 DAYS, GAVE PT PRUNE JUICE. NORCO FOR GENERALIZED PT. PT IS PLEASANT AND COOPERATIVE WITH CARES.
[2024-04-27 07:43] VITALS: BP 125/76
[2024-04-27] MEDS ORDERED: IMMUN GLOB G(IGG)/PRO/IGA 0-50 100 ML IV SCH (14:10)
--- NOTE | 2024-04-27 16:08 | NUR ---
IGG INFUSION INCREASING RATE Q30 MINUTES. INCREASED FROM 24 ML/HR TO 48 ML/HR. PT TOLERATED WELL. INCREASED RATE 100ML/HR. PT CONTINUES TO DO WELL WITH NO SIDE EFFECTS NOTED. CARE ON GOING.
[2024-04-27 16:14] VITALS: BP 184/78
--- NOTE | 2024-04-27 18:19 | NUR ---
SHIFT SUMMARY PT CONT LEVEL OF CARE WITH NO ACUTE CHANGES NOTED. CURRENTLY GETTING IGG INFUSION SHE WOULD GET THEM WEEKLY AT THE INFUSION CLINIC. RESTARTED HOME MEDICATION THIS SHIFT.
[2024-04-27 20:43] VITALS: BP 151/71
[2024-04-28 05:36] VITALS: BP 130/72
--- NOTE | 2024-04-28 05:49 | NUR ---
PT ADMITTED 04/24/24 FOR ESBL IN URINE, CONTACT PRECAUTIONS. AAOX4. RA. CONT/INCT OR URINE. AMBULATES WITH WALKER AND SBA TO [facility] FOR PAIN.PT WILL NEED 6 WEEKS OF ANTIBIOTIC. IV ACCES RFA.
[2024-04-28] MEDS ORDERED: NS 50 ML IV ONE ×3 (06:09→11:56)
[2024-04-28 07:16] LABS: BASOPHILS ABSOLUTE AUTO 0.02 K/mm3 (0.00-0.23); BASOPHILS PERCENT AUTO 1 % (0-2); EOSINOPHILS ABSOLUTE AUTO 0.28 K/mm3 (0.00-0.68); EOSINOPHILS PERCENT AUTO 10 % (0-6); Hematocrit 32.9 % (33.0-51.0); IMMATURE GRAN ABSOLUTE AUTO 0.02 K/mm3 (0.00-0.10); IMMATURE GRAN PERCENT AUTO 1 % (0-1); LYMPHOCYTES ABSOLUTE AUTO 0.82 K/mm3 (0.84-5.20); LYMPHOCYTES PERCENT AUTO 28 % (21-46); MONOCYTES ABSOLUTE AUTO 0.71 K/mm3 (0.16-1.47); MONOCYTES PERCENT AUTO 24 % (4-13); Mean Corpuscular HGB 24.6 pg (26.0-34.0); Mean Corpuscular HGB Conc 30.4 g/dL (31.5-36.5); Mean Corpuscular Volume 81 fL (80-100); Mean Platelet Volume 10.5 fL (9.1-12.4); NEUTROPHILS ABSOLUTE AUTO 1.08 K/mm3 (1.96-9.15); NEUTROPHILS PERCENT AUTO 37 % (41-73); Platelet Count 173 K/mm3 (150-400); RDW Coefficient Variation 18.7 % (11.7-14.2); RDW Standard Deviation 54.8 fL (35.1-46.3); Red Blood Cell Count 4.07 M/mm3 (3.80-5.20); White Blood Cell Count 2.93 K/mm3 (4.00-11.30)
[2024-04-28 07:32] LABS: Bun/Creatinine Ratio 16.6 (12.0-20.0); Creatinine, Blood 0.66 mg/dL (0.40-1.00); Potassium, Blood 4.1 mmol/L (3.5-5.5)
[2024-04-28 07:35] VITALS: BP 133/77
[2024-04-28 16:18] VITALS: BP 140/70
--- NOTE | 2024-04-28 17:11 | NUR ---
SUMMARY PT SITTING UP IN BED WATCHING TV, PT HAS BEEN PLEASANT AND COOPERATIVE WITH CARE T/O THE DAY, UP TO THE CHAIR FOR MEALS, HAS NEEDED MINIMAL ASSIST TO GET UP, VSS, WILL CONT TO MONITOR
[2024-04-28 19:37] VITALS: BP 172/86
[2024-04-29 02:46] VITALS: BP 138/98
--- NOTE | 2024-04-29 04:09 | NUR ---
SHIFT SUMMARY PATIENT HAD NO ACUTE CHANGES. AXOX 4 AND SBA TO BR. PIV INTACT. IV ABX INFUSED. DENIES CHEST PAIN, SOB, AND N/V. VSS/AFEBRILE. REPORTED LEG PAIN X ONE AND NORCO GIVEN PER EMAR WITH GOOD EFFECT. COOPERATIVE WITH CARE. CALL LIGHT IN REACH. BED IN LOWEST POSITION. WILL CONTINUE TO MONITOR UNTIL DAY SHIFT NURSE ASSUMES CARE.
[2024-04-29 05:32] LABS: BASOPHILS ABSOLUTE AUTO 0.03 K/mm3 (0.00-0.23); BASOPHILS PERCENT AUTO 1 % (0-2); EOSINOPHILS ABSOLUTE AUTO 0.34 K/mm3 (0.00-0.68); EOSINOPHILS PERCENT AUTO 9 % (0-6); Hematocrit 32.2 % (33.0-51.0); Hemoglobin 10.1 g/dL (11.5-16.0); IMMATURE GRAN ABSOLUTE AUTO 0.02 K/mm3 (0.00-0.10); IMMATURE GRAN PERCENT AUTO 1 % (0-1); LYMPHOCYTES ABSOLUTE AUTO 0.99 K/mm3 (0.84-5.20); LYMPHOCYTES PERCENT AUTO 27 % (21-46); MONOCYTES ABSOLUTE AUTO 0.72 K/mm3 (0.16-1.47); MONOCYTES PERCENT AUTO 20 % (4-13); Mean Corpuscular HGB 24.9 pg (26.0-34.0); Mean Corpuscular HGB Conc 31.4 g/dL (31.5-36.5); Mean Corpuscular Volume 80 fL (80-100); NEUTROPHILS ABSOLUTE AUTO 1.54 K/mm3 (1.96-9.15); NEUTROPHILS PERCENT AUTO 42 % (41-73); Platelet Count 165 K/mm3 (150-400); RDW Coefficient Variation 18.6 % (11.7-14.2); RDW Standard Deviation 53.7 fL (35.1-46.3); Red Blood Cell Count 4.05 M/mm3 (3.80-5.20); White Blood Cell Count 3.64 K/mm3 (4.00-11.30)
[2024-04-29 05:46] LABS: Calcium, Blood 8.6 mg/dL (8.5-10.1); Creatinine, Blood 0.52 mg/dL (0.40-1.00); Potassium, Blood 4.3 mmol/L (3.5-5.5)
[2024-04-29 07:28] VITALS: BP 150/84
[2024-04-29] MEDS ORDERED: Miconazole Nitrate 2% 85 GM PWD TOP SCH (09:00)
[2024-04-29 16:50] VITALS: BP 139/72
--- NOTE | 2024-04-29 18:04 | NUR ---
SHIFT SUMMARY PATIENT A/OX4, ABLE TO MAKE NEEDS KNOWN, PLEASANT AND COOPERATIVE. ABLE TO AMBULATE 1 PERSON ASSIST TO RECLINER AND BATHROOM. PATIENT REQUESTING HOME MEDICATIONS BE RESUMED, SPECIFICALLY MIRALAX AND THYROID MEDICATION. MD NOTIFIED AND STATES WILL RESUME MEDICATIONS. CONTINUES WITH IV ABX AND ON CONTACT PRECAUTIONS FOR ESBL IN URINE. MEDICATED POWDER APPLIED OT MOIST RED RASH TO PANNUS AND UNDERNEATH BREASTS AFTER PATIENT'S SHOWER THIS EVENING. NO OTHER CONCERNS AT THIS TIME.
[2024-04-29] MEDS ORDERED: Polyethylene Glycol 3350 17 gm PO PRN (18:15)
[2024-04-29] MEDS ORDERED: PARoxetine HCl 10 MG Tab PO SCH (18:30)
[2024-04-29 19:53] VITALS: BP 132/72
[2024-04-30 03:48] VITALS: BP 92/66
[2024-04-30] MEDS ORDERED: Levothyroxine Sodium 0.15 MG Tab PO SCH (06:00)
[2024-04-30 06:07] LABS: BASOPHILS ABSOLUTE AUTO 0.04 K/mm3 (0.00-0.23); BASOPHILS PERCENT AUTO 1 % (0-2); EOSINOPHILS ABSOLUTE AUTO 0.27 K/mm3 (0.00-0.68); EOSINOPHILS PERCENT AUTO 6 % (0-6); Hematocrit 35.1 % (33.0-51.0); Hemoglobin 10.8 g/dL (11.5-16.0); IMMATURE GRAN ABSOLUTE AUTO 0.01 K/mm3 (0.00-0.10); IMMATURE GRAN PERCENT AUTO 0 % (0-1); LYMPHOCYTES ABSOLUTE AUTO 1.32 K/mm3 (0.84-5.20); LYMPHOCYTES PERCENT AUTO 31 % (21-46); MONOCYTES ABSOLUTE AUTO 1.15 K/mm3 (0.16-1.47); MONOCYTES PERCENT AUTO 27 % (4-13); Mean Corpuscular HGB 24.5 pg (26.0-34.0); Mean Corpuscular HGB Conc 30.8 g/dL (31.5-36.5); Mean Corpuscular Volume 80 fL (80-100); Mean Platelet Volume 9.7 fL (9.1-12.4); NEUTROPHILS ABSOLUTE AUTO 1.41 K/mm3 (1.96-9.15); NEUTROPHILS PERCENT AUTO 34 % (41-73); Platelet Count 157 K/mm3 (150-400); RDW Coefficient Variation 18.8 % (11.7-14.2); RDW Standard Deviation 53.7 fL (35.1-46.3); Red Blood Cell Count 4.41 M/mm3 (3.80-5.20)
[2024-04-30 06:22] LABS: Bun/Creatinine Ratio 21.6 (12.0-20.0); Calcium, Blood 8.7 mg/dL (8.5-10.1); Creatinine, Blood 0.6 mg/dL (0.40-1.00); Potassium, Blood 4.5 mmol/L (3.5-5.5)
[2024-04-30 08:18] VITALS: BP 154/79
[2024-04-30] MEDS ORDERED: Folic Acid 1 MG TAB PO SCH (09:00)
[2024-04-30] MEDS ORDERED: Sennosides 8.6 MG Tab PO SCH (09:00)
[2024-04-30] MEDS ORDERED: Cholecalciferol 1000 Unit Tablet (=25MCG) PO SCH (09:00)
[2024-04-30 15:05] VITALS: BP 118/66
--- NOTE | 2024-04-30 15:25 | NUR ---
PATIENT C/O PERIPHERAL NEUROPATHY AND REFUSING SCDs. PER GIBSON ALFRED TO DC SINCE USING LOVENOX/CHEMICAL PROPHYLAXIS WELL.
[2024-04-30] MEDS ORDERED: NS 0 ML IV ONE (17:46)
[2024-04-30] MEDS ORDERED: NS 50 ML IV ONE (17:47)
[2024-04-30 19:40] VITALS: BP 130/75
--- NOTE | 2024-04-30 19:52 | NUR ---
END OF SHIFT SUMMARY: A&Ox4. PLEASANT AND COOPERATIVE WITH CARE. CALLS APPROPRIATELY AND IS ABLE TO ADVOCATE NEEDS EFFECTIVELY. CONTINENT OF BOWEL AND BLADDER. SBA c FWW TO BATHROOM. LBM TODAY. MEDS WHOLE WITH FLUIDS UNLESS MULTIPLE PILLS; THEN WHOLE WITH CHOCOLATE PUDDING. NO TELE. IV ABx WITHOUT ISSUE. IV LFA PATENT. OF NOTE, PROVIDER NOTE STATES TO CONTINUE WITH KWON; PATIENT DOES NOT HAVE KWON AND THERE IS NO ORDER FOR KWON. BED IN LOWEST POSITION. CALL LIGHT WITHIN REACH. ALL NEEDS MET. REPORT TO ONCOMING NURSE.
--- NOTE | 2024-05-01 05:10 | NUR ---
SHIFT SUMMARY. PATIENT IS A&OX4. PATIENT REPORTS WEAKNESS TO BLE-PATIENT WORKING WITH PT/OT. PATIENT REPORTS IMPROVEMENT IN HER SYMPTOMS. PATIENT UP WATCHING TV LATE THIS SHIFT, PATIENT IS NOW RESTING WITH RESPIRATIONS EQUAL AND UNLABORED. PATIENT IS ON RA, 1P SBA c FWW TO BATHROOM. PATIENT C/O PAIN-MEDICATED PER ORDERS X1. PATIENT CALLS APPROPRIATELY AND IS ABLE TO MAKE HER NEEDS KNOWN. NO ACUTE CHANGES NOTED TODAY. BED IS LOCKED IN THE LOWEST POSITION WITH CALL LIGHT IN REACH. CARE IS ONGOING.
[2024-05-01 05:12] VITALS: BP 119/66
[2024-05-01 06:16] LABS: BASOPHILS ABSOLUTE AUTO 0.03 K/mm3 (0.00-0.23); BASOPHILS PERCENT AUTO 1 % (0-2); EOSINOPHILS ABSOLUTE AUTO 0.24 K/mm3 (0.00-0.68); EOSINOPHILS PERCENT AUTO 6 % (0-6); Hematocrit 33.1 % (33.0-51.0); Hemoglobin 10.1 g/dL (11.5-16.0); IMMATURE GRAN ABSOLUTE AUTO 0.02 K/mm3 (0.00-0.10); IMMATURE GRAN PERCENT AUTO 1 % (0-1); LYMPHOCYTES ABSOLUTE AUTO 1.16 K/mm3 (0.84-5.20); LYMPHOCYTES PERCENT AUTO 30 % (21-46); MONOCYTES ABSOLUTE AUTO 0.78 K/mm3 (0.16-1.47); MONOCYTES PERCENT AUTO 20 % (4-13); Mean Corpuscular HGB 24.4 pg (26.0-34.0); Mean Corpuscular HGB Conc 30.5 g/dL (31.5-36.5); Mean Corpuscular Volume 80 fL (80-100); Mean Platelet Volume 10.3 fL (9.1-12.4); NEUTROPHILS PERCENT AUTO 42 % (41-73); Platelet Count 178 K/mm3 (150-400); RDW Coefficient Variation 18.7 % (11.7-14.2); RDW Standard Deviation 53.7 fL (35.1-46.3); Red Blood Cell Count 4.14 M/mm3 (3.80-5.20); White Blood Cell Count 3.83 K/mm3 (4.00-11.30)
[2024-05-01 06:41] LABS: Bun/Creatinine Ratio 25.3 (12.0-20.0); Calcium, Blood 8.9 mg/dL (8.5-10.1); Creatinine, Blood 0.55 mg/dL (0.40-1.00); Potassium, Blood 4.3 mmol/L (3.5-5.5)
[2024-05-01 07:24] VITALS: BP 120/61
--- NOTE | 2024-05-01 07:57 | NUR ---
SHIFT CHANGE ASSUMED CARE OF PATIENT AT APPROX. 0700. BEDSIDE SHIFT REPORT COMPLETED WITH JORGE. PATIENT IN BED EATING CHOCOLATE PUDDING. PATIENT DENIES NEEDS AT TIME OF REPORT. PATIENT A&OX4.
--- NOTE | 2024-05-01 09:00 | NUR ---
REPORT REPORT GIVEN TO ALKA AT APPROX 0900. ALKA WILL TAKE OVER CARE OF PATIENT.
[2024-05-01] MEDS ORDERED: Calcium Carbonate 500 MG Tab Chew PO PRN (12:50)
--- NOTE | 2024-05-01 14:30 | NUR ---
RECEIVED PHONE CALL FROM DR NICHOLE STATING THAT PT MAY D/C AFTER 1800 ABT BEING ADMINISTERED.
[2024-05-01 14:48] VITALS: BP 144/75
--- NOTE | 2024-05-01 17:35 | NUR ---
SHIFT SUMMARY PT REMAINS A&O X4 AND SBA WITH WALKER FOR AMBULATION. PT NOTED TO BE CONT BLADDER. PT PLAN IS TO DISCHARGE HOME AFTER 1600 ABT. PT STATED SISTER WILL BE HERE TO PICK HER UP AROUND 1900.
--- NOTE | 2024-05-01 18:37 | NUR ---
DISCHARGE INSTRUCTION GONE OVER WITH PT WHOM STATED UNDERSTANDING.
[2024-05-01 19:25] VITALS: BP 147/77
--- NOTE | 2024-05-01 19:30 | NUR ---
SHIFT SUMMARY PATIENT DISCHARGED HOME. PREVIOUS NURSE COMPLETED ADMIT. RAJAN TRANSPORTING PATIENT TO PATIENTS FAMILY CAR.
== END 2024-05-01 19:30 | disposition home or self-care (01) | DRG 690 ==
LOC: ER 12:42 → MEDS 12:43
PROVIDERS: Internal Medicine; Physician Assistant; Student in an Organized Health Care Education/Training Program; ADMIT Internal Medicine
PROC: 30233S1 Transfusion of Nonautologous Globulin into Peripheral Vein, Percutaneous Approach (ICD-10-PCS; principal; 2024-04-27)
DX: N30.00 Acute cystitis without hematuria (principal); M33.20 Polymyositis, organ involvement unspecified; F11.20 Opioid dependence, uncomplicated; N30.20 Other chronic cystitis without hematuria; K21.9 Gastro-esophageal reflux disease without esophagitis; E03.9 Hypothyroidism, unspecified; G89.4 Chronic pain syndrome; B96.20 Unspecified Escherichia coli [E. coli] as the cause of diseases classified elsewhere; F41.8 Other specified anxiety disorders; E78.5 Hyperlipidemia, unspecified; R33.9 Retention of urine, unspecified; J45.909 Unspecified asthma, uncomplicated; Z88.5 Allergy status to narcotic agent; Z91.040 Latex allergy status; Z88.8 Allergy status to other drugs, medicaments and biological substances; Z79.890 Hormone replacement therapy; Z79.899 Other long term (current) drug therapy; Z89.021 Acquired absence of right finger(s); Z90.49 Acquired absence of other specified parts of digestive tract; Z87.891 Personal history of nicotine dependence
CPT/HCPCS: 36415; 80048; 80053; 81001; 85025; 87077; 87086; 87186; 96365; 96367; 96372; 96375; 96376; 99284-25; A9270; G0378; J0694; J1459; J1650; J2185; J2405; J7050

== ENCOUNTER 2024-06-08 01:39 | Day surgery (SDC) | payer MEDICARE, BC ==
[2024-06-08] MEDS ORDERED: IMMUN GLOB G(IGG)/PRO/IGA 0-50 100 ML IV SCH (13:30)
[2024-06-08 13:52] VITALS: BP 126/71
[2024-06-08 14:33] VITALS: BP 114/60
[2024-06-08 14:48] VITALS: BP 134/66
== END 2024-06-08 16:39 | disposition home or self-care (01) ==
LOC: ATC 01:39
DX: M33.20 Polymyositis, organ involvement unspecified (principal); Z79.899 Other long term (current) drug therapy; Z88.5 Allergy status to narcotic agent; Z88.8 Allergy status to other drugs, medicaments and biological substances; Z91.040 Latex allergy status
CPT/HCPCS: 96365; 96366; J1459

== ENCOUNTER 2024-06-22 04:01 | Day surgery (SDC) | payer MEDICARE, BC ==
[2024-06-22] MEDS ORDERED: IMMUN GLOB G(IGG)/PRO/IGA 0-50 100 ML IV SCH (06:00)
[2024-06-22 13:50] VITALS: BP 124/82
[2024-06-22 14:25] VITALS: BP 138/70
[2024-06-22 14:40] VITALS: BP 141/74
[2024-06-22 14:58] VITALS: BP 142/87
== END 2024-06-22 17:00 | disposition home or self-care (01) ==
LOC: ATC 04:01
DX: M33.22 Polymyositis with myopathy (principal); R51.9 Headache, unspecified; Z88.5 Allergy status to narcotic agent; Z91.040 Latex allergy status; Z88.8 Allergy status to other drugs, medicaments and biological substances; Z79.899 Other long term (current) drug therapy
CPT/HCPCS: 96365; 96366; J1459

== ENCOUNTER 2024-07-06 03:52 | Day surgery (SDC) | payer MEDICARE, BC ==
[~2024-07-06] VITALS: Ht 149.9 cm; Wt 75.3 kg
[2024-07-06] MEDS ORDERED: IMMUN GLOB G(IGG)/PRO/IGA 0-50 100 ML IV SCH (07:30)
[2024-07-06 13:39] VITALS: BP 136/73
[2024-07-06 14:22] VITALS: BP 119/87
[2024-07-06 14:40] VITALS: BP 137/64
[2024-07-06 15:14] VITALS: BP 133/73
== END 2024-07-06 16:31 | disposition home or self-care (01) ==
LOC: ATC 03:52
DX: M33.20 Polymyositis, organ involvement unspecified (principal); R51.9 Headache, unspecified; G89.29 Other chronic pain; R05.3 Chronic cough; Z88.5 Allergy status to narcotic agent; Z88.8 Allergy status to other drugs, medicaments and biological substances; Z79.899 Other long term (current) drug therapy; Z79.890 Hormone replacement therapy
CPT/HCPCS: 96365; 96366; J1459

== ENCOUNTER 2024-07-21 08:21 | Day surgery (SDC) | payer MEDICARE, BC ==
[~2024-07-21 08:21] MED LIST changes: +IMMUN GLOB G(IGG)/PRO/IGA 0-50 100 ML IV SCH
[2024-07-21 13:56] VITALS: BP 124/66
[2024-07-21 14:36] VITALS: BP 126/78
[2024-07-21 15:09] VITALS: BP 120/72
[2024-07-21 15:29] VITALS: BP 119/74
== END 2024-07-21 17:18 | disposition home or self-care (01) ==
LOC: ATC 08:21
DX: M33.20 Polymyositis, organ involvement unspecified (principal); R51.9 Headache, unspecified; Z79.899 Other long term (current) drug therapy; Z88.5 Allergy status to narcotic agent; Z91.040 Latex allergy status
CPT/HCPCS: 96365; 96366; J1459

== ENCOUNTER 2024-08-05 03:00 | Day surgery (SDC) | payer MEDICARE, BC ==
[~2024-08-05 03:00] MED LIST changes: -IMMUN GLOB G(IGG)/PRO/IGA 0-50 100 ML IV SCH
[2024-08-05] MEDS ORDERED: IMMUN GLOB G(IGG)/PRO/IGA 0-50 100 ML IV SCH (07:20)
[2024-08-05 13:58] VITALS: BP 129/83
[2024-08-05 14:42] VITALS: BP 119/67
[2024-08-05 14:57] VITALS: BP 124/71
[2024-08-05 15:17] VITALS: BP 133/73
[2024-08-05 15:37] VITALS: BP 138/70
== END 2024-08-05 17:00 | disposition home or self-care (01) ==
LOC: ATC 03:00
DX: M33.20 Polymyositis, organ involvement unspecified (principal); R51.9 Headache, unspecified; Z88.5 Allergy status to narcotic agent; Z88.8 Allergy status to other drugs, medicaments and biological substances; Z91.040 Latex allergy status
CPT/HCPCS: 96365; 96366; J1459

== ENCOUNTER 2024-08-18 09:11 | Day surgery (SDC) | payer MEDICARE, BC ==
[~2024-08-18] VITALS: Wt 74.8 kg
[~2024-08-18 09:11] MED LIST changes: +IMMUN GLOB G(IGG)/PRO/IGA 0-50 100 ML IV SCH
[2024-08-18] MEDS ORDERED: NYSTATIN PO (13:50)
[2024-08-18 13:55] VITALS: BP 131/80
[2024-08-18 14:34] VITALS: BP 125/74
[2024-08-18 14:50] VITALS: BP 120/73
[2024-08-18 15:08] VITALS: BP 121/82
[2024-08-18 15:27] VITALS: BP 127/77
== END 2024-08-18 16:48 | disposition home or self-care (01) ==
LOC: ATC 09:11
DX: M33.20 Polymyositis, organ involvement unspecified (principal); Z79.899 Other long term (current) drug therapy; Z88.5 Allergy status to narcotic agent; Z88.8 Allergy status to other drugs, medicaments and biological substances; Z91.040 Latex allergy status
CPT/HCPCS: 96365; 96366; J1459

== ENCOUNTER 2024-09-01 00:13 | Day surgery (SDC) | payer MEDICARE, BC ==
[~2024-09-01 00:13] MED LIST changes: +NYSTATIN PO
[2024-09-01 13:55] VITALS: BP 142/76
[2024-09-01 14:25] VITALS: BP 125/71
[2024-09-01 14:44] VITALS: BP 123/77
[2024-09-01 15:05] VITALS: BP 123/71
[2024-09-01 15:27] VITALS: BP 130/71
== END 2024-09-01 16:43 | disposition home or self-care (01) ==
LOC: ATC 00:13
DX: M33.20 Polymyositis, organ involvement unspecified (principal); Z79.899 Other long term (current) drug therapy; Z88.5 Allergy status to narcotic agent; Z88.8 Allergy status to other drugs, medicaments and biological substances; Z91.040 Latex allergy status
CPT/HCPCS: 96365; 96366; J1459

== ENCOUNTER 2024-09-15 03:15 | Day surgery (SDC) | payer MEDICARE, BC ==
[~2024-09-15 03:15] MED LIST changes: -IMMUN GLOB G(IGG)/PRO/IGA 0-50 100 ML IV SCH
[2024-09-15] MEDS ORDERED: IMMUN GLOB G(IGG)/PRO/IGA 0-50 100 ML IV SCH (06:00)
[2024-09-15 14:04] VITALS: BP 116/59
[2024-09-15 14:28] VITALS: BP 114/72
[2024-09-15 14:44] VITALS: BP 104/57
[2024-09-15 15:02] VITALS: BP 109/68
[2024-09-15 15:20] VITALS: BP 112/67
== END 2024-09-15 16:50 | disposition home or self-care (01) ==
LOC: ATC 03:15
DX: M33.20 Polymyositis, organ involvement unspecified (principal); Z88.5 Allergy status to narcotic agent; Z88.8 Allergy status to other drugs, medicaments and biological substances; Z79.890 Hormone replacement therapy; Z79.899 Other long term (current) drug therapy
CPT/HCPCS: 96365; 96366; J1459

== ENCOUNTER 2024-09-29 03:03 | Day surgery (SDC) | payer MEDICARE, BC ==
[~2024-09-29 03:03] MED LIST changes: -Estrace Vagin42.5 GM TOP; +Estrace Vagin42.5 GM VAG; -NYSTATIN PO; -PARO10 PO
[2024-09-29] MEDS ORDERED: IMMUN GLOB G(IGG)/PRO/IGA 0-50 100 ML IV SCH (06:00)
[2024-09-29 13:58] VITALS: BP 133/83
[2024-09-29 14:29] VITALS: BP 120/76
[2024-09-29 15:03] VITALS: BP 126/77
[2024-10-26] MEDS ORDERED: AMOCLA875 PO (15:20)
[2024-11-10] MEDS ORDERED: AMOX-CLAV 875-1 EAC5 PO (14:05)
== END 2024-09-29 16:55 | disposition home or self-care (01) ==
LOC: ATC 03:03
DX: M33.20 Polymyositis, organ involvement unspecified (principal); R51.9 Headache, unspecified; Z88.5 Allergy status to narcotic agent; Z88.8 Allergy status to other drugs, medicaments and biological substances; Z91.040 Latex allergy status; Z79.899 Other long term (current) drug therapy
CPT/HCPCS: 96365; 96366; J1459

== ENCOUNTER 2024-10-13 02:33 | Day surgery (SDC) | payer MEDICARE, BC ==
[~2024-10-13 02:33] MED LIST changes: +Estrace Vagin42.5 GM TOP; -Estrace Vagin42.5 GM VAG; +IMMUN GLOB G(IGG)/PRO/IGA 0-50 100 ML IV SCH; +NYSTATIN PO; +PARO10 PO
[2024-10-13 13:47] VITALS: BP 133/73
[2024-10-13 14:47] VITALS: BP 114/66
[2024-10-13 15:05] VITALS: BP 126/75
[2024-10-13 15:07] VITALS: BP 126/75
[2024-10-13 15:16] VITALS: BP 125/73
[2024-10-13 15:41] VITALS: BP 118/64
[2024-10-13 17:49] LABS: BASOPHILS ABSOLUTE AUTO 0.03 K/mm3 (0.00-0.23); BASOPHILS PERCENT AUTO 1 % (0-2); EOSINOPHILS ABSOLUTE AUTO 0.24 K/mm3 (0.00-0.68); EOSINOPHILS PERCENT AUTO 5 % (0-6); Hematocrit 37.9 % (33.0-51.0); Hemoglobin 11.6 g/dL (11.5-16.0); IMMATURE GRAN PERCENT AUTO 0 % (0-1); LYMPHOCYTES ABSOLUTE AUTO 1.05 K/mm3 (0.84-5.20); LYMPHOCYTES PERCENT AUTO 20 % (21-46); MONOCYTES ABSOLUTE AUTO 0.69 K/mm3 (0.16-1.47); MONOCYTES PERCENT AUTO 13 % (4-13); Mean Corpuscular HGB 24.2 pg (26.0-34.0); Mean Corpuscular HGB Conc 30.6 g/dL (31.5-36.5); Mean Corpuscular Volume 79 fL (80-100); Mean Platelet Volume 10.8 fL (9.1-12.4); NEUTROPHILS PERCENT AUTO 62 % (41-73); Platelet Count 156 K/mm3 (150-400); RDW Coefficient Variation 19.1 % (11.7-14.2); RDW Standard Deviation 54.4 fL (35.1-46.3); White Blood Cell Count 5.31 K/mm3 (4.00-11.30)
[2024-10-26] MEDS ORDERED: AMOCLA875 PO (15:20)
== END 2024-10-13 17:18 | disposition home or self-care (01) ==
LOC: ATC 02:33
PROVIDERS: Student in an Organized Health Care Education/Training Program
DX: M33.20 Polymyositis, organ involvement unspecified (principal); R51.9 Headache, unspecified; R05.3 Chronic cough; Z88.5 Allergy status to narcotic agent; Z91.040 Latex allergy status; Z79.899 Other long term (current) drug therapy
CPT/HCPCS: 85025; 96365; 96366; J1459

== ENCOUNTER 2024-10-23 14:56 | Emergency (ER) | payer MEDICARE, BC ==
[~2024-10-23] VITALS: Ht 152.4 cm; Wt 69.8 kg
[~2024-10-23 14:56] MED LIST changes: -Estrace Vagin42.5 GM TOP; +Estrace Vagin42.5 GM VAG; -IMMUN GLOB G(IGG)/PRO/IGA 0-50 100 ML IV SCH; -NYSTATIN PO; -PARO10 PO
[2024-10-23 16:04] LABS: Albumin, Blood 3.6 g/dL (3.4-5.0); Albumin/Globulin Ratio 0.9 (0.8-1.8); Bilirubin, Total 0.4 mg/dL (0.1-1.0); Bun/Creatinine Ratio 34.2 (12.0-20.0); Calcium, Blood 8.3 mg/dL (8.5-10.1); Creatinine, Blood 0.44 mg/dL (0.40-1.00); Globulin, Blood 4.2 g/dL (2.2-4.0); Potassium, Blood 5.7 mmol/L (3.5-5.5); Total Protein, Blood 7.8 g/dL (6.4-8.2)
[2024-10-23 16:15] LABS: BASOPHILS ABSOLUTE AUTO 0.03 K/mm3 (0.00-0.23); BASOPHILS PERCENT AUTO 0 % (0-2); EOSINOPHILS ABSOLUTE AUTO 0.04 K/mm3 (0.00-0.68); EOSINOPHILS PERCENT AUTO 0 % (0-6); Hematocrit 45.8 % (33.0-51.0); Hemoglobin 14.4 g/dL (11.5-16.0); IMMATURE GRAN ABSOLUTE AUTO 0.03 K/mm3 (0.00-0.10); IMMATURE GRAN PERCENT AUTO 0 % (0-1); LYMPHOCYTES ABSOLUTE AUTO 1.29 K/mm3 (0.84-5.20); LYMPHOCYTES PERCENT AUTO 12 % (21-46); MONOCYTES ABSOLUTE AUTO 0.82 K/mm3 (0.16-1.47); MONOCYTES PERCENT AUTO 8 % (4-13); Mean Corpuscular HGB 24.6 pg (26.0-34.0); Mean Corpuscular HGB Conc 31.4 g/dL (31.5-36.5); Mean Corpuscular Volume 78 fL (80-100); Mean Platelet Volume 10.4 fL (9.1-12.4); NEUTROPHILS ABSOLUTE AUTO 8.67 K/mm3 (1.96-9.15); NEUTROPHILS PERCENT AUTO 80 % (41-73); Platelet Count 208 K/mm3 (150-400); RDW Coefficient Variation 19.4 % (11.7-14.2); RDW Standard Deviation 52.9 fL (35.1-46.3); Red Blood Cell Count 5.86 M/mm3 (3.80-5.20); White Blood Cell Count 10.88 K/mm3 (4.00-11.30)
[2024-10-23 16:33] LABS: Source, Urine Clean Catch
[2024-10-23 16:47] LABS: Appearance, Urine Hazy (Clear); Bilirubin, Urine Neg (Neg); Blood, Urine 1+ (Neg); Color, Urine Yellow (P-Yellow); Glucose Qualitative, Urine Neg (Neg); Ketones, Urine Neg (Neg); Leukocyte Esterase, Urine 3+ (Neg); Nitrite, Urine Pos (Neg); Protein, Urine Neg (Neg); Urobilinogen, Urine NORM (Normal)
[2024-10-23 17:06] LABS: Bacteria Many /hpf; Squamous Epithelial Cells Many /hpf (Few); White Blood Cells, Urine 25-50 /hpf (0-5)
[2024-10-23] MEDS ORDERED: Furosemide 10 MG/ML 4ML Vial IV ONE (17:45)
[2024-10-23] MEDS ORDERED: Albuterol 2.5 MG/3 ML VIAL INH SCH (17:45)
[2024-10-23] MEDS ORDERED: Dextrose 50% 50 ML Syringe IV ONE (17:45)
[2024-10-23] MEDS ORDERED: Sodium Zirconium Cyclosilicate 10 GM Packet PO ONE (17:45)
[2024-10-23] MEDS ORDERED: Insulin Regular 100 Unit/ML 1ML Dose IV ONE (17:45)
[2024-10-23] MEDS ORDERED: Cephalexin Monohydrate 500 MG Cap PO ONE (17:50)
[2024-10-23] MEDS ORDERED: Dextrose 50% 50 ML Vial IV ONE (17:55)
[2024-10-23] MEDS ORDERED: Ondansetron HCl 2 MG / ML 2ML Vial IV ONE (18:05)
[2024-10-23] MEDS ORDERED: Morphine Sulfate 4 MG/1 ML Injection IV ONE (18:05)
[2024-10-23] MEDS ORDERED: Ciprofloxacin 400MG/D5 200ML 200 ML IV ONE (19:10)
[2024-10-23 21:17] LABS: Bun/Creatinine Ratio 23.4 (12.0-20.0); Calcium, Blood 8.3 mg/dL (8.5-10.1); Creatinine, Blood 0.6 mg/dL (0.40-1.00)
[2024-10-23 21:21] LABS: Potassium, Blood 3.4 mmol/L (3.5-5.5)
[2024-10-23 21:58] LABS: Source, Urine Foley catheter
[2024-10-23 22:11] LABS: Appearance, Urine Clear (Clear); Bilirubin, Urine Neg (Neg); Blood, Urine Neg (Neg); Color, Urine Yellow (P-Yellow); Glucose Qualitative, Urine 1+ (Neg); Ketones, Urine Neg (Neg); Leukocyte Esterase, Urine 2+ (Neg); Nitrite, Urine Pos (Neg); Protein, Urine Neg (Neg); Urobilinogen, Urine NORM (Normal)
[2024-10-23 22:24] LABS: Bacteria Many /hpf; Red Blood Cells, Urine 0-2 /hpf (0-2); Squamous Epithelial Cells Mod /hpf (Few)
[2024-10-23] MEDS ORDERED: CIPR500 PO (23:49)
[2024-10-24 01:00] VITALS: BP 98/60
[2024-10-26] MEDS ORDERED: AMOCLA875 PO ×2 (15:20)
[2024-11-10] MEDS ORDERED: AMOX-CLAV 875-1 EAC5 PO (14:05)
[2024-11-11] MEDS ORDERED: NYSTATIN500000 UNI PO ×2 (13:53)
[2024-11-11] MEDS ORDERED: KETO15TC TOP ×2 (15:23)
[2024-11-11] MEDS ORDERED: ERTAPENEM1 G1 IV ×2 (15:42)
== END 2024-10-24 01:28 | disposition home or self-care (01) ==
LOC: ER 14:56
PROVIDERS: Emergency Medicine; Student in an Organized Health Care Education/Training Program
DX: N39.0 Urinary tract infection, site not specified (principal); R33.9 Retention of urine, unspecified; E87.5 Hyperkalemia; Z87.442 Personal history of urinary calculi; E78.5 Hyperlipidemia, unspecified; J45.909 Unspecified asthma, uncomplicated; Z87.891 Personal history of nicotine dependence; Z79.899 Other long term (current) drug therapy; Z79.891 Long term (current) use of opiate analgesic; Z79.51 Long term (current) use of inhaled steroids; Z79.52 Long term (current) use of systemic steroids; Z79.83 Long term (current) use of bisphosphonates; Z88.5 Allergy status to narcotic agent; Z91.040 Latex allergy status; Z88.9 Allergy status to unspecified drugs, medicaments and biological substances
CPT/HCPCS: 51702; 51798; 71046; 74177; 80048; 80053; 81001; 83690; 83880; 84484; 85025; 87077; 87086; 87186; 93005; 93010; 94644; 94664; 96374-59; 96375; 99285-25; A6590; A9270; J0744; J1815; J1938; J1940; J2270; J2405; J7799; Q9967

== ENCOUNTER 2024-10-27 05:09 | Day surgery (SDC) | payer MEDICARE, BC ==
[2024-10-27] VITALS (7 sets, daily range): BP systolic 117–138; BP diastolic 71–85
[~2024-10-27 05:09] MED LIST changes: +AMOCLA875 PO; +CIPR500 PO; +Estrace Vagin42.5 GM TOP; -Estrace Vagin42.5 GM VAG; +NYSTATIN PO; +PARO10 PO
[2024-10-27] MEDS ORDERED: IMMUN GLOB G(IGG)/PRO/IGA 0-50 100 ML IV SCH (06:00)
== END 2024-10-27 17:10 | disposition home or self-care (01) ==
LOC: ATC 05:09
DX: M33.20 Polymyositis, organ involvement unspecified (principal); R51.9 Headache, unspecified; Z88.5 Allergy status to narcotic agent; Z88.8 Allergy status to other drugs, medicaments and biological substances; Z91.040 Latex allergy status; Z79.899 Other long term (current) drug therapy
CPT/HCPCS: 96365; 96366; J1459

== ENCOUNTER → 2024-11-07 | Outpatient (CLI) | payer MEDICARE, BC ==
[~2024-11-07] MED LIST changes: +AMOX-CLAV 875-1 EAC5 PO; +ERTAPENEM1 G1 IV; -Estrace Vagin42.5 GM TOP; +Estrace Vagin42.5 GM VAG; +KETO15TC TOP; -NYSTATIN PO; +NYSTATIN500000 UNI PO; +Nitrofurantoin100 M1 PO; -PARO10 PO
== END ==
LOC: LAB 16:45 → LAB SHORT 16:45
DX: N39.0 Urinary tract infection, site not specified (principal)
CPT/HCPCS: 87077; 87086; 87186

== ENCOUNTER 2024-11-10 17:10 | Observation (INO) | payer MEDICARE, BC ==
[~2024-11-10] VITALS: Ht 162.6 cm; Wt 69.6 kg
[~2024-11-10 17:10] MED LIST changes: -ERTAPENEM1 G1 IV; -KETO15TC TOP; -NYSTATIN500000 UNI PO; -Nitrofurantoin100 M1 PO
[2024-11-10 19:03] LABS: BASOPHILS ABSOLUTE AUTO 0.02 K/mm3 (0.00-0.23); BASOPHILS PERCENT AUTO 0 % (0-2); EOSINOPHILS ABSOLUTE AUTO 0.27 K/mm3 (0.00-0.68); EOSINOPHILS PERCENT AUTO 5 % (0-6); Hematocrit 38.6 % (33.0-51.0); Hemoglobin 12.3 g/dL (11.5-16.0); IMMATURE GRAN ABSOLUTE AUTO 0.01 K/mm3 (0.00-0.10); IMMATURE GRAN PERCENT AUTO 0 % (0-1); LYMPHOCYTES ABSOLUTE AUTO 1.21 K/mm3 (0.84-5.20); LYMPHOCYTES PERCENT AUTO 23 % (21-46); MONOCYTES PERCENT AUTO 13 % (4-13); Mean Corpuscular HGB 25.2 pg (26.0-34.0); Mean Corpuscular HGB Conc 31.9 g/dL (31.5-36.5); Mean Corpuscular Volume 79 fL (80-100); Mean Platelet Volume 10.3 fL (9.1-12.4); NEUTROPHILS ABSOLUTE AUTO 3.14 K/mm3 (1.96-9.15); NEUTROPHILS PERCENT AUTO 59 % (41-73); Platelet Count 146 K/mm3 (150-400); RDW Coefficient Variation 18.4 % (11.7-14.2); RDW Standard Deviation 52.7 fL (35.1-46.3); Red Blood Cell Count 4.89 M/mm3 (3.80-5.20); White Blood Cell Count 5.35 K/mm3 (4.00-11.30)
[2024-11-10 19:30] LABS: Albumin/Globulin Ratio 0.5 (0.8-1.8); Bilirubin, Total 0.2 mg/dL (0.1-1.0); Bun/Creatinine Ratio 19.5 (12.0-20.0); Calcium, Blood 8.5 mg/dL (8.5-10.1); Creatinine, Blood 0.51 mg/dL (0.40-1.00); Globulin, Blood 5.6 g/dL (2.2-4.0); Potassium, Blood 3.4 mmol/L (3.5-5.5); Total Protein, Blood 8.6 g/dL (6.4-8.2)
[2024-11-10 21:21] LABS: Source, Urine Clean Catch
[2024-11-10 21:27] LABS: Appearance, Urine Clear (Clear); Bilirubin, Urine Neg (Neg); Blood, Urine Neg (Neg); Color, Urine Yellow (P-Yellow); Glucose Qualitative, Urine Neg (Neg); Ketones, Urine Neg (Neg); Leukocyte Esterase, Urine Neg (Neg); Nitrite, Urine Neg (Neg); Protein, Urine 1+ (Neg); Urobilinogen, Urine NORM (Normal)
[2024-11-10] MEDS ORDERED: CefOXitin Sodium 2,000 MG in NS 50 ML IV ONE (22:25)
[2024-11-10] MEDS ORDERED: Ondansetron HCl 2 MG / ML 2ML Vial IV PRN (23:20)
[2024-11-10] MEDS ORDERED: Acetaminophen 325 MG TABLET PO PRN (23:20)
[2024-11-11] MEDS ORDERED: Polyethylene Glycol 3350 17 gm PO PRN (01:40)
[2024-11-11] MEDS ORDERED: Sennosides 8.6 MG Tab PO PRN (01:40)
[2024-11-11] MEDS ORDERED: HYDROcodone 5-APAP 325 TAB PO PRN (01:45)
[2024-11-11 01:51] VITALS: BP 178/85
[2024-11-11 01:56] VITALS: BP 162/77
[2024-11-11] MEDS ORDERED: Meropenem 1,000 MG in NS 100 ML IV SCH (01:56)
[2024-11-11] MEDS ORDERED: Miconazole Nitrate 2% 85 GM PWD TOP SCH (02:40)
[2024-11-11] MEDS ORDERED: NS 250 ML IV PRN (02:40)
--- NOTE | 2024-11-11 04:11 | NUR ---
ADMIT NOTE/SHIFT SUMMARY REPORT WAS RECEIVED FROM THE ER AND PT WAS BROUGHT DOWN ON GURNEY AND TRANSFERRED TO HER BED AT 0145. PT WAS ORIENTED TO HER ROOM AND STAFF. PT ALERT ORIENTED X 4 ABLE TO VERBALIZE NEEDS. REQUIRES 1 PERSON SBA WITH WALKER AND AMBULATES TO THE BATHROOM. SHE WAS PUT INTO CONTACT ISOLATION R/T HX OF ESBL IN URINE. C/O GENERALIZED PAIN. BP REMAINS SLIGHTLY HIGH AT 162/72. SHE WAS STARTED ON MEROPENEM Q8HR FOR DYSURIA AND HX OF UTIS. SHE HAS CRACKED DRY SKIN TO BILAT ELBOWS FEET AND MID BACK, EXCORIATIONS TO THIGHS, KRYSTIN AREA, UNDER BREASTS, UNDER ABD FOLDS, AND BUTTOCKS. LABS TO BE DRAWN THIS AM. RESTING IN BED AT THIS TIME WITH CALL LIGHT IN REACH
[2024-11-11 05:24] LABS: BASOPHILS ABSOLUTE AUTO 0.02 K/mm3 (0.00-0.23); BASOPHILS PERCENT AUTO 0 % (0-2); EOSINOPHILS ABSOLUTE AUTO 0.29 K/mm3 (0.00-0.68); EOSINOPHILS PERCENT AUTO 6 % (0-6); Hematocrit 37.4 % (33.0-51.0); Hemoglobin 11.9 g/dL (11.5-16.0); IMMATURE GRAN ABSOLUTE AUTO 0.01 K/mm3 (0.00-0.10); IMMATURE GRAN PERCENT AUTO 0 % (0-1); LYMPHOCYTES ABSOLUTE AUTO 1.21 K/mm3 (0.84-5.20); LYMPHOCYTES PERCENT AUTO 27 % (21-46); MONOCYTES ABSOLUTE AUTO 0.58 K/mm3 (0.16-1.47); MONOCYTES PERCENT AUTO 13 % (4-13); Mean Corpuscular HGB 24.7 pg (26.0-34.0); Mean Corpuscular HGB Conc 31.8 g/dL (31.5-36.5); Mean Corpuscular Volume 78 fL (80-100); Mean Platelet Volume 10.3 fL (9.1-12.4); NEUTROPHILS ABSOLUTE AUTO 2.45 K/mm3 (1.96-9.15); NEUTROPHILS PERCENT AUTO 54 % (41-73); Platelet Count 143 K/mm3 (150-400); RDW Coefficient Variation 18.3 % (11.7-14.2); RDW Standard Deviation 50.5 fL (35.1-46.3); Red Blood Cell Count 4.81 M/mm3 (3.80-5.20); White Blood Cell Count 4.56 K/mm3 (4.00-11.30)
[2024-11-11 05:56] LABS: Albumin, Blood 2.7 g/dL (3.4-5.0); Albumin/Globulin Ratio 0.5 (0.8-1.8); Bilirubin, Total 0.2 mg/dL (0.1-1.0); Bun/Creatinine Ratio 18.4 (12.0-20.0); Creatinine, Blood 0.49 mg/dL (0.40-1.00); Globulin, Blood 5.2 g/dL (2.2-4.0); Magnesium, Blood 1.8 mg/dL (1.6-2.4); Potassium, Blood 3.4 mmol/L (3.5-5.5); Thyroid Stimulating Hormone 10.5 uIU/mL (0.360-4.800); Total Protein, Blood 7.9 g/dL (6.4-8.2)
[2024-11-11] MEDS ORDERED: Levothyroxine Sodium 0.15 MG Tab PO SCH (06:00)
[2024-11-11 07:37] VITALS: BP 141/69
[2024-11-11] MEDS ORDERED: Enoxaparin 40 MG/0.4 ML SYR SC SCH (09:00)
[2024-11-11] MEDS ORDERED: Cholecalciferol 1000 Unit Tablet (=25MCG) PO SCH (09:00)
[2024-11-11] MEDS ORDERED: Folic Acid 1 MG TAB PO SCH (09:00)
[2024-11-11] MEDS ORDERED: Lactobacil 2-S.Thermo-Bifido 1 1 Cap PO SCH (09:00)
[2024-11-11] MEDS ORDERED: Potassium Chloride 20 MEQ TabCR PO ONE (09:55)
[2024-11-11 10:38] LABS: Triiodothyronine, Free 1.71 pg/mL (2.18-3.98)
--- NOTE | 2024-11-11 12:13 | NUR ---
BLADDER SCAN 174
[2024-11-11] MEDS ORDERED: Potassium Chloride 10 Meq Tablet SA PO ONE (12:20)
[2024-11-11] MEDS ORDERED: Nitrofurantoin100 M1 PO (13:17)
[2024-11-11] MEDS ORDERED: NYSTATIN500000 UNI PO (13:53)
[2024-11-11] MEDS ORDERED: VISBIOME 112.51 EACH PO (15:22)
[2024-11-11] MEDS ORDERED: KETO15TC TOP (15:23)
[2024-11-11 15:29] VITALS: BP 135/78
[2024-11-11] MEDS ORDERED: ERTAPENEM1 G1 IV (15:42)
--- NOTE | 2024-11-11 18:29 | NUR ---
GAVE DISCHARGE INSTRUCTIONS TO PATIENT AND SISTER VIA PHONE . BOTH VERBALIZED UNDERSTANDING OF NEW MEDICATION AND ABX SCHEDULE. PT DENIES PAIN AND WILL LEAVE VIA WC WITH STAFF TO MEET SISTER AT FRONT DOOR
[2024-11-11] MEDS ORDERED: Amitriptyline HCl 10 MG Tab PO SCH (21:00)
[2024-11-11] MEDS ORDERED: Montelukast Sodium 10 MG Tab PO SCH (21:00)
== END 2024-11-11 19:02 | disposition home or self-care (01) ==
LOC: ER 17:10 → MEDS 17:11 → ERHOLD 17:11 → MEDS 11-11 01:40
PROVIDERS: Emergency Medicine; Family Medicine; ADMIT Student in an Organized Health Care Education/Training Program
DX: N39.0 Urinary tract infection, site not specified (principal); B96.20 Unspecified Escherichia coli [E. coli] as the cause of diseases classified elsewhere; Z16.12 Extended spectrum beta lactamase (ESBL) resistance; E87.6 Hypokalemia; E03.9 Hypothyroidism, unspecified; D69.6 Thrombocytopenia, unspecified; F32.A Depression, unspecified; K21.9 Gastro-esophageal reflux disease without esophagitis; E78.5 Hyperlipidemia, unspecified; J45.909 Unspecified asthma, uncomplicated; Z87.442 Personal history of urinary calculi; Z87.448 Personal history of other diseases of urinary system; Z87.891 Personal history of nicotine dependence; Z88.8 Allergy status to other drugs, medicaments and biological substances; Z88.5 Allergy status to narcotic agent; Z91.040 Latex allergy status; Z79.899 Other long term (current) drug therapy; Z79.890 Hormone replacement therapy; M33.20 Polymyositis, organ involvement unspecified
CPT/HCPCS: 36415; 80053; 83605; 83735; 84439; 84443; 84481; 85025; 87040; 96365; 96366; 96372; 96376; 99284; A9270; G0378; J0694; J1459; J1650; J2185; J7050

== ENCOUNTER 2024-11-12 01:07 | Day surgery (SDC) | payer MEDICARE, BC ==
[~2024-11-12 01:07] MED LIST changes: +ERTAPENEM1 G1 IV; +Ertapenem Sodium 1,000 MG in NS 50 ML IV SCH; +KETO15TC TOP; +NYSTATIN500000 UNI PO; +Nitrofurantoin100 M1 PO
[2024-11-12 13:50] VITALS: BP 148/82
== END 2024-11-12 14:04 | disposition home or self-care (01) ==
LOC: ATC 01:07
DX: N39.0 Urinary tract infection, site not specified (principal); B96.20 Unspecified Escherichia coli [E. coli] as the cause of diseases classified elsewhere; R32 Unspecified urinary incontinence; G89.29 Other chronic pain; M54.9 Dorsalgia, unspecified; E03.9 Hypothyroidism, unspecified; K21.9 Gastro-esophageal reflux disease without esophagitis; E78.5 Hyperlipidemia, unspecified; J45.909 Unspecified asthma, uncomplicated; M33.20 Polymyositis, organ involvement unspecified; Z16.12 Extended spectrum beta lactamase (ESBL) resistance; Z87.891 Personal history of nicotine dependence; Z79.2 Long term (current) use of antibiotics; Z79.890 Hormone replacement therapy; Z79.899 Other long term (current) drug therapy
CPT/HCPCS: 96365; J1335

== ENCOUNTER 2024-11-13 02:32 | Day surgery (SDC) | payer MEDICARE, BC ==
[2024-11-13 13:36] VITALS: BP 134/76
== END 2024-11-13 13:55 | disposition home or self-care (01) ==
LOC: ATC 02:32
DX: N39.0 Urinary tract infection, site not specified (principal); B96.20 Unspecified Escherichia coli [E. coli] as the cause of diseases classified elsewhere; Z16.12 Extended spectrum beta lactamase (ESBL) resistance; J45.909 Unspecified asthma, uncomplicated; K21.9 Gastro-esophageal reflux disease without esophagitis; E78.5 Hyperlipidemia, unspecified; Z87.891 Personal history of nicotine dependence; Z88.5 Allergy status to narcotic agent; Z88.8 Allergy status to other drugs, medicaments and biological substances; Z91.040 Latex allergy status; Z79.890 Hormone replacement therapy; Z79.899 Other long term (current) drug therapy
CPT/HCPCS: 96365; J1335

== ENCOUNTER 2024-11-14 04:41 | Day surgery (SDC) | payer MEDICARE, BC ==
[2024-11-14 13:42] VITALS: BP 135/82
== END 2024-11-14 14:08 | disposition home or self-care (01) ==
LOC: ATC 04:41
DX: N39.0 Urinary tract infection, site not specified (principal); B96.20 Unspecified Escherichia coli [E. coli] as the cause of diseases classified elsewhere; Z16.12 Extended spectrum beta lactamase (ESBL) resistance; J45.909 Unspecified asthma, uncomplicated; E03.9 Hypothyroidism, unspecified; K21.9 Gastro-esophageal reflux disease without esophagitis; E78.5 Hyperlipidemia, unspecified; Z87.891 Personal history of nicotine dependence; Z88.8 Allergy status to other drugs, medicaments and biological substances; Z88.5 Allergy status to narcotic agent; Z91.040 Latex allergy status; Z79.899 Other long term (current) drug therapy
CPT/HCPCS: 96365; J1335

== ENCOUNTER 2024-11-15 00:28 | Day surgery (SDC) | payer MEDICARE, BC ==
[~2024-11-15 00:28] MED LIST changes: -Ertapenem Sodium 1,000 MG in NS 50 ML IV SCH
[2024-11-15] MEDS ORDERED: Ertapenem Sodium 1,000 MG in NS 50 ML IV SCH (01:00)
[2024-11-15 13:40] VITALS: BP 127/82
== END 2024-11-15 13:59 | disposition home or self-care (01) ==
LOC: ATC 00:28
DX: N39.0 Urinary tract infection, site not specified (principal); B96.20 Unspecified Escherichia coli [E. coli] as the cause of diseases classified elsewhere; G89.29 Other chronic pain; M54.9 Dorsalgia, unspecified; E03.9 Hypothyroidism, unspecified; K21.9 Gastro-esophageal reflux disease without esophagitis; E78.5 Hyperlipidemia, unspecified; J45.909 Unspecified asthma, uncomplicated; Z16.12 Extended spectrum beta lactamase (ESBL) resistance; Z87.891 Personal history of nicotine dependence; Z79.2 Long term (current) use of antibiotics; Z79.890 Hormone replacement therapy; Z79.899 Other long term (current) drug therapy; Z88.5 Allergy status to narcotic agent; Z88.8 Allergy status to other drugs, medicaments and biological substances; Z91.040 Latex allergy status
CPT/HCPCS: 96365; J1335

== ENCOUNTER 2024-11-16 05:43 | Day surgery (SDC) | payer MEDICARE, BC ==
[~2024-11-16 05:43] MED LIST changes: +Ertapenem Sodium 1,000 MG in NS 50 ML IV SCH
[2024-11-16 13:35] VITALS: BP 140/86
== END 2024-11-16 23:12 | disposition home or self-care (01) ==
LOC: ATC 05:43
DX: N39.0 Urinary tract infection, site not specified (principal); Z16.12 Extended spectrum beta lactamase (ESBL) resistance; E03.9 Hypothyroidism, unspecified; E78.5 Hyperlipidemia, unspecified; K21.9 Gastro-esophageal reflux disease without esophagitis; J45.909 Unspecified asthma, uncomplicated; Z87.891 Personal history of nicotine dependence; Z88.5 Allergy status to narcotic agent; Z88.8 Allergy status to other drugs, medicaments and biological substances; Z79.890 Hormone replacement therapy; Z79.899 Other long term (current) drug therapy
CPT/HCPCS: 96365; J1335

== ENCOUNTER 2024-11-17 02:49 | Day surgery (SDC) | payer MEDICARE, BC ==
[2024-11-17 13:44] VITALS: BP 137/82
== END 2024-11-17 14:12 | disposition home or self-care (01) ==
LOC: ATC 02:49
DX: N39.0 Urinary tract infection, site not specified (principal); B96.20 Unspecified Escherichia coli [E. coli] as the cause of diseases classified elsewhere; G89.29 Other chronic pain; M54.9 Dorsalgia, unspecified; E03.9 Hypothyroidism, unspecified; K21.9 Gastro-esophageal reflux disease without esophagitis; E78.5 Hyperlipidemia, unspecified; M33.20 Polymyositis, organ involvement unspecified; Z16.12 Extended spectrum beta lactamase (ESBL) resistance; Z87.891 Personal history of nicotine dependence; Z79.2 Long term (current) use of antibiotics; Z79.890 Hormone replacement therapy; Z79.899 Other long term (current) drug therapy; Z88.5 Allergy status to narcotic agent; Z88.8 Allergy status to other drugs, medicaments and biological substances; Z91.040 Latex allergy status
CPT/HCPCS: 96365; J1335

== ENCOUNTER 2024-11-24 00:30 | Day surgery (SDC) | payer MEDICARE, BC ==
[~2024-11-24] VITALS: Wt 70.7 kg
[~2024-11-24 00:30] MED LIST changes: -Ertapenem Sodium 1,000 MG in NS 50 ML IV SCH; +IMMUN GLOB G(IGG)/PRO/IGA 0-50 100 ML IV SCH
[2024-11-24 13:58] VITALS: BP 136/70
[2024-11-24 14:23] VITALS: BP 127/74
[2024-11-24 14:39] VITALS: BP 130/79
[2024-11-24 14:58] VITALS: BP 111/63
[2024-11-24 15:17] VITALS: BP 125/74
[2024-11-24 15:32] VITALS: BP 126/68
== END 2024-11-24 16:40 | disposition home or self-care (01) ==
LOC: ATC 00:30
DX: M33.20 Polymyositis, organ involvement unspecified (principal); M54.16 Radiculopathy, lumbar region; Z79.631 Long term (current) use of antimetabolite agent; Z79.890 Hormone replacement therapy; Z79.899 Other long term (current) drug therapy; Z88.5 Allergy status to narcotic agent; Z88.8 Allergy status to other drugs, medicaments and biological substances; Z91.040 Latex allergy status
CPT/HCPCS: 96365; 96366; J1459

== ENCOUNTER 2024-12-08 04:27 | Day surgery (SDC) | payer MEDICARE, BC ==
[~2024-12-08] VITALS: Ht 152.4 cm; Wt 71.5 kg
[~2024-12-08 04:27] MED LIST changes: -IMMUN GLOB G(IGG)/PRO/IGA 0-50 100 ML IV SCH
[2024-12-08 13:43] VITALS: BP 130/75
[2024-12-08] MEDS ORDERED: IMMUN GLOB G(IGG)/PRO/IGA 0-50 100 ML IV SCH (13:55)
[2024-12-08 14:58] VITALS: BP 120/68
[2024-12-08 15:16] VITALS: BP 131/74
[2024-12-08 15:31] VITALS: BP 126/71
== END 2024-12-08 17:03 | disposition home or self-care (01) ==
LOC: ATC 04:27
DX: M33.20 Polymyositis, organ involvement unspecified (principal); Z88.5 Allergy status to narcotic agent; Z88.8 Allergy status to other drugs, medicaments and biological substances; Z91.040 Latex allergy status; Z79.899 Other long term (current) drug therapy; Z79.890 Hormone replacement therapy
CPT/HCPCS: 96365; 96366; J1459

== ENCOUNTER 2024-12-11 09:55 | Day surgery (SDC) | payer MEDICARE, BC ==
[2024-12-11] MEDS ORDERED: Ertapenem Sodium 1,000 MG in NS 50 ML IV SCH (10:05)
[2024-12-11 16:00] VITALS: BP 156/79
== END 2024-12-11 16:32 | disposition home or self-care (01) ==
LOC: ATC 09:55
DX: N39.0 Urinary tract infection, site not specified (principal); I12.9 Hypertensive chronic kidney disease with stage 1 through stage 4 chronic kidney disease, or unspecified chronic kidney disease; N18.1 Chronic kidney disease, stage 1; D63.1 Anemia in chronic kidney disease; Z88.5 Allergy status to narcotic agent; Z88.8 Allergy status to other drugs, medicaments and biological substances; Z91.040 Latex allergy status; Z79.899 Other long term (current) drug therapy; Z79.890 Hormone replacement therapy
CPT/HCPCS: 96365; J1335

== ENCOUNTER 2024-12-12 02:30 | Day surgery (SDC) | payer MEDICARE, BC ==
[2024-12-12] MEDS ORDERED: Ertapenem Sodium 1,000 MG in NS 50 ML IV SCH (06:00)
[2024-12-12 14:37] VITALS: BP 127/72
== END 2024-12-12 14:59 | disposition home or self-care (01) ==
LOC: ATC 02:30
DX: N39.0 Urinary tract infection, site not specified (principal); M33.20 Polymyositis, organ involvement unspecified; M54.16 Radiculopathy, lumbar region; I12.9 Hypertensive chronic kidney disease with stage 1 through stage 4 chronic kidney disease, or unspecified chronic kidney disease; N18.1 Chronic kidney disease, stage 1; D63.1 Anemia in chronic kidney disease; N25.81 Secondary hyperparathyroidism of renal origin; E86.9 Volume depletion, unspecified; N13.30 Unspecified hydronephrosis; N20.0 Calculus of kidney; D50.9 Iron deficiency anemia, unspecified; E87.5 Hyperkalemia; E55.9 Vitamin D deficiency, unspecified; Z79.890 Hormone replacement therapy; Z79.899 Other long term (current) drug therapy; Z88.5 Allergy status to narcotic agent; Z88.8 Allergy status to other drugs, medicaments and biological substances; Z91.040 Latex allergy status
CPT/HCPCS: 96365; J1335

== ENCOUNTER 2024-12-13 01:24 | Day surgery (SDC) | payer MEDICARE, BC ==
[~2024-12-13 01:24] MED LIST changes: +Ertapenem Sodium 1,000 MG in NS 50 ML IV SCH
[2024-12-13 15:01] VITALS: BP 130/80
== END 2024-12-13 15:20 | disposition home or self-care (01) ==
LOC: ATC 01:24
DX: N39.0 Urinary tract infection, site not specified (principal); Z79.899 Other long term (current) drug therapy; Z88.5 Allergy status to narcotic agent; Z91.040 Latex allergy status
CPT/HCPCS: 96365; J1335

== ENCOUNTER 2024-12-14 03:40 | Day surgery (SDC) | payer MEDICARE, BC ==
[~2024-12-14 03:40] MED LIST changes: -Ertapenem Sodium 1,000 MG in NS 50 ML IV SCH
[2024-12-14] MEDS ORDERED: Ertapenem Sodium 1,000 MG in NS 50 ML IV SCH (06:00)
[2024-12-14 15:06] VITALS: BP 121/69
== END 2024-12-14 15:10 | disposition home or self-care (01) ==
LOC: ATC 03:40
DX: N39.0 Urinary tract infection, site not specified (principal); M33.20 Polymyositis, organ involvement unspecified; Z88.5 Allergy status to narcotic agent; Z88.8 Allergy status to other drugs, medicaments and biological substances; Z91.040 Latex allergy status; Z79.899 Other long term (current) drug therapy
CPT/HCPCS: 96365; J1335

== ENCOUNTER 2025-01-05 09:10 | Day surgery (SDC) | payer MEDICARE, BC ==
[2025-01-05] MEDS ORDERED: IMMUN GLOB G(IGG)/PRO/IGA 0-50 100 ML IV SCH (14:00)
[2025-01-05 14:12] VITALS: BP 116/65
[2025-01-05 14:52] VITALS: BP 120/66
[2025-01-05 15:09] VITALS: BP 120/77
[2025-01-05 15:25] VITALS: BP 117/70
[2025-01-05 15:41] VITALS: BP 124/72
== END 2025-01-05 17:05 | disposition home or self-care (01) ==
LOC: ATC 09:10
DX: M33.20 Polymyositis, organ involvement unspecified (principal)
CPT/HCPCS: 96365; 96366; J1459

== ENCOUNTER → 2025-01-16 | Outpatient (CLI) | payer MEDICARE, BC ==
[2025-01-16 15:34] LABS: BASOPHILS ABSOLUTE AUTO 0.06 K/mm3 (0.00-0.23); BASOPHILS PERCENT AUTO 1 % (0-2); EOSINOPHILS ABSOLUTE AUTO 0.27 K/mm3 (0.00-0.68); EOSINOPHILS PERCENT AUTO 5 % (0-6); Hematocrit 43.5 % (33.0-51.0); Hemoglobin 13.6 g/dL (11.5-16.0); IMMATURE GRAN ABSOLUTE AUTO 0.01 K/mm3 (0.00-0.10); IMMATURE GRAN PERCENT AUTO 0 % (0-1); LYMPHOCYTES ABSOLUTE AUTO 1.01 K/mm3 (0.84-5.20); LYMPHOCYTES PERCENT AUTO 17 % (21-46); MONOCYTES ABSOLUTE AUTO 0.56 K/mm3 (0.16-1.47); MONOCYTES PERCENT AUTO 10 % (4-13); Mean Corpuscular HGB Conc 31.3 g/dL (31.5-36.5); Mean Corpuscular Volume 80 fL (80-100); NEUTROPHILS ABSOLUTE AUTO 4.01 K/mm3 (1.96-9.15); NEUTROPHILS PERCENT AUTO 68 % (41-73); NRBC ABSOLUTE 0.00 K/mm3 (0.00-0.02); NRBC Auto 0.0 /100 WBC (0.0-0.2); Platelet Count 195 K/mm3 (150-400); RDW Coefficient Variation 17.0 % (11.7-14.2); RDW Standard Deviation 48.7 fL (35.1-46.3)
[2025-01-16 15:46] LABS: Alanine Aminotransfer (ALT/SGP 29.0 U/L (12-78); Albumin, Blood 3.8 g/dL (3.4-5.0); Albumin/Globulin Ratio 0.8 (0.8-1.8); Anion Gap 11.0 mmol/L (3-11); Aspartate Aminotrans (AST/SGOT 31.0 U/L (12-37); Bilirubin, Total 0.3 mg/dL (0.1-1.0); Blood Urea Nitrogen 12.0 mg/dL (8-24); CO2, Blood 27.0 mmol/L (21-32); Calcium, Blood 9.0 mg/dL (8.5-10.1); Chloride, Blood 100.0 mmol/L (98-108); Creatinine, Blood 0.62 mg/dL (0.40-1.00); Globulin, Blood 4.7 g/dL (2.2-4.0); Glucose, Blood 92.0 mg/dL (70-99); Potassium, Blood 4.3 mmol/L (3.5-5.5); Sodium, Blood 134.0 mmol/L (136-145); Total Protein, Blood 8.5 g/dL (6.4-8.2)
== END | disposition home or self-care (01) ==
LOC: LAB 15:30 → LAB SHORT 15:30
PROVIDERS: Physician Assistant
DX: N39.0 Urinary tract infection, site not specified (principal); R10.9 Unspecified abdominal pain
CPT/HCPCS: 80053; 85025; 87077; 87086; 87186

== ENCOUNTER 2025-01-19 01:14 | Day surgery (SDC) | payer MEDICARE, BC ==
[2025-01-19] MEDS ORDERED: IMMUN GLOB G(IGG)/PRO/IGA 0-50 100 ML IV SCH (06:00)
[2025-01-19 14:17] VITALS: BP 151/82
[2025-01-19 14:43] VITALS: BP 130/88
[2025-01-19 15:00] VITALS: BP 145/76
[2025-01-19 15:15] VITALS: BP 152/85
[2025-01-19 15:31] VITALS: BP 158/89
== END 2025-01-19 17:01 | disposition home or self-care (01) ==
LOC: ATC 01:14
DX: M33.20 Polymyositis, organ involvement unspecified (principal); I12.9 Hypertensive chronic kidney disease with stage 1 through stage 4 chronic kidney disease, or unspecified chronic kidney disease; N18.1 Chronic kidney disease, stage 1; D63.1 Anemia in chronic kidney disease; N25.81 Secondary hyperparathyroidism of renal origin; Z79.899 Other long term (current) drug therapy; Z88.8 Allergy status to other drugs, medicaments and biological substances; Z91.040 Latex allergy status; N39.0 Urinary tract infection, site not specified
CPT/HCPCS: 87077; 87086; 87186; 96365; 96366; J1459

== ENCOUNTER → 2025-01-19 | Outpatient (CLI) | payer MEDICARE, BC | END | disposition home or self-care (01) | LOC: LAB 16:08 → LAB SHORT 16:08 | DX: N39.0 Urinary tract infection, site not specified (principal) | CPT/HCPCS: 87077; 87086; 87186 ==

== ENCOUNTER 2025-01-28 02:55 | Day surgery (SDC) | payer MEDICARE, BC ==
[2025-01-28] MEDS ORDERED: Ertapenem Sodium 1,000 MG in NS 50 ML IV SCH (06:00)
[2025-01-28 15:45] VITALS: BP 144/89
== END 2025-01-28 16:15 | disposition home or self-care (01) ==
LOC: ATC 02:55
DX: N39.0 Urinary tract infection, site not specified (principal); I12.9 Hypertensive chronic kidney disease with stage 1 through stage 4 chronic kidney disease, or unspecified chronic kidney disease; N18.1 Chronic kidney disease, stage 1; D63.1 Anemia in chronic kidney disease; N25.81 Secondary hyperparathyroidism of renal origin; K21.9 Gastro-esophageal reflux disease without esophagitis; Z88.8 Allergy status to other drugs, medicaments and biological substances; Z91.040 Latex allergy status
CPT/HCPCS: 96365; J1335

== ENCOUNTER 2025-01-29 07:30 | Day surgery (SDC) | payer MEDICARE, BC ==
[2025-01-29] MEDS ORDERED: Ertapenem Sodium 1,000 MG in NS 50 ML IV SCH (08:35)
[2025-01-29 11:47] VITALS: BP 129/77
== END 2025-01-29 12:05 | disposition home or self-care (01) ==
LOC: ATC 07:30
DX: N39.0 Urinary tract infection, site not specified (principal); I12.9 Hypertensive chronic kidney disease with stage 1 through stage 4 chronic kidney disease, or unspecified chronic kidney disease; N18.1 Chronic kidney disease, stage 1; K21.9 Gastro-esophageal reflux disease without esophagitis; D63.1 Anemia in chronic kidney disease; N25.81 Secondary hyperparathyroidism of renal origin; Z79.631 Long term (current) use of antimetabolite agent; Z79.899 Other long term (current) drug therapy; Z88.5 Allergy status to narcotic agent; Z88.8 Allergy status to other drugs, medicaments and biological substances; Z91.040 Latex allergy status
CPT/HCPCS: 96365; J1335

== ENCOUNTER 2025-01-30 01:04 | Day surgery (SDC) | payer MEDICARE, BC ==
[~2025-01-30 01:04] MED LIST changes: +Ertapenem Sodium 1,000 MG in NS 50 ML IV SCH
[2025-01-30 11:52] VITALS: BP 147/71
== END 2025-01-30 12:13 | disposition home or self-care (01) ==
LOC: ATC 01:04
DX: N39.0 Urinary tract infection, site not specified (principal); I12.9 Hypertensive chronic kidney disease with stage 1 through stage 4 chronic kidney disease, or unspecified chronic kidney disease; N18.1 Chronic kidney disease, stage 1; K21.9 Gastro-esophageal reflux disease without esophagitis; D63.1 Anemia in chronic kidney disease; N25.81 Secondary hyperparathyroidism of renal origin; Z79.631 Long term (current) use of antimetabolite agent; Z79.899 Other long term (current) drug therapy; Z88.5 Allergy status to narcotic agent; Z88.8 Allergy status to other drugs, medicaments and biological substances; Z91.040 Latex allergy status
CPT/HCPCS: 96365; J1335

== ENCOUNTER 2025-01-31 01:06 | Day surgery (SDC) | payer MEDICARE, BC ==
[2025-01-31 11:45] VITALS: BP 148/84
== END 2025-01-31 12:18 | disposition home or self-care (01) ==
LOC: ATC 01:06
DX: N39.0 Urinary tract infection, site not specified (principal); I12.9 Hypertensive chronic kidney disease with stage 1 through stage 4 chronic kidney disease, or unspecified chronic kidney disease; N18.1 Chronic kidney disease, stage 1; K21.9 Gastro-esophageal reflux disease without esophagitis; D63.1 Anemia in chronic kidney disease; N25.81 Secondary hyperparathyroidism of renal origin; Z79.631 Long term (current) use of antimetabolite agent; Z79.899 Other long term (current) drug therapy; Z88.5 Allergy status to narcotic agent; Z88.8 Allergy status to other drugs, medicaments and biological substances; Z91.040 Latex allergy status
CPT/HCPCS: 96365; J1335

== ENCOUNTER 2025-02-01 00:26 | Day surgery (SDC) | payer MEDICARE, BC ==
[~2025-02-01 00:26] MED LIST changes: -Ertapenem Sodium 1,000 MG in NS 50 ML IV SCH
[2025-02-01] MEDS ORDERED: Ertapenem Sodium 1,000 MG in NS 50 ML IV SCH (01:00)
[2025-02-01] MEDS ORDERED: IMMUN GLOB G(IGG)/PRO/IGA 0-50 100 ML IV SCH (06:00)
[2025-02-01 13:38] VITALS: BP 130/83
[2025-02-01 14:32] VITALS: BP 132/74
[2025-02-01 14:47] VITALS: BP 135/82
[2025-02-01 15:15] VITALS: BP 140/76
== END 2025-02-01 16:48 | disposition home or self-care (01) ==
LOC: ATC 00:26
DX: M33.20 Polymyositis, organ involvement unspecified (principal); N39.0 Urinary tract infection, site not specified; B96.1 Klebsiella pneumoniae [K. pneumoniae] as the cause of diseases classified elsewhere; I12.9 Hypertensive chronic kidney disease with stage 1 through stage 4 chronic kidney disease, or unspecified chronic kidney disease; N18.1 Chronic kidney disease, stage 1; E86.9 Volume depletion, unspecified; K21.9 Gastro-esophageal reflux disease without esophagitis; D63.1 Anemia in chronic kidney disease; N25.81 Secondary hyperparathyroidism of renal origin; N13.2 Hydronephrosis with renal and ureteral calculous obstruction; E87.1 Hypo-osmolality and hyponatremia; E55.9 Vitamin D deficiency, unspecified; Z16.12 Extended spectrum beta lactamase (ESBL) resistance; Z79.631 Long term (current) use of antimetabolite agent; Z79.899 Other long term (current) drug therapy; Z88.5 Allergy status to narcotic agent; Z88.8 Allergy status to other drugs, medicaments and biological substances; Z91.040 Latex allergy status
CPT/HCPCS: 96365; 96366; 96367; J1335; J1459

== ENCOUNTER → 2025-02-09 | Outpatient (CLI) | payer MEDICARE, BC | LOC: LAB 15:57 → LAB SHORT 15:57 | DX: N39.0 Urinary tract infection, site not specified (principal) | CPT/HCPCS: 87077; 87086; 87186 ==

== ENCOUNTER 2025-02-16 04:16 | Day surgery (SDC) | payer MEDICARE, BC ==
--- NOTE | 2025-02-15 17:00 | NUR ---
Pt did not show for her appointment in the [facility] this afternoon. She is now on tomorrow's schedule for her IVIG infusion.
[~2025-02-16] VITALS: Ht 157.5 cm; Wt 69.5 kg
[2025-02-16 13:48] VITALS: BP 136/77
[2025-02-16] MEDS ORDERED: IMMUN GLOB G(IGG)/PRO/IGA 0-50 100 ML IV SCH (13:50)
[2025-02-16 14:38] VITALS: BP 137/78
[2025-02-16 14:57] VITALS: BP 124/70
[2025-02-16 15:22] VITALS: BP 138/82
[2025-02-16 15:41] VITALS: BP 131/71
== END 2025-02-16 17:10 | disposition home or self-care (01) ==
LOC: ATC 04:16
DX: M33.20 Polymyositis, organ involvement unspecified (principal); I12.9 Hypertensive chronic kidney disease with stage 1 through stage 4 chronic kidney disease, or unspecified chronic kidney disease; N18.1 Chronic kidney disease, stage 1; D63.1 Anemia in chronic kidney disease; N25.81 Secondary hyperparathyroidism of renal origin; K21.9 Gastro-esophageal reflux disease without esophagitis; Z79.899 Other long term (current) drug therapy
CPT/HCPCS: 96365; 96366; J1459

== ENCOUNTER 2025-02-20 00:31 | Day surgery (SDC) | payer MEDICARE, BC ==
[2025-02-20] MEDS ORDERED: Ertapenem Sodium 1,000 MG in NS 50 ML IV SCH (01:00)
[2025-02-20 10:17] VITALS: BP 123/48
== END 2025-02-20 10:53 | disposition home or self-care (01) ==
LOC: ATC 00:31
DX: N39.0 Urinary tract infection, site not specified (principal); I12.9 Hypertensive chronic kidney disease with stage 1 through stage 4 chronic kidney disease, or unspecified chronic kidney disease; N18.1 Chronic kidney disease, stage 1; D63.1 Anemia in chronic kidney disease; N25.81 Secondary hyperparathyroidism of renal origin; E55.9 Vitamin D deficiency, unspecified; K21.9 Gastro-esophageal reflux disease without esophagitis; Z79.899 Other long term (current) drug therapy
CPT/HCPCS: 96365; J1335

== ENCOUNTER 2025-02-22 01:44 | Day surgery (SDC) | payer MEDICARE, BC ==
[~2025-02-22 01:44] MED LIST changes: +Ertapenem Sodium 1,000 MG in NS 50 ML IV SCH
[2025-02-22 11:41] VITALS: BP 138/79
== END 2025-02-22 12:10 | disposition home or self-care (01) ==
LOC: ATC 01:44
DX: N39.0 Urinary tract infection, site not specified (principal); I12.9 Hypertensive chronic kidney disease with stage 1 through stage 4 chronic kidney disease, or unspecified chronic kidney disease; N18.1 Chronic kidney disease, stage 1; D63.1 Anemia in chronic kidney disease; N25.81 Secondary hyperparathyroidism of renal origin; E55.9 Vitamin D deficiency, unspecified; Z79.899 Other long term (current) drug therapy; Z88.5 Allergy status to narcotic agent; Z88.8 Allergy status to other drugs, medicaments and biological substances; Z91.040 Latex allergy status
CPT/HCPCS: 81001; 87086; 96365; J1335

== ENCOUNTER → 2025-02-22 | Outpatient (CLI) | payer MEDICARE, BC ==
[2025-02-22 16:32] LABS: Source, Urine Voided
[2025-02-22 17:58] LABS: Bilirubin, Urine Neg (Neg); Color, Urine Yellow (P-Yellow); Glucose Qualitative, Urine Neg (Neg); Ketones, Urine Neg (Neg); Leukocyte Esterase, Urine 1+ (Neg); Protein, Urine Neg (Neg); Specific Gravity, Urine 1.010 (1.003-1.022); Urobilinogen, Urine NORM (Normal)
[2025-02-22 18:08] LABS: Red Blood Cells, Urine 0-2 /hpf (0-2)
== END | disposition home or self-care (01) ==
LOC: LAB 16:29 → LAB SHORT 16:29
PROVIDERS: Internal Medicine Nephrology
DX: N39.0 Urinary tract infection, site not specified (principal)
CPT/HCPCS: 81001; 87086

== ENCOUNTER 2025-02-23 08:37 | Day surgery (SDC) | payer MEDICARE, BC ==
[~2025-02-23 08:37] MED LIST changes: -Ertapenem Sodium 1,000 MG in NS 50 ML IV SCH
[2025-02-23] MEDS ORDERED: Ertapenem Sodium 1,000 MG in NS 50 ML IV SCH (10:50)
[2025-02-23 11:33] VITALS: BP 148/77
== END 2025-02-23 12:00 | disposition home or self-care (01) ==
LOC: ATC 08:37
DX: N39.0 Urinary tract infection, site not specified (principal); I12.9 Hypertensive chronic kidney disease with stage 1 through stage 4 chronic kidney disease, or unspecified chronic kidney disease; N18.1 Chronic kidney disease, stage 1; E86.9 Volume depletion, unspecified; D63.1 Anemia in chronic kidney disease; N25.81 Secondary hyperparathyroidism of renal origin; D50.9 Iron deficiency anemia, unspecified; E55.9 Vitamin D deficiency, unspecified; N17.9 Acute kidney failure, unspecified; K21.9 Gastro-esophageal reflux disease without esophagitis; N13.30 Unspecified hydronephrosis; Z79.631 Long term (current) use of antimetabolite agent; Z79.899 Other long term (current) drug therapy; Z88.5 Allergy status to narcotic agent
CPT/HCPCS: 96365; J1335

== ENCOUNTER 2025-03-02 00:48 | Day surgery (SDC) | payer MEDICARE, BC ==
[2025-03-02] MEDS ORDERED: IMMUN GLOB G(IGG)/PRO/IGA 0-50 100 ML IV SCH (07:00)
[2025-03-02 13:50] VITALS: BP 115/68
[2025-03-02 14:24] VITALS: BP 109/67
[2025-03-02 14:41] VITALS: BP 116/61
[2025-03-02 15:20] VITALS: BP 116/78
== END 2025-03-02 16:57 | disposition home or self-care (01) ==
LOC: ATC 00:48
DX: M33.20 Polymyositis, organ involvement unspecified (principal); I12.9 Hypertensive chronic kidney disease with stage 1 through stage 4 chronic kidney disease, or unspecified chronic kidney disease; N18.1 Chronic kidney disease, stage 1; K21.9 Gastro-esophageal reflux disease without esophagitis; N25.81 Secondary hyperparathyroidism of renal origin; D63.1 Anemia in chronic kidney disease; Z79.899 Other long term (current) drug therapy; Z91.040 Latex allergy status; Z88.5 Allergy status to narcotic agent; Z88.8 Allergy status to other drugs, medicaments and biological substances
CPT/HCPCS: 96365; 96366; J1459

== ENCOUNTER 2025-03-16 02:19 | Day surgery (SDC) | payer MEDICARE, BC ==
[2025-03-16] VITALS (10 sets, daily range): BP systolic 96–134; BP diastolic 60–84
[2025-03-16] MEDS ORDERED: IMMUN GLOB G(IGG)/PRO/IGA 0-50 100 ML IV SCH (06:00)
== END 2025-03-16 18:32 | disposition home or self-care (01) ==
LOC: ATC 02:19
DX: M33.20 Polymyositis, organ involvement unspecified (principal); I12.9 Hypertensive chronic kidney disease with stage 1 through stage 4 chronic kidney disease, or unspecified chronic kidney disease; N18.1 Chronic kidney disease, stage 1; D63.1 Anemia in chronic kidney disease; N25.81 Secondary hyperparathyroidism of renal origin; K21.9 Gastro-esophageal reflux disease without esophagitis; Z79.899 Other long term (current) drug therapy
CPT/HCPCS: 96365; 96366; J1459

== ENCOUNTER 2025-03-30 02:59 | Day surgery (SDC) | payer MEDICARE, BC ==
[2025-03-30] VITALS (10 sets, daily range): BP systolic 133–148; BP diastolic 54–83
[~2025-03-30] VITALS: Ht 157.5 cm; Wt 67.7 kg
[2025-03-30] MEDS ORDERED: IMMUN GLOB G(IGG)/PRO/IGA 0-50 100 ML IV SCH (23:59)
== END 2025-03-30 18:07 | disposition home or self-care (01) ==
LOC: ATC 02:59
DX: M33.20 Polymyositis, organ involvement unspecified (principal); I12.9 Hypertensive chronic kidney disease with stage 1 through stage 4 chronic kidney disease, or unspecified chronic kidney disease; N18.1 Chronic kidney disease, stage 1; K21.9 Gastro-esophageal reflux disease without esophagitis; D63.1 Anemia in chronic kidney disease; Z91.040 Latex allergy status; Z88.8 Allergy status to other drugs, medicaments and biological substances; Z79.899 Other long term (current) drug therapy
CPT/HCPCS: 96365; 96366; J1459

== ENCOUNTER 2025-04-16 01:22 | Day surgery (SDC) | payer MEDICARE, BC ==
[2025-04-16] VITALS (13 sets, daily range): BP systolic 113–141; BP diastolic 57–78
[2025-04-16] MEDS ORDERED: IMMUN GLOB G(IGG)/PRO/IGA 0-50 100 ML IV SCH (06:00)
== END 2025-04-16 17:36 | disposition home or self-care (01) ==
LOC: ATC 01:22
DX: M33.20 Polymyositis, organ involvement unspecified (principal); Z91.040 Latex allergy status; I12.9 Hypertensive chronic kidney disease with stage 1 through stage 4 chronic kidney disease, or unspecified chronic kidney disease; N18.1 Chronic kidney disease, stage 1; D63.1 Anemia in chronic kidney disease; N25.81 Secondary hyperparathyroidism of renal origin; Z88.8 Allergy status to other drugs, medicaments and biological substances; Z79.899 Other long term (current) drug therapy
CPT/HCPCS: 96365; 96366; J1459

== ENCOUNTER → 2025-04-20 | Outpatient (CLI) | payer MEDICARE, BC | LOC: LAB SHORT 11:22 → LAB 11:22 | DX: N39.0 Urinary tract infection, site not specified (principal) | CPT/HCPCS: 87077; 87086; 87147; 87186 ==

== ENCOUNTER 2025-04-27 00:47 | Day surgery (SDC) | payer MEDICARE, BC ==
[2025-04-27] VITALS (10 sets, daily range): BP systolic 129–156; BP diastolic 67–78
[~2025-04-27] VITALS: Ht 149.9 cm; Wt 67.7 kg
[2025-04-27] MEDS ORDERED: IMMUN GLOB G(IGG)/PRO/IGA 0-50 100 ML IV SCH (14:20)
== END 2025-04-27 18:25 | disposition home or self-care (01) ==
LOC: ATC 00:47
DX: M33.20 Polymyositis, organ involvement unspecified (principal); I12.9 Hypertensive chronic kidney disease with stage 1 through stage 4 chronic kidney disease, or unspecified chronic kidney disease; N18.1 Chronic kidney disease, stage 1; D63.1 Anemia in chronic kidney disease; N25.81 Secondary hyperparathyroidism of renal origin; K21.9 Gastro-esophageal reflux disease without esophagitis; Z79.899 Other long term (current) drug therapy
CPT/HCPCS: 96365; 96366; J1459

== ENCOUNTER 2025-05-25 01:51 | Day surgery (SDC) | payer MEDICARE, BC ==
[2025-05-25] VITALS (8 sets, daily range): BP systolic 113–139; BP diastolic 67–76
[2025-05-25] MEDS ORDERED: IMMUN GLOB G(IGG)/PRO/IGA 0-50 100 ML IV SCH (06:00)
== END 2025-05-25 17:10 | disposition home or self-care (01) ==
LOC: ATC 01:51
DX: M33.20 Polymyositis, organ involvement unspecified (principal); I12.9 Hypertensive chronic kidney disease with stage 1 through stage 4 chronic kidney disease, or unspecified chronic kidney disease; N18.1 Chronic kidney disease, stage 1; N25.81 Secondary hyperparathyroidism of renal origin; D63.1 Anemia in chronic kidney disease; E55.9 Vitamin D deficiency, unspecified; Z79.899 Other long term (current) drug therapy
CPT/HCPCS: 96365; 96366; J1459

== ENCOUNTER → 2025-06-04 | Outpatient (CLI) | payer MEDICARE, BC | END | disposition home or self-care (01) | LOC: LAB 11:35 → LAB SHORT 11:35 | DX: R30.0 Dysuria (principal) | CPT/HCPCS: 87077; 87086; 87186 ==

== ENCOUNTER 2025-06-22 00:13 | Day surgery (SDC) | payer MEDICARE, BC ==
[2025-06-22] MEDS ORDERED: IMMUN GLOB G(IGG)/PRO/IGA 0-50 100 ML IV SCH (06:00)
[2025-06-22 13:50] VITALS: BP 140/61
[2025-06-22 14:32] VITALS: BP 114/65
[2025-06-22 15:06] VITALS: BP 130/62
[2025-06-22 15:49] VITALS: BP 119/61
== END 2025-06-22 17:25 | disposition home or self-care (01) ==
LOC: ATC 00:13
DX: M33.20 Polymyositis, organ involvement unspecified (principal); I12.9 Hypertensive chronic kidney disease with stage 1 through stage 4 chronic kidney disease, or unspecified chronic kidney disease; N18.1 Chronic kidney disease, stage 1; N25.81 Secondary hyperparathyroidism of renal origin; D63.1 Anemia in chronic kidney disease; Z88.8 Allergy status to other drugs, medicaments and biological substances; Z91.040 Latex allergy status
CPT/HCPCS: 96365; 96366; J1459

== ENCOUNTER → 2025-07-05 | Outpatient (CLI) | payer MEDICARE, BC | END | disposition home or self-care (01) | LOC: LAB SHORT 19:07 → LAB 19:07 | DX: R35.0 Frequency of micturition (principal) | CPT/HCPCS: 87077; 87086; 87186 ==